=== PATIENT | female | born 2005 | race Caucasian/White ===

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

== ENCOUNTER 2024-10-29 11:28 | Inpatient (IN) | payer MEDICAID, SELFPAY ==
[2024-10-29 11:29] VITALS: BP 143/98; PULSE 97; RESP 18; TEMP 36.7; O2SAT 97; BMI 41.3
--- NOTE | 2024-10-29 11:42 | ED.C_ITS ---
HPI - Psych 2 General: Chief Complaint: Psychiatric Symptoms Stated Complaint: SI Time Seen by Provider: 10/29/24 11:29 Source: patient and EMS Mode of arrival: EMS Limitations: no limitations History of Present Illness: 19-year-old female who states that she h as been having suicidal ideations. She states that she is just been very depressed and has been having a plan of hanging herself. She had previous admissions in the past she has never been admitted here she denies any worse improving factors. Associated symptoms: Reports depression and suicidal ideation Related Data Home Medications Medication Instructions Recorded Confirmed polyethylene glycol 3350 17 17 g PO DAILY PRN constipation 12/09/21 10/29/24 gram/dose oral powder (Miralax) benztropine 1 mg tablet 1 mg PO BID 10/29/24 10/29/24 fluticasone propionate 50 1 spray intranasal DAILY 10/29/24 10/29/24 mcg/actuation nasal spray,suspension gemfibrozil 600 mg tablet 600 mg PO BID 10/29/24 10/29/24 guanfacine 4 mg tablet,extended 4 mg PO DAILY 10/29/24 10/29/24 release 24 hr haloperidol 5 mg tablet 5 mg PO BEDTIME 10/29/24 10/29/24 hydroxyzine HCl 50 mg tablet 50 mg PO TID PRN Itching 10/29/24 10/29/24 lithium carbonate 300 mg capsule 300 mg PO BEDTIME 10/29/24 10/29/24 loratadine 10 mg tablet 10 mg PO DAILY PRN ALLERGIES 10/29/24 10/29/24 metformin 500 mg tablet 500 mg PO BID 10/29/24 10/29/24 norethindrone 1 mg-ethinyl 1 tab PO DAILY 10/29/24 10/29/24 estradiol 20 mcg (21)-iron 75 mg (7) tablet omeprazole 20 mg capsule,delayed 20 mg PO DAILY 10/29/24 10/29/24 release oxcarbazepine 600 mg tablet 600 mg PO BID 10/29/24 10/29/24 sertraline 100 mg tablet 100 mg PO DAILY 10/29/24 10/29/24 Allergies Allergy/AdvReac Type Severity Reaction Status Date / Time divalproex sodium Allergy makes me Verified 01/29/21 07:50 [facility] stay awake for days at a time, no appetite ondansetron [From Zofran] Allergy hard time Verified 01/29/21 07:50 breathing Review of Systems 2 Const: Denies: fever(s), chills, body aches or change in appetite ENMT: Denies: throat pain or dental pain Card: Denies: chest pain Resp: Denies: dyspnea GI: Denies: abdominal pain, nausea, vomiting or diarrhea : Denies: dysuria Musc: Denies: neck pain or back pain Skin/Breast: Denies: rash Neuro: Denies: headache(s) Psych: Reports: depression and suicidal ideation All/Imm: Denies: urticaria PFSH ED 2 PFSH: Medical History (Updated 10/29/24 @ 13:16 by Caro Green MD) Psychiatric care Physical Exam 2 Const: COMMON NORMALS: no acute distress, patient oriented x3 and healthy appearing HENMT: COMMON NORMALS: normocephalic and atraumatic HEAD & SCALP: n ormocephalic and atraumatic Eye: COMMON NORMALS: Equal, round and reactive pupils present and EOMs intact bilaterally PUPIL: Yes Equal, round and reactive pupils present Neck/C-Spine: COMMON NORMALS: full ROM and supple Chest: COMMONS NORMALS: normal inspection of the chest Resp: COMMON NORMALS: normal respiratory effort, No retractions, No use of accessory muscles and clear to auscultation bilaterally AUSCULTATION: clear to auscultation bilaterally Cardio: COMMON NORMALS: regular rate, regular rhythm and No murmurs present (Cardio) RATE: regular rate RHYTHM: regular rhythm Extremity: COMMON NORMALS: normal to inspection and full ROM Neuro: COMMON NORMALS: patient oriented x3, moves all extremities and no focal motor deficits Psych: COMMON NORMALS: mental status grossly normal, Normal thought process present and cooperative THOUGHT PROCESS: Normal thought process present T HOUGHT CONTENT: Yes Suicidality present Skin: COMMON NORMALS: no rashes or lesions noted and no wounds GENERAL SKIN EXAM: no rashes or lesions noted Course 2 Vital Signs: Vital signs: Vital Signs Temperature 98.1 F 10/29/24 11:29 Pulse Rate 97 10/29/24 11:29 Respiratory Rate 18 10/29/24 11:29 Blood Pressure 143/98 10/29/24 11:29 Pulse Oximetry 97 10/29/24 11:29 Oxygen Delivery Me thod Room Air 10/29/24 11:29 MDM - Psych Medical Decision Making Patient presents here with suicidal ideations patient is medically cleared placed on a 96-hour hold and will admit at this time. Medical Records I reviewed the patient's medical records. Lab Data I reviewed the patient's lab results. 10/29/24 12:40 10/29/24 12:40 Laboratory Results WBC 9.95 10^3/uL (4.5-13.0) 10/29/24 12:40 RBC 4.81 10^6/uL (3.85-5.65) 10/29/24 12:40 Hgb 13.60 g/dL (12.4-14.8) 10/29/24 12:40 Hct 42.8 % (36-47) 10/29/24 12:40 MCV 89.0 fl (85-98) 10/29/24 12:40 MCH 28.3 pg (27-33) 10/29/24 12:40 MCHC 31.8 g/dL (30-55) 10/29/24 12:40 RDW 13.2 % (12.1-15.1) 10/29/24 12:40 Plt Count 344 10^3/cmm (157-399) 10/29/24 12:40 MPV 10.2 fL (7.4-10.4) 10/29/24 12:40 Neut % (Auto) 68.4 % 10/29/24 12:40 Lymph % (Auto) 23.4 % 10/29/24 12:40 [place] % (Auto) 6.9 % 10/29/24 12:40 Eos % (Auto) 0.2 % 10/29/24 12:40 Baso % (Auto) 0.5 % 10/29/24 12:40 Neut # (Auto) 6.80 10^3/uL (1.8-8.0) 10/29/24 12:40 Lymph # (Auto) 2.3 10^3/uL (1.5-6.5) 10/29/24 12:40 Carson # (Auto) 0.7 10^3/uL (0.2-0.9) 10/29/24 12:40 Eos # (Auto) 0.0 10^3/uL (0.0-0.8) 10/29/24 12:40 Baso # (Auto) 0.1 10^3/uL (0.0-0.1) 10/29/24 12:40 Nucleated RBC % (auto) 0 % 10/29/24 12:40 Nucleated RBCs # 0.0 /100WBC 10/29/24 12:40 Sodium 142 mmol/L (136-145) 10/29/24 12:40 Potassium 4.1 mmol/L (3.5-5.1) 10/29/24 12:40 Chloride 105 mmol/L (98-107) 10/29/24 12:40 Carbon Dioxide 22 mmol/L (22-29) 10/29/24 12:40 Anion Gap 19.1 (5-19) H 10/29/24 12:40 BUN 19 mg/dL (6-20) 10/29/24 12:40 Creatinine 0.5 mg/dL (0.5-0.9) 10/29/24 12:40 GFR Calculation 157.3 mL/min (90-130) H 10/29/24 12:40 Glucose 108 mg/dL (65-115) 10/29/24 12:40 Calculated Osmolality 297 mOsm/kg (285-295) H 10/29/24 12:40 Calcium 10.0 mg/dL (8.5-10.5) 10/29/24 12:40 Total Bilirubin 0.2 mg/dL (0.15-1.2) 10/29/24 12:40 AST 14 U/L (0-32) 10/29/24 12:40 ALT 10 U/L (0-33) 10/29/24 12:40 Alkaline Phosphatase 142 U/L (35-105) H 10/29/24 12:40 Total Protein 7.6 g/dL (6.6-8.7) 10/29/24 12:40 Albumin 4.6 g/dL (3.5-5.2) 10/29/24 12:40 Globulin 3.0 g/dL (1.3-4.6) 10/29/24 12:40 Salicylates < 0.3 mg/dL (3-10) L 10/29/24 12:40 Acetaminophen < 5.0 ug/mL (10-30) L 10/29/24 12:40 Ethyl Alcohol < 10 mg/dL (0-10) 10/29/24 12:40 All radiology interpretation(s) finalized by discharge Discharge Plan Discharge Patient Disposition: Admitted As Inpatient Admit Provider: Andrade Madrid Clinical Impression: Suicidal ideation Condition: Stable Coding Level of Care Code ED Classifier Operator for [place]
--- NOTE | 2024-10-29 11:50 | PC.NURSE ---
96 hr rights reviewed with patient @1150 with assistance of [facility] svp chief marketing officer Gatito Loredo All education reviewed with patient at this time. No verbalized questions or concerns for HS at time of rights being served. Pt was provided a copy of 96 hr rights. Pt also provided a sandwich. No other needs verbalized to HS.
[2024-10-29 12:48] LABS: Basophils # 0.1 10^3/uL (0.0-0.1); Basophils % 0.5 %; Eosinophils % 0.2 %; Hematocrit 42.8 % (36-47); Lymphocytes # 2.3 10^3/uL (1.5-6.5); Lymphocytes % 23.4 %; Mean Corpuscular HGB Conc 31.8 g/dL (30-55); Mean Corpuscular Hemoglobin 28.3 pg (27-33); Mean Platelet Volume 10.2 fL (7.4-10.4); Monocytes # 0.7 10^3/uL (0.2-0.9); Monocytes % 6.9 %; Neutrophils % 68.4 %; Nucleated Red Blood Cells % 0 %; Platelet Count 344 10^3/cmm (157-399); Red Blood Count 4.81 10^6/uL (3.85-5.65); Red Cell Distribution Width 13.2 % (12.1-15.1); White Blood Count 9.95 10^3/uL (4.5-13.0)
[2024-10-29 13:06] LABS: Alanine Aminotransferase 10 U/L (0-33); Albumin Level 4.6 g/dL (3.5-5.2); Alkaline Phosphatase 142 U/L (35-105); Anion Gap 19.1 (5-19); Aspartate Amino Transferase 14 U/L (0-32); Blood Urea Nitrogen 19 mg/dL (6-20); Carbon Dioxide 22 mmol/L (22-29); Chloride 105 mmol/L (98-107); Creatinine Clr Calc Pharmacy 263.4603; Glomerular Filtration Rate 157.3 mL/min (90-130); Glucose 108 mg/dL (65-115); Osmolality Calculated 297 mOsm/kg (285-295); Potassium 4.1 mmol/L (3.5-5.1); Sodium 142 mmol/L (136-145); Total Bilirubin 0.2 mg/dL (0.15-1.2); Total Protein 7.6 g/dL (6.6-8.7)
[2024-10-29 13:12] LABS: Acetaminophen < 5.0 ug/mL (10-30); Alcohol Level < 10 mg/dL (0-10); Salicylate < 0.3 mg/dL (3-10)
[2024-10-29 13:20] VITALS: BP 112/74; PULSE 110; RESP 16; TEMP 36.8; O2SAT 96
[2024-10-29 13:58] VITALS: BP 112/74; PULSE 110; RESP 16; TEMP 36.8; O2SAT 96
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
[2024-10-29 16:00] LABS: HCG Qualitative Urine. Negative (Negative)
[2024-10-29 16:39] LABS: Amphetamines Screen Urine Negative (Negative); Barbiturates Screen Urine Negative (Negative); Benzodiazepines Screen Urine Negative (Negative); Cocaine Screen Urine Negative (Negative); Opiate Screen Urine Negative (Negative); PCP Screen Urine Negative (Negative); THC Screen Urine Negative (Negative)
[2024-10-29 19:18] VITALS: BP 133/83; PULSE 99; RESP 18; TEMP 36.8; O2SAT 96
[2024-10-29] MEDS: lithium carbonate 300 mg Capsule PO (20:01)
[2024-10-29] MEDS: haloperidol 5 mg Tablet PO (20:02)
[2024-10-30 06:00] VITALS: BP 133/87; PULSE 99; RESP 18; TEMP 36.6; O2SAT 96
--- NOTE | 2024-10-30 08:32 | PC.NURSE ---
Resting in bed this morning and did not want to eat breakfast this morning. She states she did not sleep well at all and that this is not normal for her. She says it is most likely because she is in a new place. When asked if she had any visual or auditory hallucinations today she stated, I've had them before, but not now. Denies si/hi.
[2024-10-30] MEDS: benztropine 1 mg Tablet PO ×2 (08:50→17:28)
[2024-10-30] MEDS: sertraline 100 mg Tablet PO (08:50)
[2024-10-30] MEDS: pantoprazole DR 40 mg Tablet PO (08:50)
[2024-10-30] MEDS: OXcarbazepine 300 mg Tablet 600 MG PO ×2 (08:50→17:28)
[2024-10-30] MEDS: metformin 500 mg Tablet PO ×2 (08:50→17:28)
[2024-10-30] MEDS: GUANFACINE 4 MG 4 EACH PO (08:51)
[2024-10-30] MEDS: gemfibrozil 600 mg Tablet PO ×2 (08:51→19:51)
--- NOTE | 2024-10-30 08:56 | PC.NURSE ---
Patient stated she did not want to use her flonase spray this morning.
[2024-10-30] MEDS: NORETHINDRONE E ESTRADIOL IRON PO (11:34)
[2024-10-30] MEDS: [UNRECOGNIZED DRUG - OTHER] PO (11:34)
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
[2024-10-30 14:00] VITALS: BP 128/81; PULSE 94; RESP 16; TEMP 37.2; O2SAT 97
--- NOTE | 2024-10-30 17:39 | PC.NURSE ---
Verified with [facility] in [place], [place] that patient has a current additional prescription of guanfacine er 2 mg to be taken at 1500 daily. Patient also verbally verified she takes this in addition to the guanfacine er 4mg.
[2024-10-30] MEDS: haloperidol 5 mg Tablet PO (19:51)
[2024-10-30] MEDS: lithium carbonate 300 mg Capsule PO (19:51)
[2024-10-30 19:53] VITALS: BP 134/73; PULSE 90; RESP 18; TEMP 37.1; O2SAT 97
[2024-10-30 21:40] LABS: Lithium 0.1 mmol/L (0.6-1.2)
[2024-10-31 06:30] VITALS: BP 127/77; PULSE 87; RESP 16; O2SAT 96
[2024-10-31] MEDS: gemfibrozil 600 mg Tablet PO ×2 (08:26→17:27)
[2024-10-31] MEDS: metformin 500 mg Tablet PO ×2 (08:26→17:28)
[2024-10-31] MEDS: sertraline 100 mg Tablet PO (08:26)
[2024-10-31] MEDS: pantoprazole DR 40 mg Tablet PO (08:26)
[2024-10-31] MEDS: OXcarbazepine 300 mg Tablet 600 MG PO ×2 (08:26→17:27)
[2024-10-31] MEDS: [UNRECOGNIZED DRUG - OTHER] PO (08:27)
[2024-10-31] MEDS: NORETHINDRONE E ESTRADIOL IRON PO (08:27)
[2024-10-31] MEDS: benztropine 1 mg Tablet PO ×2 (08:27→17:28)
[2024-10-31] MEDS: GUANFACINE 4 MG 4 EACH PO (08:28)
[2024-10-31] MEDS: OLANZapine 5 mg ODT PO ×2 (10:35→17:28)
[2024-10-31] MEDS: ibuprofen 600 mg Tablet PO (11:20)
[2024-10-31 14:00] VITALS: BP 108/77; PULSE 106; RESP 17; TEMP 37.1; O2SAT 97
[2024-10-31 20:28] VITALS: BP 108/76; PULSE 100; RESP 16; TEMP 37; O2SAT 96
[2024-10-31] MEDS: haloperidol 5 mg Tablet PO (20:53)
[2024-10-31] MEDS: lithium carbonate 300 mg Capsule PO (20:54)
[2024-10-31] MEDS: trazodone 50 mg Tablet PO (20:54)
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
[2024-11-01 06:15] VITALS: BP 129/73; PULSE 87; RESP 16; O2SAT 96
[2024-11-01] MEDS: acetaminophen 325 mg Tablet 650 MG PO ×2 (09:12→13:37)
[2024-11-01] MEDS: metformin 500 mg Tablet PO ×2 (09:13→18:23)
[2024-11-01] MEDS: OXcarbazepine 300 mg Tablet 600 MG PO ×2 (09:13→18:22)
[2024-11-01] MEDS: gemfibrozil 600 mg Tablet PO ×2 (09:13→18:22)
[2024-11-01] MEDS: pantoprazole DR 40 mg Tablet PO (09:13)
[2024-11-01] MEDS: sertraline 100 mg Tablet PO (09:13)
[2024-11-01] MEDS: benztropine 1 mg Tablet PO ×2 (09:14→18:23)
[2024-11-01] MEDS: GUANFACINE 4 MG 4 EACH PO (09:14)
[2024-11-01] MEDS: NORETHINDRONE E ESTRADIOL IRON PO (09:17)
[2024-11-01] MEDS: [UNRECOGNIZED DRUG - OTHER] PO (09:17)
[2024-11-01 14:00] VITALS: BP 100/65; PULSE 98; RESP 16; TEMP 36.8; O2SAT 95
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
[2024-11-01] MEDS: haloperidol 5 mg Tablet PO (20:09)
[2024-11-01] MEDS: hyDROXYzine 25 mg Capsule 50 MG PO (20:09)
[2024-11-01] MEDS: lithium carbonate 300 mg Capsule PO (20:09)
[2024-11-01 20:35] VITALS: BP 142/84; PULSE 84; RESP 16; TEMP 36.4; O2SAT 96
[2024-11-02 06:00] VITALS: BP 114/74; PULSE 85; RESP 16; TEMP 36.7; O2SAT 95
[2024-11-02] MEDS: pantoprazole DR 40 mg Tablet PO (08:38)
[2024-11-02] MEDS: sertraline 100 mg Tablet 150 MG PO (08:38)
[2024-11-02] MEDS: benztropine 1 mg Tablet PO (08:39)
[2024-11-02] MEDS: metformin 500 mg Tablet PO (08:39)
[2024-11-02] MEDS: gemfibrozil 600 mg Tablet PO (08:39)
[2024-11-02] MEDS: fluticasone nasal spray 16gm Btl 1 SPRAY INTRANASAL (08:39)
[2024-11-02] MEDS: OXcarbazepine 300 mg Tablet 600 MG PO (08:39)
[2024-11-02] MEDS: GUANFACINE 4 MG 4 EACH PO (08:40)
[2024-11-02] MEDS: [UNRECOGNIZED DRUG - OTHER] PO (08:40)
[2024-11-02] MEDS: NORETHINDRONE E ESTRADIOL IRON PO (08:40)
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
[2024-11-02 11:34] VITALS: BP 114/74; PULSE 85; RESP 16; TEMP 36.7; O2SAT 95
== END 2024-11-02 12:12 | disposition home or self-care (01) | DRG 885 ==
LOC: ER 12:44 → NP 12:58
PROVIDERS: Admitting Provider Psychiatry & Neurology Psychiatry; Emergency Provider Emergency Medicine; PCP Family Medicine; Visit Provider Psychiatry & Neurology Psychiatry
DX: F33.3 Major depressive disorder, recurrent, severe with psychotic symptoms (principal); Z68.41 Body mass index [BMI] 40.0-44.9, adult; R45.851 Suicidal ideations; E66.01 Morbid (severe) obesity due to excess calories; F43.10 Post-traumatic stress disorder, unspecified; F41.1 Generalized anxiety disorder; F60.3 Borderline personality disorder
CPT/HCPCS: 36415; 80053; 80178; 80306; 80307; 81025; 85025; 97150; 97165; 99285

== ENCOUNTER 2025-02-25 17:07 | Inpatient (IN) | payer MEDICAID, SELFPAY ==
[2025-02-25 17:08] VITALS: BP 126/89; PULSE 94; RESP 18; TEMP 36.7; O2SAT 98; BMI 42.6
--- NOTE | 2025-02-25 17:13 | W.ED.PSYCHS ---
HPI - Psych General: Chief Complaint: Psychiatric Symptoms Stated Complaint: SI/ MULTIPLE LACS TO FOREARMS AND THIGHS Time Seen by Provider: 02/25/25 17:07 Source: patient and EMS Mode of arrival: EMS Limitations: no limitations History of Present Illness: 19-year-old female who is here with EMS for suicidal ideations she states she has been extremely depressed and wants to kill herself she has been cutting herself has superficial laxed her arms and legs. She has been admitted previously earlier this year. Denies any worse improved factors Associated symptoms: Reports depression and suicidal ideation Related Data Home Medications ?Medication ?Instructions ?Recorded ?Confirmed polyethylene glycol 3350 17 17 g PO DAILY PRN constipation 12/09/21 02/07/25 gram/dose oral powder (Miralax) fluticasone propionate 50 1 spray intranasal DAILY 10/29/24 02/07/25 mcg/actuation nasal spray,suspension gemfibrozil 600 mg tablet 600 mg PO BID 10/29/24 02/07/25 haloperidol 5 mg tablet 5 mg PO BEDTIME 10/29/24 02/07/25 loratadine 10 mg tablet 10 mg PO DAILY PRN ALLERGIES 10/29/24 02/07/25 metformin 500 mg tablet 500 mg PO BID 10/29/24 02/07/25 norethindrone 1 mg-ethinyl 1 tab PO DAILY 10/29/24 02/07/25 estradiol 20 mcg (21)-iron 75 mg (7) tablet omeprazole 20 mg capsule,delayed 20 mg PO DAILY 10/29/24 02/07/25 release norethindrone 1 mg-ethinyl 1 - 20 tab PO DAILY 10/30/24 02/07/25 estradiol 20 mcg (21)-iron 75 mg (7) tablet Previous Rx's ?Medication ?Instructions ?Recorded benztropine 1 mg tablet 1 mg PO BID #60 tabs 12/14/24 guanfacine 4 mg tablet,extended 4 mg PO DAILY #30 tabs 12/14/24 release 24 hr haloperidol decanoate 50 mg/mL 50 mg IM .q 30 days 30 days #1 mL 12/14/24 intramuscular solution (Haldol Decanoate) hydroxyzine pamoate 100 mg capsule 100 mg PO TID PRN sleep or anxiety 12/14/24 #90 caps oxcarbazepine 600 mg tablet 600 mg PO BID #60 tabs 12/14/24 sertraline 100 mg tablet 150 mg (1.5 x 100 mg) PO DAILY 30 12/14/24 days #45 tabs buspirone 5 mg tablet 5 mg PO TID PRN anxiety #90 tabs 02/07/25 trazodone 50 mg tablet 50 mg PO DAILY PRN sleep #30 tabs 02/07/25 Allergies Allergy/AdvReac Type Severity Reaction Status Date / Time divalproex sodium (From Allergy makes me Verified 01/29/21 07:50 Depakote) stay awake for days at a time, no appetite ondansetron (From Zofran) Allergy hard time Verified 01/29/21 07:50 breathing Review of Systems Const: Denies: fever(s), chills, body aches or change in appetite ENMT: Denies: throat pain or dental pain Card: Denies: chest pain Resp: Denies: dyspnea GI: Denies: abdominal pain, nausea, vomiting or diarrhea Musc: Denies: neck pain or back pain Skin/Breast: Denies: rash Neuro: Denies: headache(s) Psych: Reports: depression and suicidal ideation [facility] PFSH: Medical History Psychiatric care Physical Exam Const: COMMON NORMALS: no acute distress, patient oriented x3 and healthy appearing HENMT: COMMON NORMALS: normocephalic and atraumatic HEAD & SCALP: normocephalic and atraumatic Eye: COMMON NORMALS: conjunctivae normal CONJUNCTIVA: Yes conjunctivae normal Neck/C-Spine: COMMON NORMALS: full ROM and supple Chest: COMMONS NORMALS: normal inspection of the chest Resp: COMMON NORMALS: normal respiratory effort, No retractions, No use of accessory muscles and clear to auscultation bilaterally AUSCULTATION: clear to auscultation bilaterally Cardio: COMMON NORMALS: regular rate, regular rhythm and No murmurs present (Cardio) RATE: regular rate RHYTHM: regular rhythm GI: COMMON NORMALS: Normal to inspection, nondistended, normoactive bowel sounds present, Soft to palpation, non-tender and no masses PALPATION: Yes Soft to palpation Extremity: COMMON NORMALS: full ROM Neuro: COMMON NORMALS: patient oriented x3, moves all extremities and no focal motor deficits Psych: COMMON NORMALS: mental status grossly normal, Normal thought process present and cooperative MOOD & AFFECT: Yes depressed mood THOUGHT PROCESS: Normal thought process present THOUGHT CONTENT: Yes Suicidality present Skin: COMMON NORMALS: no rashes or lesions noted GENERAL SKIN EXAM: no rashes or lesions noted Course Vital Signs: Vital signs: Vital Signs Temperature 98.1 F 02/25/25 17:08 Pulse Rate 94 02/25/25 17:08 Respiratory Rate 18 02/25/25 17:08 Blood Pressure 126/89 02/25/25 17:08 Pulse Oximetry 98 02/25/25 17:08 Oxygen Delivery Me thod Room Air 02/25/25 17:08 MDM - Psych Medical Decision Making Patient presents here with suicidal ideations she is medically cleared I talked to psychiatrist will admit on 96-hour hold Medical Records I reviewed the patient's medical records. Lab Data I reviewed the patient's lab results. 02/25/25 17:35 02/25/25 17:35 Laboratory Results WBC 7.50 10^3/uL (4.5-13.0) 02/25/25 17:35 RBC 4.66 10^6/uL (3.85-5.65) 02/25/25 17:35 Hgb 12.90 g/dL (12.4-14.8) 02/25/25 17:35 Hct 39.5 % (36-47) 02/25/25 17:35 MCV 84.8 fl (85-98) L 02/25/25 17:35 MCH 27.7 pg (27-33) 02/25/25 17:35 MCHC 32.7 g/dL (30-55) 02/25/25 17:35 RDW 11.9 % (12.1-15.1) L 02/25/25 17:35 Plt Count 334 10^3/cmm (157-399) 02/25/25 17:35 MPV 9.7 fL (7.4-10.4) 02/25/25 17:35 Neut % (Auto) 66.5 % 02/25/25 17:35 Lymph % (Auto) 24.1 % 02/25/25 17:35 [place] % (Auto) 5.9 % 02/25/25 17:35 Eos % (Auto) 1.1 % 02/25/25 17:35 Baso % (Auto) 0.8 % 02/25/25 17:35 Neut # (Auto) 4.99 10^3/uL (1.8-8.0) 02/25/25 17:35 Lymph # (Auto) 1.8 10^3/uL (1.5-6.5) 02/25/25 17:35 [place] # (Auto) 0.4 10^3/uL (0.2-0.9) 02/25/25 17:35 Eos # (Auto) 0.1 10^3/uL (0.0-0.8) 02/25/25 17:35 Baso # (Auto) 0.1 10^3/uL (0.0-0.1) 02/25/25 17:35 Nucleated RBC % (auto) 0 % 02/25/25 17:35 Nucleated RBCs # 0.0 /100WBC 02/25/25 17:35 Sodium 140 mmol/L (136-145) 02/25/25 17:35 Potassium 4.1 mmol/L (3.5-5.1) 02/25/25 17:35 Chloride 104 mmol/L (98-107) 02/25/25 17:35 Carbon Dioxide 22 mmol/L (22-29) 02/25/25 17:35 Anion Gap 18.1 (5-19) 02/25/25 17:35 BUN 11 mg/dL (6-20) 02/25/25 17:35 Creatinine 0.5 mg/dL (0.5-0.9) 02/25/25 17:35 Glucose 92 mg/dL (65-115) 02/25/25 17:35 Calculated Osmolality 289 mOsm/kg (285-295) 02/25/25 17:35 Calcium 9.7 mg/dL (8.5-10.5) 02/25/25 17:35 Total Bilirubin 0.2 mg/dL (0.15-1.2) 02/25/25 17:35 AST 22 U/L (0-32) 02/25/25 17:35 ALT 24 U/L (0-33) 02/25/25 17:35 Total Protein 7.4 g/dL (6.6-8.7) 02/25/25 17:35 Albumin 4.3 g/dL (3.5-5.2) 02/25/25 17:35 Globulin 3.1 g/dL (1.3-4.6) 02/25/25 17:35 No radiology studies performed this visit Discharge Plan Discharge Patient Disposition: Admitted As Inpatient Admit Provider: Andrade Madrid Clinical Impression: Suicidal ideation Condition: Stable Coding Level of Care Code ED Metal Slitter for Pelon [place]os[place]
[2025-02-25 17:39] LABS: Basophils # 0.1 10^3/uL (0.0-0.1); Basophils % 0.8 %; Eosinophils # 0.1 10^3/uL (0.0-0.8); Eosinophils % 1.1 %; Hematocrit 39.5 % (36-47); Lymphocytes # 1.8 10^3/uL (1.5-6.5); Lymphocytes % 24.1 %; Mean Corpuscular HGB Conc 32.7 g/dL (30-55); Mean Corpuscular Hemoglobin 27.7 pg (27-33); Mean Corpuscular Volume 84.8 fl (85-98); Mean Platelet Volume 9.7 fL (7.4-10.4); Monocytes # 0.4 10^3/uL (0.2-0.9); Monocytes % 5.9 %; Neutrophils # 4.99 10^3/uL (1.8-8.0); Neutrophils % 66.5 %; Nucleated Red Blood Cells % 0 %; Platelet Count 334 10^3/cmm (157-399); Red Blood Count 4.66 10^6/uL (3.85-5.65); Red Cell Distribution Width 11.9 % (12.1-15.1)
[2025-02-25 17:56] LABS: Alanine Aminotransferase 24 U/L (0-33); Albumin Level 4.3 g/dL (3.5-5.2); Alkaline Phosphatase 129 U/L (35-105); Anion Gap 18.1 (5-19); Aspartate Amino Transferase 22 U/L (0-32); Blood Urea Nitrogen 11 mg/dL (6-20); Calcium 9.7 mg/dL (8.5-10.5); Carbon Dioxide 22 mmol/L (22-29); Chloride 104 mmol/L (98-107); Creatinine Clr Calc Pharmacy 271.1727; Globulin 3.1 g/dL (1.3-4.6); Glomerular Filtration Rate 157.3 mL/min (90-130); Glucose 92 mg/dL (65-115); Osmolality Calculated 289 mOsm/kg (285-295); Potassium 4.1 mmol/L (3.5-5.1); Sodium 140 mmol/L (136-145); Total Bilirubin 0.2 mg/dL (0.15-1.2); Total Protein 7.4 g/dL (6.6-8.7)
[2025-02-25 17:58] LABS: Acetaminophen < 5.0 ug/mL (10-30); Alcohol Level < 10 mg/dL (0-10); Salicylate < 0.3 mg/dL (3-10)
--- NOTE | 2025-02-25 18:03 | PC.NURSE ---
96 hr rights reviewed with pt @[id number] with assistance of [facility] sewage reticulation drafting officer G[place]. All education reviewed at this time. No verbalized questions or concerns for HS. Pt copy was left @bedside with the patient. Pt declined a snack or drink when asked. No further needs
[2025-02-25 18:15] LABS: HCG Qualitative Urine. Negative (Negative)
[2025-02-25] MEDS: LORazepam 2 mg Tablet PO (18:35)
[2025-02-25 18:37] LABS: Amphetamines Screen Urine Negative (Negative); Barbiturates Screen Urine Negative (Negative); Benzodiazepines Screen Urine Negative (Negative); Cocaine Screen Urine Negative (Negative); Opiate Screen Urine Negative (Negative); PCP Screen Urine Negative (Negative); THC Screen Urine Negative (Negative)
--- NOTE | 2025-02-25 19:39 | PC.NURSE ---
pt attempted to choke her self with pillow case. bed and linen removed from room at this time and sleep mat on floor placed for comfort will continue to monitor.
--- NOTE | 2025-02-25 19:58 | PC.NURSE ---
MD made aware of pt attemp to choke herself with pillow case.
[2025-02-25 20:30] VITALS: BP 128/81; PULSE 123; RESP 20; TEMP 37.1; O2SAT 96
[2025-02-25 20:36] VITALS: BP 118/70; PULSE 92; RESP 16; O2SAT 93
--- NOTE | 2025-02-25 21:00 | PC.NURSE ---
BEHAVIORAL During report it was stated by the ER nurse that 10 minutes prior pt had attempted to strangle herself with a pillow case. was notified at this time about pts behaviors in ER and he stated that if the pt could contract for safety that we will let her have the bed sheets and blanket, but if she could not that we needed to remove the linens from her room. This nurse asked pt if she could contract for safety and pt stated no, if you give me a blanket i will strangle myself with it. At this time this nurse informed CNAs to strip pts bed and that she should only have a mattress and a pillow. was then contacted at 2049 to inform him that pt could not contract for safety and he okayed. Syeda Nurse quality compliance manager was notified at this time as well
[2025-02-25 22:00] VITALS: BP 128/81; PULSE 123; RESP 20; TEMP 37.1; O2SAT 96
--- NOTE | 2025-02-25 22:00 | PC.NURSE ---
Pt was admitted to [facility] at 2030 on a 96 hour hold. After Anel RANDHAWA had pt sign admission paperwork this nurse went out into the hallway to talk to pt and orientate her to the unit. While talking to the pt she handed this nurse a blue protective collar that goes on a specimen container. Pt states that she took it while she was in ER. While this nurse and Anel OUTREACH PROFESSIONAL are doing the pts skin assessment it was noted that she had several superficial lacerations on her forearms, thighs and left hand. Pt stated that the lacerations on her forearms and thighs are from earlier today and yesterday while she was at home. When staff asked what happened to her hand she stated that she had made the lacerations on her hand while she was in ER and she had used the blue protective collar that she had just handed this nurse moments prior. It was noted that pts hand is irritated and that there are several small scratches on pts left hand but the skin is not broken. Supervisor Braiding was notified at 2102, Syeda Nurse Stucco Worker was notified at [address] Sylvester was notified at 2108.
--- NOTE | 2025-02-25 22:00 | PC.NURSE ---
Pt was admitted to [facility]PU at 2030 on a 96 hour hold. After Anel RANDHAWA had pt sign admission paperwork this nurse went out into the hallway to talk to pt and orientate her to the unit. While talking to the pt she handed this nurse a blue protective collar that goes on a specimen container. Pt states that she took it while she was in ER. While this nurse and Anel CREATIVE CONSULTANT are doing the pts skin assessment it was noted that she had several superficial lacerations on her forearms, thighs and left hand. Pt stated that the lacerations on her forearms and thighs are from earlier today and yesterday while she was at home. When staff asked what happened to her hand she stated that she had made the lacerations on her hand while she was in ER and she had used the blue protective collar that she had just handed this nurse moments prior. It was noted that pts hand is irritated and that there are several small scratches on pts left hand but the skin is not broken. Operations Research Engineer was notified at 2102, Syeda Nurse Telegraph And Teletype Operator was notified at [address] Sylvester was notified at 2108.
[2025-02-25 23:17] VITALS: BP 124/70; PULSE 122; RESP 20; TEMP 37.4; O2SAT 94
[2025-02-25] MEDS: LORazepam 2 mg/mL INJ 1 mL IM (23:18)
[2025-02-25] MEDS: diphenhydrAMINE 50 mg/mL SDV 1mL IM (23:19)
[2025-02-25] MEDS: haloperidol inj 5 mg/mL INJ 1 mL IM (23:19)
[2025-02-26] MEDS: BuSPIRONE 10 mg Tablet 5 MG PO ×2 (01:09→21:43)
[2025-02-26] MEDS: trazodone 50 mg Tablet PO (01:09)
--- NOTE | 2025-02-26 05:05 | PC.NURSE ---
CODE 10/RESTRAINT At 225 this nurse was called into the dayroom by the one to one sitter. When staff arrived into the dayroom sitter stated that pt is starting to pick and scratch at her skin. This nurse sat next to the pt and attempted to verbally deescalate her. Pt refused to talk to this nurse or answer questions. Rut the sitter stated that the pt passed her a note and then started scratching herself. After several minutes of attempting to verbally deescalate the pt this nurse told staff to call Security and Treatment Plant Mechanic. Moments later, the pt stopped scratching herself and started choking herself with her bra straps. This nurse attempted to loosen the bra straps around the pts neck and immediately yelled for help. At this time Saroj RANDHAWA arrived to the dayroom and attempted to loosen the straps as well and attempted to place the pt into a manual hold until help arrived. Gerard EasyRun arrived and assisted staff with the hold. A Code 10 was called at 2304 and Jory CHIRINOS went and brought the restraint bed to the pt. Pt was put into restraints at 2306 and was rolled back into the restraint room. Jory CHIRINOS went and pulled IM medications at this time. At 2310, this nurse administered IM Ativan 2mg and Haldol 5mg into pts left deltoid and Jory CHIRINOS administered Benadryl 50mg IM into pts right deltoid. Syeda Nurse marketing assistant manager was notified at [address] Madrid was notified 2311. VS were taken at 2317 Temp 99.4, HR- 122, RR- 20, BP- 124/70 and O2 94%. Once pt calmed down this nurse released pts left leg at 2324, right arm at 2329, right leg at 2334 and pt was fully released from restraints at 2339. After leaving the restraint room pt went into her room, laid in bed and asked this nurse for a snack. Sitter at bedside.
[2025-02-26] MEDS: haloperidol 5 mg Tablet PO (05:16)
[2025-02-26] MEDS: acetaminophen 325 mg Tablet 650 MG PO (05:24)
[2025-02-26 06:00] VITALS: RESP 18
--- NOTE | 2025-02-26 06:01 | PC.NURSE ---
Patient refused charge nurse notified.
[2025-02-26] MEDS: benztropine 1 mg Tablet PO ×2 (09:10→17:18)
[2025-02-26] MEDS: metformin 500 mg Tablet PO ×2 (09:10→17:18)
[2025-02-26] MEDS: sertraline 50 mg Tablet 150 MG PO (09:11)
[2025-02-26] MEDS: pantoprazole DR 40 mg Tablet PO (09:11)
[2025-02-26] MEDS: OXcarbazepine 300 mg Tablet 600 MG PO ×2 (09:11→17:20)
--- NOTE | 2025-02-26 11:42 | PC.OT ---
OT eval attempted x2; patient in bed sound asleep
--- NOTE | 2025-02-26 13:42 | PC.NURSE ---
pt mother update pt mother called at this time to speak to pt. pt asleep again and this time.
[2025-02-26 14:00] VITALS: BP 129/86; PULSE 96; RESP 18; TEMP 36.6; O2SAT 95
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
[2025-02-26] MEDS: OLANZapine 5 mg ODT PO ×2 (17:25→21:44)
--- NOTE | 2025-02-26 17:32 | PC.NURSE ---
Patient approached the nurses station, requesting to speak to the nurse in private. The nurse spoke with the patient in her room, The patient reported hearing voices commanding her to self harm. The nurse discussed coping skills with the client, the client reported that at home when she feels overwhelmed she likes to draw and listen to music. The nurse provided the client with crayons and paper and the sitter played music for the patient to listen to on sitters phone. The patient contracted for safety with the nurse and agreed to take PRN medication. 5 mg Zydis ODT administered. Sitter at the bedside.
[2025-02-26] MEDS: hyDROXYzine 25 mg Capsule 100 MG PO (21:45)
[2025-02-26 22:00] VITALS: RESP 16
[2025-02-27 06:00] VITALS: BP 118/71; PULSE 78; RESP 17; TEMP 36.7; O2SAT 97
[2025-02-27] MEDS: OXcarbazepine 300 mg Tablet 600 MG PO ×2 (08:55→17:33)
[2025-02-27] MEDS: sertraline 50 mg Tablet 150 MG PO (08:55)
[2025-02-27] MEDS: pantoprazole DR 40 mg Tablet PO (08:56)
[2025-02-27] MEDS: benztropine 1 mg Tablet PO ×2 (08:56→17:34)
[2025-02-27] MEDS: metformin 500 mg Tablet PO ×2 (08:56→17:34)
[2025-02-27] MEDS: OLANZapine 5 mg ODT PO ×2 (11:54→18:15)
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
[2025-02-27 12:09] LABS: Glucose Point of Care 101 mg/dL (70-110)
[2025-02-27 14:00] VITALS: BP 112/76; PULSE 75; RESP 16; TEMP 36.8; O2SAT 99
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
[2025-02-27 20:44] VITALS: BP 117/68; PULSE 112; RESP 18; TEMP 36.7; O2SAT 94
[2025-02-27] MEDS: cetylpyridinium Lozenge 1 EACH MUCOUS MEM (21:05)
[2025-02-27] MEDS: trazodone 50 mg Tablet PO (21:05)
[2025-02-27] MEDS: hyDROXYzine 25 mg Capsule 100 MG PO (21:05)
[2025-02-27] MEDS: BuSPIRONE 10 mg Tablet 5 MG PO (21:05)
[2025-02-27] MEDS: haloperidol 5 mg Tablet PO (22:05)
[2025-02-27] MEDS: LORazepam 2 mg Tablet PO (22:05)
[2025-02-27] MEDS: diphenhydrAMINE 50 mg Capsule PO (22:05)
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
[2025-02-28 06:00] VITALS: BP 124/73; PULSE 85; RESP 17; TEMP 37.1; O2SAT 95
[2025-02-28] MEDS: BuSPIRONE 10 mg Tablet PO ×3 (08:27→21:42)
[2025-02-28] MEDS: metformin 500 mg Tablet PO ×2 (08:27→17:10)
[2025-02-28] MEDS: benztropine 1 mg Tablet PO ×2 (08:27→17:10)
[2025-02-28] MEDS: pantoprazole DR 40 mg Tablet PO (08:27)
[2025-02-28] MEDS: sertraline 100 mg Tablet 200 MG PO (08:28)
[2025-02-28] MEDS: OXcarbazepine 300 mg Tablet 600 MG PO ×2 (08:28→17:10)
[2025-02-28 14:00] VITALS: BP 105/62; PULSE 133; RESP 18; TEMP 36.9; O2SAT 96
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
[2025-02-28] MEDS: OLANZapine 5 mg ODT PO ×2 (17:10→21:43)
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
[2025-02-28 20:06] VITALS: BP 117/75; PULSE 120; RESP 20; TEMP 36.6; O2SAT 94
[2025-02-28] MEDS: trazodone 50 mg Tablet PO (21:42)
[2025-02-28] MEDS: hyDROXYzine 25 mg Capsule 100 MG PO (21:42)
[2025-03-01 06:00] VITALS: PULSE 65; RESP 16
[2025-03-01] MEDS: pantoprazole DR 40 mg Tablet PO (07:58)
[2025-03-01] MEDS: metformin 500 mg Tablet PO ×2 (07:58→17:10)
[2025-03-01] MEDS: sertraline 100 mg Tablet 200 MG PO (07:59)
[2025-03-01] MEDS: benztropine 1 mg Tablet PO ×2 (07:59→17:10)
[2025-03-01] MEDS: OXcarbazepine 300 mg Tablet 600 MG PO ×2 (07:59→17:10)
[2025-03-01] MEDS: BuSPIRONE 10 mg Tablet PO ×3 (07:59→19:59)
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
[2025-03-01] MEDS: haloperidol 5 mg Tablet PO ×2 (13:29→19:59)
[2025-03-01 14:00] VITALS: BP 145/77; PULSE 117; RESP 18; TEMP 36.8; O2SAT 92
--- NOTE | 2025-03-01 14:09 | PC.NURSE ---
Pt disclosed to this nurse that she is having auditory hallucinations that are telling her to hurt herself when she is alone. Pt also mentioned that she would like to discuss her d/c plan for tomorrow with the Dr. Madrid, due to believing she might not be ready to go home just yet. Pt agreed to come to staff if she felt like she was planning on hurting herself. Pts door to her room is also all the way open to ensure eyes are kept on the pt at all times. Charge nurse notified.
--- NOTE | 2025-03-01 14:28 | PC.NURSE ---
Patient seen sitting on room in floor. She was attempting to strangle herself with a sock. Physician and household manager notified for sitter. Bedding removed from room. Nurse at bedside.
[2025-03-01] MEDS: OLANZapine 5 mg ODT PO (17:14)
--- NOTE | 2025-03-01 17:31 | PC.NURSE ---
Patient mother Genoveva notified of patient strangulation attempt and sitter order. Mother verbalized understanding and voiced that she does not want any calls tonight from the patient that she will call her when ready.
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
[2025-03-01 19:59] VITALS: BP 138/91; PULSE 114; RESP 20; TEMP 36.4; O2SAT 95
[2025-03-01] MEDS: trazodone 50 mg Tablet PO (20:01)
[2025-03-01] MEDS: hyDROXYzine 25 mg Capsule 100 MG PO (20:23)
[2025-03-02 06:00] VITALS: RESP 16
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
[2025-03-02] MEDS: metformin 500 mg Tablet PO ×2 (08:54→17:30)
[2025-03-02] MEDS: OXcarbazepine 300 mg Tablet 600 MG PO ×2 (08:54→17:30)
[2025-03-02] MEDS: sertraline 100 mg Tablet 200 MG PO (08:54)
[2025-03-02] MEDS: benztropine 1 mg Tablet PO ×2 (08:54→17:30)
[2025-03-02] MEDS: pantoprazole DR 40 mg Tablet PO (08:54)
[2025-03-02] MEDS: BuSPIRONE 10 mg Tablet PO ×3 (08:54→20:16)
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
[2025-03-02 14:00] VITALS: BP 138/87; PULSE 80; RESP 17; O2SAT 97
[2025-03-02 19:52] VITALS: BP 109/76; PULSE 80; RESP 16; TEMP 36.3; O2SAT 96
[2025-03-02] MEDS: haloperidol 5 mg Tablet PO (20:16)
[2025-03-02] MEDS: trazodone 50 mg Tablet PO ×2 (20:16→21:07)
[2025-03-02] MEDS: hyDROXYzine 25 mg Capsule 100 MG PO (21:07)
[2025-03-02] MEDS: OLANZapine 5 mg ODT PO (21:07)
--- NOTE | 2025-03-02 21:52 | PC.NURSE ---
Behavior summary: Yari cycles between cheerful, cooperating et engaging mood et sullen, attention seeking behaviors such as stating she feels like self harming if nursing cannot leave another patient's side fast enough to come and visit with her this NOC. She is re-directable for the most part thus far, however with heavy staff assist et suggestions to begin a new task. Was able to verbally discuss cause et effect, whereby she took a shower with appropriate safety rules in place without incident, et asked for hot chocolate afterword et was pleased with result. Sitter is @ her side for safety, however this does not assist with distraction et Yari appears unconcerned that nursing cannot be by her side at all times, et must also tend to other patients. She is often unreasonable to disruptive if she does not gain nsg attention et pronounces behaviours to achieve such. PRN assists given @ HS were trazodone & haldol et @ 2129 with exceleration of behaviors, trazodone, with zyprexa et vistaril per charge nurse advise as well @ 2129. Nsg counseled et helped her plan goals for the NOC et for the daytime, including follow up. She is currently lying in bed, awake but quiet. Nursing continues to monitor for needs et changes.
[2025-03-03 06:00] VITALS: RESP 16
[2025-03-03] MEDS: pantoprazole DR 40 mg Tablet PO (07:59)
[2025-03-03] MEDS: metformin 500 mg Tablet PO ×2 (07:59→17:49)
[2025-03-03] MEDS: benztropine 1 mg Tablet PO (08:00)
[2025-03-03] MEDS: OXcarbazepine 300 mg Tablet 600 MG PO ×2 (08:00→17:49)
[2025-03-03] MEDS: BuSPIRONE 10 mg Tablet PO ×3 (08:00→20:08)
[2025-03-03] MEDS: sertraline 100 mg Tablet 200 MG PO (08:00)
[2025-03-03] MEDS: haloperidol 5 mg Tablet PO ×2 (09:43→20:08)
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
[2025-03-03 14:00] VITALS: BP 114/67; PULSE 88; RESP 17; TEMP 36.6; O2SAT 97
--- NOTE | 2025-03-03 17:09 | W.PM.BREST ---
Face to Face: Restrn/Seclusion Events leading up to initiation: Verbalizing threat to self or others and Demonstrating self-destructive behavior (cutting, hitting rodriguez etc.) Evaluation of patient's immediate situation: Alert and oriented and No signs of physical distress Patient reaction since intervention applied: Behaviors/threats have lessened, but still present Review of medications: Yes Patient's current medical/behavioral condition: No new concerns since last ROS Need for restraint or seclusion is: No longer present Attending notified: Attending completed assessment
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
--- NOTE | 2025-03-03 19:02 | PC.NURSE ---
1721 pt out of restraints, vital signs taken bp 117/77 pulse 83 resp 16 temp 97.3 o2 sat97% room air. pt alert and oreintated x4, denies ideation for self harm at this time.
[2025-03-03] MEDS: OLANZapine 5 mg ODT PO (20:08)
[2025-03-03] MEDS: trazodone 50 mg Tablet PO (20:08)
[2025-03-03 20:47] VITALS: BP 86/60; PULSE 109; RESP 18; TEMP 37; O2SAT 97
[2025-03-04 06:00] VITALS: RESP 16
[2025-03-04] MEDS: sertraline 100 mg Tablet 200 MG PO (09:39)
[2025-03-04] MEDS: OXcarbazepine 300 mg Tablet 600 MG PO ×2 (09:40→17:28)
[2025-03-04] MEDS: BuSPIRONE 10 mg Tablet PO ×2 (09:40→15:47)
[2025-03-04] MEDS: metformin 500 mg Tablet PO ×2 (09:40→17:29)
[2025-03-04] MEDS: pantoprazole DR 40 mg Tablet PO (09:40)
[2025-03-04] MEDS: OLANZapine 5 mg ODT PO (10:57)
[2025-03-04 14:00] VITALS: BP 108/78; PULSE 94; RESP 16; TEMP 36.4; O2SAT 96
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
[2025-03-04] MEDS: hyDROXYzine 25 mg Capsule 100 MG PO (15:47)
[2025-03-04] MEDS: lithium carbonate 300 mg Capsule PO (19:13)
[2025-03-04 19:20] VITALS: BP 112/79; PULSE 100; RESP 18; TEMP 36.6; O2SAT 99
[2025-03-04] MEDS: haloperidol 5 mg Tablet PO (20:15)
[2025-03-05 06:00] VITALS: BP 110/71; PULSE 70; RESP 18; TEMP 36.6; O2SAT 96
[2025-03-05] MEDS: OXcarbazepine 300 mg Tablet 600 MG PO ×2 (08:43→17:42)
[2025-03-05] MEDS: sertraline 100 mg Tablet 200 MG PO (08:44)
[2025-03-05] MEDS: haloperidol 5 mg Tablet PO ×2 (08:44→11:46)
[2025-03-05] MEDS: pantoprazole DR 40 mg Tablet PO (08:44)
[2025-03-05] MEDS: metformin 500 mg Tablet PO ×2 (08:44→17:42)
--- NOTE | 2025-03-05 11:02 | PC.NURSE ---
Self harm occurred while in the dayroom, pt had her hands under the table and was scratching her left forearm with her right hand, causing a red spot. nurse will monitor for any assistance needed. Pt was redirected by this nurse and stopped the self harm.
--- NOTE | 2025-03-05 11:06 | PC.NURSE ---
Pt has been self reporting her hallucinations and asking for help with coping skills and worksheets. This nurse and pt also walked the halls for three big laps and pt then stated that she was feeling better and would like to return to group. 1:1 sitter is present at the pt's side.
[2025-03-05] MEDS: hyDROXYzine 25 mg Capsule 100 MG PO (11:46)
--- NOTE | 2025-03-05 11:48 | PC.NURSE ---
Administered PRN medications for hallucinations and pt self harming, pt has 1:1 sitter present.
--- NOTE | 2025-03-05 11:53 | PC.NURSE ---
Pt was sitting on bed with her shirt waded up in her fists trying to restrict her airway. This nurse was able to remove the pt's shirt and we discussed her future options of seclusion room or restraint bed if this self harm behaviors continues. 1:1 sitter is present.
[2025-03-05 14:00] VITALS: BP 113/77; PULSE 112; RESP 18; TEMP 36.4; O2SAT 99
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
[2025-03-05 19:29] VITALS: BP 71/55; PULSE 88; RESP 16; TEMP 37; O2SAT 96
[2025-03-05] MEDS: lithium carbonate 300 mg Capsule PO (20:18)
[2025-03-05] MEDS: prazosin 1 mg Capsule PO (20:18)
[2025-03-06 05:59] VITALS: BP 177/77; PULSE 77; RESP 16; TEMP 36.6; O2SAT 97
[2025-03-06] MEDS: lithium carbonate 150 mg Capsule PO (08:55)
[2025-03-06] MEDS: OXcarbazepine 300 mg Tablet 600 MG PO ×2 (08:56→17:12)
[2025-03-06] MEDS: pantoprazole DR 40 mg Tablet PO (08:56)
[2025-03-06] MEDS: metformin 500 mg Tablet PO ×2 (08:56→17:12)
[2025-03-06] MEDS: sertraline 100 mg Tablet 200 MG PO (08:56)
[2025-03-06] MEDS: haloperidol 5 mg Tablet PO ×2 (09:31→14:46)
[2025-03-06] MEDS: hyDROXYzine 25 mg Capsule 100 MG PO ×2 (09:32→15:55)
[2025-03-06 14:00] VITALS: BP 104/76; PULSE 96; RESP 17; TEMP 36.7; O2SAT 97
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
[2025-03-06 20:00] VITALS: BP 113/77; PULSE 94; RESP 16; TEMP 36.6; O2SAT 95
[2025-03-06] MEDS: lithium carbonate 300 mg Capsule PO (20:09)
[2025-03-06] MEDS: trazodone 50 mg Tablet PO (20:09)
[2025-03-06] MEDS: prazosin 1 mg Capsule PO (20:09)
[2025-03-06] MEDS: neomycin-poly-bacitracin oint 28 gm 1 APPLIC TOPICAL (21:50)
[2025-03-07 06:00] VITALS: BP 105/63; PULSE 63; RESP 16; TEMP 36.4; O2SAT 95
[2025-03-07] MEDS: lithium carbonate 150 mg Capsule 300 MG PO (08:22)
[2025-03-07] MEDS: metformin 500 mg Tablet PO ×2 (08:22→17:37)
[2025-03-07] MEDS: OXcarbazepine 300 mg Tablet 600 MG PO ×2 (08:22→20:15)
[2025-03-07] MEDS: sertraline 100 mg Tablet 200 MG PO (08:22)
[2025-03-07] MEDS: pantoprazole DR 40 mg Tablet PO (08:22)
[2025-03-07] MEDS: neomycin-poly-bacitracin oint 28 gm 1 APPLIC TOPICAL ×2 (08:26→19:28)
[2025-03-07] MEDS: cetylpyridinium Lozenge 1 EACH MUCOUS MEM (08:53)
[2025-03-07 09:04] LABS: Lithium 0.4 mmol/L (0.6-1.2)
[2025-03-07] MEDS: hyDROXYzine 25 mg Capsule 100 MG PO (09:21)
[2025-03-07] MEDS: haloperidol 5 mg Tablet PO (09:21)
--- NOTE | 2025-03-07 10:54 | PC.NURSE ---
Removed pt's bedding and blankets from room, Pt had wrapped the sheet tightly around her neck. This nurse was able to quickly remove the sheet and all the bedding, no harm was caused to the pt. Self harm behaviors have occurred this morning on and off. Pt has been scratching and picking at scabs and making new superficial wounds on bilateral arms and wrists and also bilateral interior ankles, small scratches. Pt has 1:1 sitter present.
[2025-03-07] MEDS: OLANZapine 5 mg ODT PO ×2 (13:58→17:38)
[2025-03-07 14:00] VITALS: BP 119/71; PULSE 94; RESP 16; TEMP 36.6; O2SAT 93
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
[2025-03-07] MEDS: hyDROXYzine 25 mg Capsule 50 MG PO (17:38)
[2025-03-07] MEDS: lithium carbonate 300 mg Capsule PO (19:28)
[2025-03-07 19:40] VITALS: BP 115/78; PULSE 103; RESP 18; TEMP 36.8; O2SAT 96
[2025-03-07] MEDS: prazosin 1 mg Capsule PO (20:15)
[2025-03-08 06:24] VITALS: BP 124/91; PULSE 57; RESP 18; TEMP 36.6; O2SAT 98
[2025-03-08] MEDS: sertraline 100 mg Tablet 200 MG PO (09:17)
[2025-03-08] MEDS: neomycin-poly-bacitracin oint 28 gm 1 APPLIC TOPICAL ×2 (09:17→17:23)
[2025-03-08] MEDS: haloperidol 5 mg Tablet PO (09:17)
[2025-03-08] MEDS: OXcarbazepine 300 mg Tablet PO (09:17)
[2025-03-08] MEDS: metformin 500 mg Tablet PO ×2 (09:17→17:22)
[2025-03-08] MEDS: pantoprazole DR 40 mg Tablet PO (09:17)
[2025-03-08] MEDS: lithium carbonate 150 mg Capsule 300 MG PO (09:17)
--- NOTE | 2025-03-08 12:15 | PC.NURSE ---
spoke with pt on ablility when anxiety seems overwhelming to come up with plans to do instead of hurting herself. pt states playing cards, talking to other people, walking, and watching tv helps alot
[2025-03-08 14:00] VITALS: BP 130/87; PULSE 98; RESP 16; TEMP 36.4; O2SAT 97
[2025-03-08] MEDS: hyDROXYzine 25 mg Capsule 50 MG PO (14:48)
[2025-03-08] MEDS: OLANZapine 5 mg ODT PO (14:48)
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
[2025-03-08] MEDS: prazosin 1 mg Capsule PO (20:10)
[2025-03-08] MEDS: OXcarbazepine 300 mg Tablet 600 MG PO (20:10)
[2025-03-08] MEDS: lithium carbonate 300 mg Capsule PO (20:10)
[2025-03-08 20:39] VITALS: BP 115/77; PULSE 93; RESP 18; TEMP 36.6; O2SAT 95
[2025-03-09 06:00] VITALS: BP 121/74; PULSE 78; RESP 17; TEMP 36.6; O2SAT 97
[2025-03-09] MEDS: OXcarbazepine 300 mg Tablet PO (09:30)
[2025-03-09] MEDS: lithium carbonate 150 mg Capsule 300 MG PO (09:30)
[2025-03-09] MEDS: sertraline 100 mg Tablet 200 MG PO (09:30)
[2025-03-09] MEDS: metformin 500 mg Tablet PO ×2 (09:31→17:27)
[2025-03-09] MEDS: pantoprazole DR 40 mg Tablet PO (09:31)
[2025-03-09] MEDS: neomycin-poly-bacitracin oint 28 gm 1 APPLIC TOPICAL ×2 (09:31→17:28)
--- NOTE | 2025-03-09 09:51 | PC.NURSE ---
was reported to this nurse pt slept well during the night, pt assisted with another pt on calming her down. pt is now taking a shower, states she is feeling really good today. denies si/hi at this time.
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
[2025-03-09 14:00] VITALS: BP 130/88; PULSE 100; RESP 16; TEMP 36.9; O2SAT 97
[2025-03-09] MEDS: OLANZapine 5 mg ODT PO (14:39)
[2025-03-09] MEDS: acetaminophen 325 mg Tablet 650 MG PO (16:36)
[2025-03-09] MEDS: haloperidol 5 mg Tablet PO (18:06)
--- NOTE | 2025-03-09 18:07 | PC.NURSE ---
pt states hearing voices, states she does not want to self harm but requesting haldol po medication for the voices.
[2025-03-09 19:57] VITALS: BP 131/88; PULSE 98; RESP 18; TEMP 36.8; O2SAT 94; BMI 42.4
[2025-03-09] MEDS: lithium carbonate 300 mg Capsule PO (20:17)
[2025-03-09] MEDS: OXcarbazepine 300 mg Tablet 600 MG PO (20:17)
[2025-03-09] MEDS: prazosin 1 mg Capsule PO (20:17)
[2025-03-09] MEDS: trazodone 50 mg Tablet PO (20:39)
[2025-03-10 06:00] VITALS: BP 123/80; PULSE 100; RESP 17; TEMP 36.4; O2SAT 94
[2025-03-10] MEDS: sertraline 100 mg Tablet 200 MG PO (09:09)
[2025-03-10] MEDS: lithium carbonate 150 mg Capsule 300 MG PO (09:09)
[2025-03-10] MEDS: OXcarbazepine 300 mg Tablet PO (09:09)
[2025-03-10] MEDS: pantoprazole DR 40 mg Tablet PO (09:10)
[2025-03-10] MEDS: metformin 500 mg Tablet PO ×2 (09:10→17:23)
[2025-03-10] MEDS: neomycin-poly-bacitracin oint 28 gm 1 APPLIC TOPICAL ×2 (09:12→17:24)
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
[2025-03-10] MEDS: OLANZapine 5 mg ODT PO ×2 (11:04→18:29)
[2025-03-10] MEDS: hyDROXYzine 25 mg Capsule 50 MG PO ×2 (11:04→18:28)
[2025-03-10] MEDS: haloperidol 5 mg Tablet PO ×2 (11:41→19:07)
[2025-03-10] MEDS: haloperidol inj 5 mg/mL INJ 1 mL IM (12:30)
[2025-03-10] MEDS: LORazepam 2 mg/mL INJ 1 mL IM (12:30)
[2025-03-10] MEDS: diphenhydrAMINE 50 mg/mL SDV 1mL IM (12:30)
--- NOTE | 2025-03-10 13:20 | W.PM.BREST ---
Face to Face: Restrn/Seclusion Events leading up to initiation: Demonstrating self-destructive behavior (cutting, hitting rodriguez etc.) Evaluation of patient's immediate situation: Alert and oriented and Signs of psychological distress Patient reaction since intervention applied: De-escalation/no displays of violent/destructive behavior Recent labs reviewed: No Review of medications: Yes Patient's current medical/behavioral condition: No new concerns since last ROS Need for restraint or seclusion is: No longer present Attending notified: Attending completed assessment
--- NOTE | 2025-03-10 13:27 | PC.NURSE ---
left leg restraint removed at 1320
--- NOTE | 2025-03-10 13:43 | PC.NURSE ---
@1130 this nurse was called to pt room by white lead grinder upon arriving pt had back to room with arms folded to what appeared to self harm. at that time this underwriter solicitation director instructed pt to turn around inorder to see pt arms pt refused. asked pt again to see her arms or we would have to turn pt around to ensure her safety, pt refused, upon placing hand on pt wrist to pull one hand off of the other pt began to struggle, throwing her arms up, at that time white lead grinder and this underwriter solicitation director to ensured pt safety and staff safety by restraining pt from self harm with holding her arms and wrist down pt began to throw her body around, threw herself backward. attempted to verbal deescalate pt, when patient appeared to be calm asked pt to confirm to safety pt verbally agreed pt wrist freed at that time. Again pt attempted to harm herself by scratching, throwing herself around the bed at that time white lead grinder and this underwriter solicitation director again grabbed pt by wrists, security was walking in hallway staff requested his assistance. pt held for her safety until she could until pt again calmed down, speaking with pt on what caused pt to want to harm herself pt stated that when speaking to her mother she stated she was going to give her phone to her father to use and that pt will not have a phone when she gets home. verbal education given to patient on different option to deal with being upset instead of self harming. pt at time agreed to unit safety. This underwriter solicitation director at that time administered prn oral medication for anxiety and hearing voices.
--- NOTE | 2025-03-10 13:47 | PC.NURSE ---
1215 after Assistant Professor Of Marine Biology spoke with pt about thoughts of self harming this wildlife ecologist spoke held conversation about being upset and wanting to self harm. pt continues to state she is upset with her mom about taking away her phone. pt then grabbed her arm and started scratching herself at that retail tire sales manager and this junior copywriter restrained pt arms so she could not further hurt herself. nurse tech enter room switched places with this junior copywriter, went to inform ornamental ironworking supervisor of pt self harming, @ 1230 administered haldol 5 mg, lorazepam 2mg in left deltoid, benadryl 50mg im right deltoid. pt walk up to nurses station and filling station attendant front of it to continue to talk about ways distract on self harming. while this junior copywriter was charting on pt condition I noticed pt started to dig thumbnail into her index finger of right hand when pt instructed to stop pt continued to do so Assistant Professor Of Marine Biology and myself went out to nurse station attempted to stop pt from scratching herself pt pulled from hands turned walking down hallway stating she was going toher room and laydown. pt then slammed door to room when staff arrived pt in corner sitting scratching herself. attempted to restrain pt, after staff unable to keep pt from self harming a code 10 was called. charge attendant, warehouse shipping associate, security, nurse tech, 3 retail tire sales manager and Doctor in room with patient. pt escorted by staff and security to restraint room. restraint started at 1255.
[2025-03-10 14:00] VITALS: BP 120/84; PULSE 94; RESP 18; TEMP 37.1; O2SAT 96
--- NOTE | 2025-03-10 14:50 | PC.NURSE ---
1215 after Prosthodontist spoke with pt about thoughts of self harming this crop or grain farmer spoke held conversation about being upset and wanting to self harm. pt continues to state she is upset with her mom about taking away her phone. pt then grabbed her arm and started scratching herself at that adjudication specialist and this data analyst report writer restrained pt arms so she could not further hurt herself. nurse tech enter room switched places with this data analyst report writer, went to inform charge master coordinator of pt self harming, @ 1230 administered Haldol 5 mg, lorazepam 2mg in left deltoid, Benadryl 50mg im right deltoid. pt walk up to nurses station and information analyst front of it to continue to talk about ways distract on self harming. while this data analyst report writer was charting on pt condition I noticed pt started to dig thumbnail into her index finger of right hand when pt instructed to stop pt continued to do so Prosthodontist and myself went out to nurse station attempted to stop pt from scratching herself pt pulled from hands turned walking down hallway stating she was going toher room and laydown. pt then slammed door to room when staff arrived pt in corner sitting scratching herself. attempted to restrain pt, after staff unable to keep pt from self harming a code 10 was called. charge master coordinator, greenhouse florist, security, nurse tech, 3 adjudication specialist and Doctor in room with patient. pt escorted by staff and security to restraint room. restraint started at 1255. vital signs taken bp 127/83, temp 98.8, resp 18, pulse 99, o2 97%. nurse tech with in 1 foot of pt at all times to ensure pt safety. @ 1310 vital signs taken bp 124/75 , temp 98.5, pulse 95, o2 97%, resp 18. @1325 vital signs taken bp 130/87 o2 97% pulse 98, resp 18. All extremities assess for circulation. left leg removed from restraint. @ 1327 right leg removed from restraint. pt continued to verbally contract for safety. @ 1328 left arm released. @ 1330 right arm released vital signs taken bp 120/84, pulse 94, o2 96% temp 98.8 resp 18 pt continued to contract for safety sat up escorted by staff to room pt laved down in bed.
--- NOTE | 2025-03-10 16:34 | PC.NURSE ---
spoke with Genoveva (pt mother and guardian) she agreed that for right now she will limit contact with pt. she will call nursing station to receive updates on pt. Genoveva stated she would love to have her daughter home before she goes to the next facility.
[2025-03-10] MEDS: diphenhydrAMINE 50 mg Capsule PO (19:07)
[2025-03-10] MEDS: LORazepam 2 mg Tablet PO (19:07)
[2025-03-10 20:08] VITALS: BP 122/81; PULSE 93; RESP 18; TEMP 36.6; O2SAT 96
[2025-03-10] MEDS: OXcarbazepine 300 mg Tablet 600 MG PO (20:19)
[2025-03-10] MEDS: prazosin 1 mg Capsule 2 MG PO (20:19)
[2025-03-10] MEDS: lithium carbonate 300 mg Capsule PO (20:20)
[2025-03-11 06:00] VITALS: BP 134/90; PULSE 101; RESP 16; TEMP 36.3; O2SAT 96
[2025-03-11] MEDS: lithium carbonate 150 mg Capsule 300 MG PO (08:42)
[2025-03-11] MEDS: pantoprazole DR 40 mg Tablet PO (08:42)
[2025-03-11] MEDS: metformin 500 mg Tablet PO ×2 (08:42→17:31)
[2025-03-11] MEDS: sertraline 100 mg Tablet 200 MG PO (08:42)
[2025-03-11] MEDS: OXcarbazepine 300 mg Tablet PO ×2 (08:42→20:06)
[2025-03-11] MEDS: OLANZapine 5 mg ODT PO (08:44)
[2025-03-11] MEDS: LORazepam 2 mg Tablet PO (11:06)
[2025-03-11] MEDS: haloperidol 5 mg Tablet PO (11:06)
--- NOTE | 2025-03-11 11:06 | PC.NURSE ---
PRN ATIVAN/HALDOL ATIVAN 2 MG GIVEN PO WITH HALDOL 5 MG PO PER PT C/O INCREASED ANXIETY/THOUGHTS OF SELF HARM/ACTS OF SELF HARM PATIENT WAS IN ROOM SITTING ON FLOOR, TOOK HER SCRUB TOP AND WAS ATTEMPTING TO CHOKE HERSELF WITH IT. SEVERAL STAFF IN ROOM TO RESPOND. PATIENT AGREEABLE TO TAKING MEDICINE. NURSE SPOKE WITH PHYSICIAN & ORDER OBTAINED FOR 1:1 AT THIS TIME TO ENSURE PATIENT SAFETY
[2025-03-11] MEDS: neomycin-poly-bacitracin oint 28 gm 1 APPLIC TOPICAL ×2 (11:27→17:31)
[2025-03-11] MEDS: hyDROXYzine 25 mg Capsule 100 MG PO (12:00)
--- NOTE | 2025-03-11 12:00 | PC.NURSE ---
prn Vistaril 100 mg given po per pt c/o further anxiety
[2025-03-11 14:00] VITALS: BP 119/79; PULSE 99; RESP 17; TEMP 36.6; O2SAT 96
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
[2025-03-11 19:15] VITALS: BP 125/89; PULSE 92; RESP 18; TEMP 36.7; O2SAT 96
[2025-03-11] MEDS: prazosin 1 mg Capsule 2 MG PO (20:05)
[2025-03-11] MEDS: lithium carbonate 300 mg Capsule PO (20:05)
[2025-03-12 06:00] VITALS: BP 127/77; PULSE 96; RESP 18; TEMP 36.6; O2SAT 97
[2025-03-12] MEDS: OLANZapine 5 mg ODT PO ×2 (06:31→17:00)
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
[2025-03-12] MEDS: OXcarbazepine 300 mg Tablet PO ×2 (07:49→19:16)
[2025-03-12] MEDS: sertraline 100 mg Tablet 200 MG PO (07:50)
[2025-03-12] MEDS: lithium carbonate 150 mg Capsule 300 MG PO (07:50)
[2025-03-12] MEDS: metformin 500 mg Tablet PO ×2 (07:50→17:01)
[2025-03-12] MEDS: pantoprazole DR 40 mg Tablet PO (07:51)
[2025-03-12] MEDS: neomycin-poly-bacitracin oint 28 gm 1 APPLIC TOPICAL (07:51)
[2025-03-12] MEDS: acetaminophen 325 mg Tablet 650 MG PO ×2 (09:33→14:51)
[2025-03-12] MEDS: hyDROXYzine 25 mg Capsule 100 MG PO (10:41)
[2025-03-12] MEDS: LORazepam 2 mg Tablet PO (12:11)
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
--- NOTE | 2025-03-12 13:07 | CT_ITS ---
WS: [id number] CT HEAD NONCONTRAST HISTORY: pt fell hitting right side of head. TECHNIQUE: Contiguous axial imaging performed through the brain. Bone and soft tissue windows. Sagittal and coronal reformats reviewed. All CT scans at [facility] use at least one of these dose optimization techniques: automated exposure control; mA and/or kV adjustment per patient size (includes targeted exams where dose is matched to clinical indication); or iterative reconstruction. DLP: 1064.18 mGy.cm COMPARISON: None available. No acute intracranial hemorrhage, midline shift or mass effect. No atrophy or prior infarcts or herniation. Ventricles: Normal size with no hydrocephalus. Paranasal sinuses: As visualized are clear. Mastoid air cells: Well pneumatized. Calvarium and scalp: Skull is intact with no soft tissue edema or swelling. CT/CT head wo con* [id number] IMPRESSION: Negative head CT.
[2025-03-12 13:08] VITALS: BP 137/91; PULSE 112; RESP 16; TEMP 37; O2SAT 95
--- NOTE | 2025-03-12 13:56 | XRR_ITS ---
PROCEDURE INFORMATION: Exam: XR Right Ankle Exam date and time: 03/12/2025 2:07 PM Age: 19 years old Clinical indication: Pain; Ankle; Right; Additional info: PT rolled off bed TECHNIQUE: Imaging protocol: Radiologic exam of the right ankle. Views: 3 or more views. COMPARISON: CR (LOW EXM, ) 03/12/2025 2:07 PM FINDINGS: Bones/joints: No fracture or acute osseous abnormality seen about the right ankle. Ankle joint appears maintained/intact. No abnormal soft tissue calcification is seen. Soft tissues: No significant focal soft tissue abnormality. XR/XR ankle RT min 3V* [id number] IMPRESSION: No fracture or dislocation.
--- NOTE | 2025-03-12 13:56 | XRR_ITS ---
PROCEDURE INFORMATION: Exam: XR Right Foot Exam date and time: 03/12/2025 2:07 PM Age: 19 years old Clinical indication: Pain; Foot; Right; Additional info: PT rolled off bed TECHNIQUE: Imaging protocol: Radiologic exam of the right foot. Views: 3 or more views. COMPARISON: CR XR ankle RT min 3V* [id number] 03/12/2025 2:07 PM FINDINGS: Bones/joints: No fracture or dislocation is seen about the right foot. No acute osseous abnormality. No abnormal soft tissue calcification is seen. Soft tissues: No significant focal soft tissue abnormality. Mild soft tissue swelling. XR/XR foot RT min 3V* [id number] IMPRESSION: No fracture or dislocation.
--- NOTE | 2025-03-12 14:21 | PC.NURSE ---
attempted to notify pt guardian of pt fall left voice message for her to call [phone] direct line to neuro psych unit ask for johnathon.
--- NOTE | 2025-03-12 14:52 | PC.NURSE ---
pt up walking in hallway, assisted by wall. requesting tylenol for pain.
--- NOTE | 2025-03-12 15:55 | PC.NURSE ---
@1550 pt sitting down in dayroom pt was seen going down to floor, when staff arrived pt laying in floor with head resting on arms. pt did not respond to verbal stimuli, this financial underwriter had psa go notify rn discharge and to have Grappler bring vital signs machine. pt while not responding assisted staff in rolling herself over. after pt was rolled onto her back staff notified pt that a sternum rub may be preformed if she is unable to respond. pt continued to lay on back, sternum rub preformed pt automatically responded verbally and physically sitting up. pt then got up in chair vital signs taken bp 137/94 resp 18. pt denies injuries at this time. pt escorted back to room for her saftey. pt continues to come up to nurses station and back to room.
[2025-03-12] MEDS: prazosin 1 mg Capsule 2 MG PO (19:16)
[2025-03-12] MEDS: lithium carbonate 300 mg Capsule PO (19:16)
[2025-03-12 19:41] VITALS: BP 129/82; PULSE 109; RESP 19; TEMP 36.8; O2SAT 95
[2025-03-12] MEDS: haloperidol 5 mg Tablet PO (20:46)
--- NOTE | 2025-03-13 06:31 | PC.NURSE ---
vs not collected per charge resp 16
[2025-03-13] MEDS: sertraline 100 mg Tablet 200 MG PO (08:52)
[2025-03-13] MEDS: lithium carbonate 150 mg Capsule 300 MG PO (08:52)
[2025-03-13] MEDS: pantoprazole DR 40 mg Tablet PO (08:52)
[2025-03-13] MEDS: OXcarbazepine 300 mg Tablet PO ×2 (08:53→20:19)
[2025-03-13] MEDS: metformin 500 mg Tablet PO ×2 (08:53→17:11)
[2025-03-13] MEDS: loperamide 2 mg Capsule PO (09:46)
[2025-03-13] MEDS: acetaminophen 325 mg Tablet 650 MG PO ×2 (13:28→18:15)
[2025-03-13 14:00] VITALS: BP 124/77; PULSE 80; RESP 18; TEMP 36.4; O2SAT 96
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
[2025-03-13 19:55] VITALS: BP 123/77; PULSE 90; RESP 18; TEMP 37.3; O2SAT 96
[2025-03-13] MEDS: haloperidol 5 mg Tablet PO (20:19)
[2025-03-13] MEDS: lithium carbonate 300 mg Capsule PO (20:19)
[2025-03-13] MEDS: prazosin 1 mg Capsule 2 MG PO (20:19)
[2025-03-14 06:00] VITALS: BP 128/88; PULSE 90; RESP 18; TEMP 36.3; O2SAT 98
[2025-03-14] MEDS: pantoprazole DR 40 mg Tablet PO (07:42)
[2025-03-14] MEDS: lithium carbonate 150 mg Capsule 300 MG PO (07:42)
[2025-03-14] MEDS: metformin 500 mg Tablet PO ×2 (07:42→17:45)
[2025-03-14] MEDS: haloperidol 5 mg Tablet PO ×2 (07:42→16:56)
[2025-03-14] MEDS: OXcarbazepine 300 mg Tablet PO ×2 (07:42→20:01)
[2025-03-14] MEDS: sertraline 100 mg Tablet 200 MG PO (07:42)
[2025-03-14] MEDS: neomycin-poly-bacitracin oint 28 gm 1 APPLIC TOPICAL (07:58)
[2025-03-14 08:07] LABS: Lithium 0.4 mmol/L (0.6-1.2)
[2025-03-14 08:10] LABS: Basophils # 0.1 10^3/uL (0.0-0.1); Basophils % 0.9 %; Eosinophils # 0.1 10^3/uL (0.0-0.8); Hematocrit 42.5 % (36-47); Lymphocytes # 2.4 10^3/uL (1.5-6.5); Lymphocytes % 34.1 %; Mean Corpuscular HGB Conc 31.3 g/dL (30-55); Mean Corpuscular Hemoglobin 28.3 pg (27-33); Mean Corpuscular Volume 90.4 fl (85-98); Mean Platelet Volume 10.3 fL (7.4-10.4); Monocytes # 0.6 10^3/uL (0.2-0.9); Neutrophils # 3.77 10^3/uL (1.8-8.0); Neutrophils % 53.6 %; Nucleated Red Blood Cells % 0 %; Platelet Count 263 10^3/cmm (157-399); Red Cell Distribution Width 13.2 % (12.1-15.1); White Blood Count 7.03 10^3/uL (4.5-13.0)
[2025-03-14 08:17] LABS: Alanine Aminotransferase 50 U/L (0-33); Albumin Level 4.4 g/dL (3.5-5.2); Alkaline Phosphatase 122 U/L (35-105); Anion Gap 19.2 (5-19); Aspartate Amino Transferase 28 U/L (0-32); Blood Urea Nitrogen 11 mg/dL (6-20); Calcium 9.7 mg/dL (8.5-10.5); Carbon Dioxide 24 mmol/L (22-29); Chloride 104 mmol/L (98-107); Globulin 2.6 g/dL (1.3-4.6); Glomerular Filtration Rate 106.7 mL/min (90-130); Glucose 110 mg/dL (65-115); Osmolality Calculated 296 mOsm/kg (285-295); Potassium 4.2 mmol/L (3.5-5.1); Sodium 143 mmol/L (136-145); Thyroid Stimulating Hormone 1.24 uIU/mL (0.27-4.20); Total Bilirubin 0.2 mg/dL (0.15-1.2)
[2025-03-14] MEDS: acetaminophen 325 mg Tablet 650 MG PO ×3 (08:55→19:58)
[2025-03-14] MEDS: hyDROXYzine 25 mg Capsule 100 MG PO ×2 (10:07→20:00)
[2025-03-14] MEDS: benzocaine 20% 7 gm 1 APPLIC MUCOUS MEM (10:56)
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
[2025-03-14 14:00] VITALS: BP 104/73; PULSE 75; RESP 20; TEMP 36.6; O2SAT 97
[2025-03-14] MEDS: OLANZapine 5 mg ODT PO (14:33)
--- NOTE | 2025-03-14 18:01 | PC.NURSE ---
Pt. had asked if she could talk to signee. Signee was doing an admission and informed pt. she would have to wait a few min. Pt. then decided to take a shower. While in the shower she told her sitter she fell. No injuries noted.
[2025-03-14 18:08] VITALS: BP 139/85; PULSE 76; RESP 14; TEMP 37.2; O2SAT 97
[2025-03-14] MEDS: prazosin 1 mg Capsule 2 MG PO (20:00)
[2025-03-14] MEDS: lithium carbonate 150 mg Capsule 450 MG PO (20:02)
[2025-03-14 21:10] VITALS: BP 122/83; PULSE 80; RESP 18; TEMP 37.1; O2SAT 96
--- NOTE | 2025-03-14 22:40 | PC.NURSE ---
Addendum entered by Ema Poole RN 03/14/25 22:42: Ammended note from 1999 Original Note: PSA reported to this RN that patient had intentionally rolled off bed. She stated she did not see if she hit her head. Vital signs obtained. Neuro checks WNL. Patinent is oriented times 4. Speech is clear and appropriate. Patient NICHOLAS without difficulty. Patient reports mild headache. Given Tylenol for this. Patient with recent intentional fall just prior to change of shift. Had reviewed fall precautions with patient at 1900. Reinforced fall precaution with patient and to ask for stand by assist with ambulation to bathroom. Sitter remains at bedside. Physician notified.
[2025-03-15 06:00] VITALS: BP 109/73; PULSE 86; RESP 16; TEMP 36.5; O2SAT 98
[2025-03-15] MEDS: lithium carbonate 150 mg Capsule 300 MG PO (07:41)
[2025-03-15] MEDS: sertraline 100 mg Tablet 200 MG PO (07:42)
[2025-03-15] MEDS: pantoprazole DR 40 mg Tablet PO (07:42)
[2025-03-15] MEDS: metformin 500 mg Tablet PO ×2 (07:42→17:08)
[2025-03-15] MEDS: OXcarbazepine 300 mg Tablet PO ×2 (07:43→19:37)
[2025-03-15] MEDS: neomycin-poly-bacitracin oint 28 gm 1 APPLIC TOPICAL ×2 (08:39→17:08)
[2025-03-15] MEDS: acetaminophen 325 mg Tablet 650 MG PO ×2 (09:16→19:35)
[2025-03-15] MEDS: loperamide 2 mg Capsule PO (09:16)
[2025-03-15 09:35] LABS: Bilirubin Urine Negative (Negative); Blood Urine Negative (Negative); Glucose Urine UA Negative (Normal); Ketones Urine Negative (Negative); Leukocyte Esterase Urine Trace (Negative); Nitrate Urine Negative (Negative); Protein Urine Negative (Negative); Specific Gravity, Urine 1.009 (1.005-1.030); Urine Appearance Clear (CLEAR); Urine Color Yellow (Yellow); Urobilinogen Urine 0.2 mg/dL (Negative); pH Urine 6.5 (5-7)
[2025-03-15 09:37] LABS: Add Urine Microscopic? YES; Bacteria Urine None Seen /hpf; Hyaline Casts Urine 0-4 /lpf; RBC Urine 0-2 /hpf (0-2); Squamous Epithelial Cell Urine 0-5 /hpf (0-5)
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
[2025-03-15] MEDS: OXcarbazepine 300 mg Tablet 150 MG PO (10:32)
[2025-03-15 14:00] VITALS: BP 118/78; PULSE 85; RESP 18; TEMP 36.7; O2SAT 97
[2025-03-15] MEDS: diphenhydrAMINE 50 mg/mL SDV 1mL IM (17:47)
[2025-03-15] MEDS: LORazepam 2 mg Tablet PO (17:48)
[2025-03-15] MEDS: LORazepam 2 mg/mL INJ 1 mL IM (17:48)
[2025-03-15 17:58] VITALS: BP 117/80; PULSE 98; RESP 20; TEMP 37.1; O2SAT 96
--- NOTE | 2025-03-15 18:00 | PC.ADMIT ---
[email or web address] [facility] Admission Note: The patient,Yari Pollock,19 y/o, was given written information regarding hospital policies, unit procedures and contact persons. Patient's smoking status: . Vital Signs - 8 hr 03/15/25 14:00 03/15/25 17:58 Temperature 98.1 F 98.7 F Pulse Rate 85 98 Respiratory Rate 18 20 H Blood Pressure 118/78 117/80 Pulse Oximetry 97 96 Pt.'s mom called and reported that pt. was not doing well. Rodneyee looked at pt.'s room and and pt. had her door almost all the way closed. Signee sent JANITORIAL ACCOUNT MANAGER to pt. room while still on the phone with the mother and pt. was trying to strangler herself with her shirt when it was removed she then started scratching her skin and staff had to stop her from doing this. Staff talked to pt. for while and then went for a walk with her. Then shortly there after pt. started to self harm and again. B-52 inj was given. House sup present on the unit as well as logging crew supervisor. Dr. Madrid informed. JANITORIAL ACCOUNT MANAGER is currently with pt. Pt. is still upset, but not self harming at this time.
[2025-03-15 18:42] VITALS: BP 112/72; PULSE 90; RESP 18; TEMP 36.9; O2SAT 95
--- NOTE | 2025-03-15 18:49 | PC.NURSE ---
Behavior Pt walking in hallway w/ two CNAs in dayroom when pt started to kick the door. The staff walked the pt up the perez. This RN relieved one of the WORKSHOP MANAGER staff. While this RN and the WORKSHOP MANAGER were holding the pts hands to prevent self harm, the pt stated I am about to flip the heck out, I want to do something bad . The pt then started to pull away from us. Staff in the nurses station called a code ten and the decision was made to take the pt to seclusion. On the way to walk the pt to seclusion, the pt attempted to drop to the floor, the staff catch the pt and carried her mcc up the perez while some more staff pulled the restraint bed to the hallway. The pt was transferred to the restraint bed w/ minimal issue. The restraint bed w/ the pt in it were rolled into the seclusion room. A one to one sitter was initiated and vital signs were performed. Appropriate parties were notified. The pt is laying in the restrain bed, calm w/ the sitter present. RR even and unlabored.
[2025-03-15] MEDS: prazosin 1 mg Capsule 2 MG PO (19:34)
[2025-03-15] MEDS: hyDROXYzine 25 mg Capsule 100 MG PO (19:36)
[2025-03-15] MEDS: lithium carbonate 150 mg Capsule 450 MG PO (19:37)
[2025-03-15 20:35] VITALS: BP 104/67; PULSE 101; RESP 21; TEMP 36.8; O2SAT 93
[2025-03-16 06:00] VITALS: BP 112/67; PULSE 99; RESP 19; TEMP 36.4; O2SAT 95
--- NOTE | 2025-03-16 08:28 | P.NPUDS_ITS ---
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 appeared intact and memory was somewhat reliable but no more formally tested. She is alert and oriented to person and place. Insight and judgment are limited versus impaired and impulse control is impaired. Intelligence appeared commensurate with mild cognitive impairment. Discharge Data Studies Completed and Pending: Completed Studies During Hospitalization Category Date Time Status CT head wo con* [id number] Stat Cat Scan 03/12/25 13:07 Completed XR ankle RT min 3 V* [id number] Routine Exams 03/12/25 13:56 Completed XR foot RT min 3V * [id number] Routine Exams 03/12/25 13:56 Completed Radiology Impressions Head CT 03/12/25 13:07 IMPRESSION: Negative head CT. Ankle X-Ray 03/12/25 13:56 IMPRESSION: No fracture or dislocation. Foot X-Ray 03/12/25 13:56 IMPRESSION: No fracture or dislocation. Laboratory Results WBC 7.03 10^3/uL (4.5 -13.0) 03/14/25 07:38 RBC 4.70 10^6/uL (3.8 5-5.65) 03/14/25 07:38 Hgb 13.30 g/dL (12.4- 14.8) 03/14/25 07:38 Hct 42.5 % (36-47) 03/14/25 07:38 MCV 90.4 fl (85-98) 03/14/25 07:38 MCH 28.3 pg (27-33) 03/14/25 07:38 MCHC 31.3 g/dL (30-55) 03/14/25 07:38 RDW 13.2 % (12.1-15.1 ) 03/14/25 07:38 Plt Count 263 10^3/cmm (157 -399) 03/14/25 07:38 MPV 10.3 fL (7.4-10.4 ) 03/14/25 07:38 Neut % (Auto) 53.6 % 03/14/25 07:38 Lymph % (Auto) 34.1 % 03/14/25 07:38 [place] % (Auto) 9.0 % 03/14/25 07:38 Eos % (Auto) 2.0 % 03/14/25 07:38 Baso % (Auto) 0.9 % 03/14/25 07:38 Neut # (Auto) 3.77 10^3/uL (1.8 -8.0) 03/14/25 07:38 Lymph # (Auto) 2.4 10^3/uL (1.5- 6.5) 03/14/25 07:38 [place] # (Auto) 0.6 10^3/uL (0.2- 0.9) 03/14/25 07:38 Eos # (Auto) 0.1 10^3/uL (0.0- 0.8) 03/14/25 07:38 Baso # (Auto) 0.1 10^3/uL (0.0- 0.1) 03/14/25 07:38 Nucleated RBC % (a uto) 0 % 03/14/25 07:38 Nucleated RBCs # 0.0 /100WBC 03/14/25 07:38 Sodium 143 mmol/L (136-1 45) 03/14/25 07:38 Potassium 4.2 mmol/L (3.5-5 .1) 03/14/25 07:38 Chloride 104 mmol/L (98-10 7) 03/14/25 07:38 Carbon Dioxide 24 mmol/L (22-29) 03/14/25 07:38 Anion Gap 19.2 (5-19) H 03/14/25 07:38 BUN 11 mg/dL (6-20) 03/14/25 07:38 Creatinine 0.7 mg/dL (0.5-0. 9) 03/14/25 07:38 GFR Calculation 106.7 mL/min (90- 130) 03/14/25 07:38 Glucose 110 mg/dL (65-115 ) 03/14/25 07:38 POC Glucose 101 mg/dL (70-110 ) 02/27/25 12:05 Calculated Osmolal ity 296 mOsm/kg (285- 295) H 03/14/25 07:38 Calcium 9.7 mg/dL (8.5-10 .5) 03/14/25 07:38 Total Bilirubin 0.2 mg/dL (0.15-1 .2) 03/14/25 07:38 AST 28 U/L (0-32) 03/14/25 07:38 ALT 50 U/L (0-33) H 03/14/25 07:38 Alkaline Phosphata se 122 U/L (35-105) H 03/14/25 07:38 Total Protein 7.0 g/dL (6.6-8.7 ) 03/14/25 07:38 Albumin 4.4 g/dL (3.5-5.2 ) 03/14/25 07:38 Globulin 2.6 g/dL (1.3-4.6 ) 03/14/25 07:38 TSH 1.24 uIU/mL (0.27 -4.20) 03/14/25 07:38 HCG, Qual Negative (Negati ve) 02/25/25 18:06 Urine Color Yellow (Yellow) 03/15/25 09:20 Urine Appearance Clear (CLEAR) 03/15/25 09:20 Urine pH 6.5 (5-7) 03/15/25 09:20 Ur Specific Gravit y 1.009 (1.005-1.0 30) 03/15/25 09:20 Urine Protein Negative (Negati ve) 03/15/25 09:20 Urine Glucose (UA) Negative (Normal ) 03/15/25 09:20 Urine Ketones Negative (Negati ve) 03/15/25 09:20 Urine Blood Negative (Negati ve) 03/15/25 09:20 Urine Nitrate Negative (Negati ve) 03/15/25 09:20 Urine Bilirubin Negative (Negati ve) 03/15/25 09:20 Urine Urobilinogen 0.2 mg/dL (Negati ve) 03/15/25 09:20 Ur Leukocyte Sushila ase Trace (Negative) A 03/15/25 09:20 Urine RBC 0-2 /hpf (0-2) 03/15/25 09:20 Urine WBC 6-10 /hpf (0-5) 03/15/25 09:20 Ur Squamous Epith Cells 0-5 /hpf (0-5) 03/15/25 09:20 Amorphous Sediment Not Reportable 03/15/25 09:20 Urine Bacteria None seen /hpf (N ONE) 03/15/25 09:20 Hyaline Casts 0-4 /lpf H 03/15/25 09:20 Salicylates < 0.3 mg/dL (3-10 ) L 02/25/25 17:35 Urine Opiates Scre en Negative ng/mL (N egative) 02/25/25 18:06 Acetaminophen < 5.0 ug/mL (10-3 0) L 02/25/25 17:35 Ur Barbiturates Sc reen Negative ng/mL (N egative) 02/25/25 18:06 Ur Phencyclidine S crn Negative ng/mL (N egative) 02/25/25 18:06 Ur Amphetamines Sc reen Negative ng/mL (N egative) 02/25/25 18:06 U Benzodiazepines Scrn Negative ng/mL (N egative) 02/25/25 18:06 [place] 0.4 mmol/L (0.6-1 .2) L 03/14/25 07:38 Urine Cocaine Scre en Negative ng/mL (N egative) 02/25/25 18:06 U Marijuana (THC) Screen Negative ng/mL (N egative) 02/25/25 18:06 Ethyl Alcohol < 10 mg/dL (0-10) 02/25/25 17:35 Vitals: Last Vital Signs Temp 97.6 F 03/16/25 06:00 Pulse 99 03/16/25 06:00 Resp 19 H 03/16/25 06:00 BP 112/67 03/16/25 06:00 Pulse Ox 95 03/16/25 06:00 O2 Del Method Room Air 03/16/25 06:00 Discharge Plan Discharge Patient Disposition: Home Condition: Stable Prescriptions: New lithium carbonate 300 mg capsule 300 mg PO BID 30 Days Qty: 60 0RF sertraline 100 mg Tablet 200 mg PO DAILY 30 Days Qty: 60 0RF prazosin 1 mg Capsule 1 mg PO BEDTIME 30 Days Qty: 30 0RF oxcarbazepine 300 mg Tablet 300 mg PO 0900 30 Days Qty: 30 0RF oxcarbazepine 300 mg Tablet 600 mg PO 2100 30 Days Qty: 60 0RF Continued haloperidol decanoate [Haldol Decanoate] 50 mg/mL solution 50 mg IM .q 30 days 30 Days Qty: 1 3RF benztropine 1 mg tablet 1 mg PO BID Qty: 60 5RF guanfacine 4 mg tablet extended release 24 hr 4 mg PO DAILY Qty: 30 5RF hydroxyzine pamoate 100 mg capsule 100 mg PO TID PRN (Reason: sleep or anxiety) Qty: 90 5RF buspirone 5 mg tablet 5 mg PO TID PRN (Reason: anxiety) Qty: 90 3RF omeprazole 20 mg capsule,delayed release(DR/EC) 20 mg PO DAILY fluticasone propionate 50 mcg/actuation spray,suspension 1 spray INTRANASAL DAILY metformin 500 mg tablet 500 mg PO BID 30 Days Qty: 60 0RF Rx Instructions: WITH MEALS trazodone 50 mg tablet 50 mg PO DAILY PRN (Reason: sleep) 30 Days Qty: 30 0RF Discontinued oxcarbazepine 600 mg tablet 600 mg PO BID Qty: 60 5RF sertraline 100 mg tablet 150 mg PO DAILY 30 Days Qty: 45 5RF Discharge Orders: Discharge Order (Routine); Ordered 03/16/25 Ordered By: Andrade Madrid Referrals: [facility] [Other] Referral Note: Walk in [facility] from 8:00 am-4:30 pm Tuesday through Tuesday. Jacey Alicea PMHNP [Staff Physician, Psychiatry] - 03/22/25 1:45 pm Antonieta Bradley MD [Primary Care Provider, Family Practice] Discharge Diet: Usual diet Discharge Activity: Resume usual activity Patient Instructions: Depression, Stress (ED), Mood Disorders (DC), Opioid Safety Discharge Attestations NPU Time Spent in Discharge Care*: greater than 30 min Specific Discharge Activities: Specific discharge activities: educating patient, educating and/or supporting family/caregiver, discussing with pillowcase sewer/social workers/dc planners, documenting/other paperwork and evaluating patient/reviewing data Coding Level of Care Code Acute Code for g Fwd Diagnoses Major depressive disorder, recurrent, severe with psychotic symptoms F33.3 Borderline personality disorder in adolescent F60.3 Post-traumatic stress disorder, unspecified F43.10 Generalized anxiety disorder F41.1 Suicidal ideation R45.851
[2025-03-16] MEDS: metformin 500 mg Tablet PO (08:52)
[2025-03-16] MEDS: pantoprazole DR 40 mg Tablet PO (08:52)
[2025-03-16] MEDS: haloperidol 5 mg Tablet PO (08:52)
[2025-03-16] MEDS: sertraline 100 mg Tablet 200 MG PO (08:54)
[2025-03-16] MEDS: lithium carbonate 150 mg Capsule 300 MG PO (08:54)
[2025-03-16] MEDS: OXcarbazepine 300 mg Tablet 150 MG PO (08:54)
[2025-03-16] MEDS: neomycin-poly-bacitracin oint 28 gm 1 APPLIC TOPICAL (08:54)
[2025-03-16] MEDS: acetaminophen 325 mg Tablet 650 MG PO (09:52)
[2025-03-16 09:59] VITALS: BP 112/67; PULSE 99; RESP 19; TEMP 36.4; O2SAT 95
== END 2025-03-16 11:28 | disposition home or self-care (01) | DRG 885 ==
LOC: ER 17:16 → NP 17:56
PROVIDERS: Admitting Provider Psychiatry & Neurology Psychiatry; Emergency Provider Emergency Medicine; PCP Family Medicine; Visit Provider Psychiatry & Neurology Psychiatry
DX: F33.3 Major depressive disorder, recurrent, severe with psychotic symptoms (principal); R45.851 Suicidal ideations; Z68.41 Body mass index [BMI] 40.0-44.9, adult; F41.1 Generalized anxiety disorder; S51.812A Laceration without foreign body of left forearm, initial encounter; S51.811A Laceration without foreign body of right forearm, initial encounter; S71.112A Laceration without foreign body, left thigh, initial encounter; S71.111A Laceration without foreign body, right thigh, initial encounter; X78.9XXA Intentional self-harm by unspecified sharp object, initial encounter; Z81.8 Family history of other mental and behavioral disorders; Z91.51 Personal history of suicidal behavior; E66.01 Morbid (severe) obesity due to excess calories; Z62.810 Personal history of physical and sexual abuse in childhood; F43.10 Post-traumatic stress disorder, unspecified; F60.3 Borderline personality disorder; R41.83 Borderline intellectual functioning
CPT/HCPCS: 36415; 36416; 70450; 73610; 73630; 80053; 80178; 80306; 80307; 81001; 81025; 82962; 84443; 85025; 96372; 97150; 97165; 99285; J1200; J1630; J2060; J9999; Q0163

== ENCOUNTER 2025-03-16 21:59 | Inpatient (IN) | payer MEDICAID, SELFPAY ==
[2025-03-16 21:59] VITALS: BP 199/134; PULSE 97; RESP 16; TEMP 37.1; O2SAT 93
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
[2025-03-16] MEDS: OLANZapine 5 mg ODT PO (22:35)
--- NOTE | 2025-03-16 22:35 | ECG_ITS ---
[facility] 2025-[facility]16 Pat Name: Yari Pollock Department: Room: Gender: Female [employer] Database Administrator: : 2005 Requested By: Jason Dubois Order Number: [id number] Lata MD: Margaret Lynn M.D. Measurements Intervals [place] Rate: 96 P: 55 MA: 132 QRS: 56 QRSD: 87 T: 43 QT: 344 QTc: 437 Interpretive Statements SINUS RHYTHM Compared to ECG 01/23/2021 21:25:53 No significant changes Electronically Signed On 03-17-2025 21:36:14 CDT by Margaret Lynn M.D. [email or web address]
[2025-03-16 22:41] LABS: Basophils # 0.1 10^3/uL (0.0-0.1); Basophils % 0.6 %; Eosinophils # 0.1 10^3/uL (0.0-0.8); Eosinophils % 1.1 %; Lymphocytes # 2.9 10^3/uL (1.5-6.5); Lymphocytes % 32.7 %; Mean Corpuscular HGB Conc 32.4 g/dL (30-55); Mean Corpuscular Hemoglobin 27.7 pg (27-33); Mean Corpuscular Volume 85.6 fl (85-98); Mean Platelet Volume 9.9 fL (7.4-10.4); Monocytes # 0.8 10^3/uL (0.2-0.9); Monocytes % 9.4 %; Neutrophils # 4.91 10^3/uL (1.8-8.0); Neutrophils % 55.9 %; Nucleated Red Blood Cells % 0 %; Platelet Count 269 10^3/cmm (157-399); Red Blood Count 4.44 10^6/uL (3.85-5.65); Red Cell Distribution Width 13.4 % (12.1-15.1); White Blood Count 8.79 10^3/uL (4.5-13.0)
[2025-03-16] MEDS: ketamine 100 mg/mL Inj 5 mL IM (22:52)
[2025-03-16 23:02] LABS: Bilirubin Urine Negative (Negative); Blood Urine Negative (Negative); Glucose Urine UA Negative (Normal); Ketones Urine Trace (Negative); Leukocyte Esterase Urine 1+ (Negative); Nitrate Urine Negative (Negative); Protein Urine Negative (Negative); Specific Gravity, Urine 1.025 (1.005-1.030); Urine Appearance Clear (CLEAR); Urine Color Yellow (Yellow)
[2025-03-16 23:03] LABS: Acetaminophen < 5.0 ug/mL (10-30); Alanine Aminotransferase 70 U/L (0-33); Albumin Level 4.5 g/dL (3.5-5.2); Alkaline Phosphatase 162 U/L (35-105); Anion Gap 17.1 (5-19); Aspartate Amino Transferase 53 U/L (0-32); Blood Urea Nitrogen 10 mg/dL (6-20); Carbon Dioxide 23 mmol/L (22-29); Chloride 105 mmol/L (98-107); Globulin 2.6 g/dL (1.3-4.6); Glomerular Filtration Rate 127.5 mL/min (90-130); Glucose 102 mg/dL (65-115); Osmolality Calculated 291 mOsm/kg (285-295); Potassium 4.1 mmol/L (3.5-5.1); Salicylate < 0.3 mg/dL (3-10); Sodium 141 mmol/L (136-145); Total Bilirubin 0.2 mg/dL (0.15-1.2); Total Protein 7.1 g/dL (6.6-8.7)
[2025-03-16 23:07] VITALS: BP 127/68; PULSE 99; RESP 16; O2SAT 97
[2025-03-16 23:07] LABS: Add Urine Microscopic? YES; Bacteria Urine 3+ /hpf; Hyaline Casts Urine 0-4 /lpf; WBC Urine 21-50 /hpf (0-5)
[2025-03-16 23:10] LABS: Add Urine Culture? Yes; Amphetamines Screen Urine Negative (Negative); Barbiturates Screen Urine Negative (Negative); Benzodiazepines Screen Urine Positive (Negative); Cocaine Screen Urine Negative (Negative); Opiate Screen Urine Negative (Negative); PCP Screen Urine Negative (Negative); THC Screen Urine Negative (Negative)
[2025-03-17] MEDS: metoclopramide 10 mg Tablet 5 MG PO ×2 (00:22→20:28)
[2025-03-17 00:37] VITALS: BP 140/75; PULSE 100; RESP 18; TEMP 37.1; O2SAT 97
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
[2025-03-17 06:00] VITALS: BP 138/92; PULSE 99; RESP 16; O2SAT 97; BMI 42.8
[2025-03-17] MEDS: haloperidol 5 mg Tablet PO (07:05)
[2025-03-17] MEDS: hyDROXYzine 25 mg Capsule 50 MG PO (07:05)
--- NOTE | 2025-03-17 08:51 | W.PM.NPUH&PS ---
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 individual with a very similar pattern which seem to escalate both of them. We discussed given the time that she has been hospitalized, discharging her to home to see if there is any way she can be managed there as this seems to be no benefit to her being in the hospital which is consistent with borderline personality disorder having rare instances of a psychiatric admission being the best plan and less were talking about safety concerns. Mother was in agreement so she was discharged. During that admission she had modest improvement. She was able to contract for safety outside of the hospital prior to discharge. But we discussed with mother the likelihood of continued self-injurious behavior which she expected. She worked with the social work team on outpatient resources and follow-ups' During hospitalization she had routine laboratory studies which were within normal limits except for a few outliers. Additionally had a general medical evaluation which is also within normal limits and revealed no new acute processes. Discharge summary: At the time of discharge, she was absent lethality and psychosis. Mood and anxiety were well managed. Patient endorsed a plan to avoid all drugs of abuse and follow-up with the aftercare recommendations of the treatment team. Patient was evaluated and deemed to be absent credible lethality, and had achieved the maximum benefit from an inpatient hospitalization, so was discharged. Meds NPU Home Medications ?Medication ?Instructions ?Recorded ?Confirmed ?Last Taken ?Type fluticasone propionate 50 1 spray intranasal DAILY 10/29/24 03/17/25 Unknown History mcg/actuation nasal spray,suspension omeprazole 20 mg capsule,delayed 20 mg PO DAILY 10/29/24 03/17/25 1 Day Ago History release ~02/24/25 benztropine 1 mg tablet 1 mg PO BID #60 tabs 12/14/24 03/17/25 1 Day Ago Rx ~02/24/25 guanfacine 4 mg tablet,extended 4 mg PO DAILY #30 tabs 12/14/24 03/17/25 1 Day Ago Rx release 24 hr ~02/24/25 haloperidol decanoate 50 mg/mL 50 mg IM .q 30 days 30 days #1 mL 12/14/24 03/17/25 Unknown Rx intramuscular solution (Haldol Decanoate) hydroxyzine pamoate 100 mg capsule 100 mg PO TID PRN sleep or anxiety 12/14/24 03/17/25 1 Day Ago Rx #90 caps ~02/24/25 buspirone 5 mg tablet 5 mg PO TID PRN anxiety #90 tabs 02/07/25 03/17/25 1 Day Ago Rx ~02/24/25 lithium carbonate 300 mg capsule 300 mg PO BID 30 days #60 caps 03/08/25 03/17/25 Unknown Rx metformin 500 mg tablet 500 mg PO BID 30 days #60 tabs 03/08/25 03/17/25 Unknown Rx oxcarbazepine 300 mg tablet 300 mg PO 0900 30 days #30 tabs 03/08/25 03/17/25 Unknown Rx oxcarbazepine 300 mg tablet 600 mg (2 x 300 mg) PO 2100 30 03/08/25 03/17/25 Unknown Rx days #60 tabs prazosin 1 mg capsule 1 mg PO BEDTIME 30 days #30 caps 03/08/25 03/17/25 Unknown Rx sertraline 100 mg tablet 200 mg (2 x 100 mg) PO DAILY 30 03/08/25 03/17/25 Unknown Rx days #60 tabs trazodone 50 mg tablet 50 mg PO DAILY PRN sleep 30 days 03/08/25 03/17/25 03/16/25 Rx #30 tabs Allergies Allergy/AdvReac Type Severity Reaction Status Date / Time divalproex sodium (From Allergy makes me Verified 01/29/21 07:50 Depakote) stay awake for days at a time, no appetite ondansetron (From Zofran) Allergy hard time Verified 01/29/21 07:50 breathing PFSH NPU PFSH: Medical History Psychiatric care Mental Status Exam MSE Comments: This is an obese versus obese white female in hospital scrubs with limited grooming and eye contact. No abnormal movements except for mild psychomotor retardation. There were no new scratch griffin appreciated in left wrist. Mood was described as okay. Her affect was restricted in range. Thought process was linear, but superficial. Thought content: Patient endorsed having suicidal ideation, and denied homicidal ideation, there were no delusions reported or noted, she denied any auditory or visual hallucinations. Attention and concentration appeared intact and memory was somewhat reliable but no more formally tested. She is alert and oriented to person and place. Insight and judgment are limited versus impaired and impulse control is impaired. Intelligence appeared commensurate with mild cognitive impairment. Vitals/I&O/Wt Last Vital Signs Temp 98.7 F 03/17/25 00:37 Pulse 99 03/17/25 06:00 Resp 16 03/17/25 06:00 BP 138/92 03/17/25 06:00 Pulse Ox 97 03/17/25 06:00 O2 Del Method Room Air 03/17/25 00:41 03/16/25 03/17/25 03/17/25 22:59 06:59 14:59 Intake Total 0 / 0 Balance 0 / 0 Weight last 48 hrs Weight 96.252 kg Data NPU 03/16/25 22:23 03/16/25 22:23 A&P Assessment and plan (1) Major depressive disorder, recurrent, severe with psychotic symptoms: (2) Borderline personality disorder in adolescent: (3) Post-traumatic stress disorder, unspecified: (4) Generalized anxiety disorder: (5) Suicidal ideation: Plan This is a 19-year-old white female with a long history of mental health challenges with dozens of inpatient hospitalizations and past outpatient services who was last hospitalized in October of this year prior to the hospitalization at the end of January that ended yesterday 03/16/2025. Who presented again with reports of suicidal thinking and thoughts to self-harm. She was reporting inability to manage her situation at home and seemed unchanged from previous interactions. We will need to either discharge her in the next couple of days or look towards getting her into an ISL. She has a guardian which is her mother and she endorsed symptoms consistent with borderline personality disorder 1. Continue current medication from discharge yesterday. 2. Encourage individual, group and milieu therapy. Patient would benefit from outpatient DBT. 3. Continue every 15 minute checks for safety. 4. Will look at possible referrals to ISL but will hopefully make this a quick therapeutic admission with discharge as soon as possible. Likelihood is that no one can take her immediately and this truly seems like baseline behavior. PDMP PDMP Reviewed: Not Reviewed Involuntary Hold Information Hold Status: Legal Status: Active Guardianship 96 Hour Hold: 96 Hour Involuntary Admission: Yes Other Hold: Hold End Date: 11/02/24 Attestations NPU Medical Necessity Statement*: Inpatient hospitalization is medically necessary and the clinically appropriate intervention at this time. We will monitor medications and make changes as indicated. She will be in the hospital for over 2 midnights. Likely length of stay 4 to 6 days. Coding Level of Care Code Acute Code for Chg Fwd Diagnoses Major depressive disorder, recurrent, severe with psychotic symptoms F33.3 Borderline personality disorder in adolescent F60.3 Post-traumatic stress disorder, unspecified F43.10 Generalized anxiety disorder F41.1 Suicidal ideation R45.851
[2025-03-17] MEDS: sertraline 100 mg Tablet 200 MG PO (09:52)
[2025-03-17] MEDS: pantoprazole DR 40 mg Tablet PO (09:53)
[2025-03-17] MEDS: lithium carbonate 300 mg Capsule PO ×2 (11:01→16:57)
[2025-03-17] MEDS: ziprasidone 20 mg/mL SDV IM (11:02)
[2025-03-17] MEDS: diphenhydrAMINE 50 mg/mL SDV 1mL IM ×2 (11:02→19:50)
[2025-03-17] MEDS: LORazepam 1 MG/0.5 ML injection 2 MG IM ×2 (11:03→20:31)
[2025-03-17] MEDS: naltrexone hcl 50 mg Tablet PO (12:39)
--- NOTE | 2025-03-17 13:00 | PC.NURSE ---
Pt.'s mother/guardian called today after pt. called her starting an augment and upsetting the mother. Mother stated she did not want pt. to have phone privileges for at least the rest of the day.
[2025-03-17 14:00] VITALS: BP 121/80; PULSE 69; RESP 17; TEMP 36.7; O2SAT 98
[2025-03-17] MEDS: benztropine 1 mg Tablet PO (16:57)
[2025-03-17] MEDS: metformin 500 mg Tablet PO (16:57)
[2025-03-17] MEDS: BuSPIRONE 10 mg Tablet 5 MG PO (16:57)
[2025-03-17] MEDS: blistex lip oint 7 gm Tube 1 APPLIC TOPICAL (17:23)
[2025-03-17] MEDS: haloperidol inj 5 mg/mL INJ 1 mL IM (19:50)
[2025-03-17] MEDS: OXcarbazepine 300 mg Tablet 600 MG PO (19:53)
[2025-03-17] MEDS: prazosin 1 mg Capsule PO (20:46)
[2025-03-17 20:54] VITALS: BP 124/85; PULSE 90; RESP 18; TEMP 36.7; O2SAT 97
--- NOTE | 2025-03-17 23:08 | PC.NURSE ---
03/17/[id number] Kiera notified this nurse that Yari was attempting self harm by picking at the wounds from prior self harm scrapes. She was not able to be redirected by staff, nor nsg initially. Nsg advised her that per doctor's orders, we move to medication assist. She voices that she's unhappy about it, but stands et walks with this nurse to nursing station. She sits somewhat calmly nearby while staff engages her et medications are drawn up. Security arrives for standby. She walks to her room for administration without issue. She allows injections via CLIENT EXPERIENCE SPECIALIST et RN, et requests CLIENT EXPERIENCE SPECIALIST to come back et talk with her. This nurse advises that will be just fine et will return to her side shortly. She sits on her bed for a moment, but chooses to walk through halls with her sitter et talk. Yari advises this nurse upon rechecks thereafter, that she is feeling better. Nursing continues to monitor for needs et changes.
[2025-03-18 06:00] VITALS: RESP 16
[2025-03-18] MEDS: lithium carbonate 300 mg Capsule PO ×2 (08:08→18:55)
[2025-03-18] MEDS: sertraline 100 mg Tablet 200 MG PO (08:08)
[2025-03-18] MEDS: metformin 500 mg Tablet PO ×2 (08:08→18:55)
[2025-03-18] MEDS: pantoprazole DR 40 mg Tablet PO (08:08)
[2025-03-18] MEDS: benztropine 1 mg Tablet PO ×2 (08:08→18:55)
[2025-03-18] MEDS: naltrexone hcl 50 mg Tablet PO (08:08)
[2025-03-18] MEDS: OXcarbazepine 300 mg Tablet PO (08:08)
[2025-03-18 08:50] VITALS: BP 131/86; PULSE 117; RESP 16; TEMP 36.8; O2SAT 96
[2025-03-18] MEDS: GUANFACINE 4 MG 4 EACH PO (09:42)
[2025-03-18] MEDS: metoclopramide 10 mg Tablet 5 MG PO (10:04)
[2025-03-18] MEDS: hyDROXYzine 25 mg Capsule 100 MG PO ×2 (11:29→20:17)
[2025-03-18] MEDS: acetaminophen 325 mg Tablet 650 MG PO (13:50)
[2025-03-18 14:00] VITALS: BP 129/99; PULSE 99; RESP 16; TEMP 36.9; O2SAT 97
--- NOTE | 2025-03-18 14:35 | P.NPUPN_ITS ---
Subjective NPU 2 Subjective: Patient presented today reporting that she was having some suicidal thoughts. I was asking to have her shirt back because she was cold and wanted to have her blankets. She was initially on one-to-one and we discussed the importance of her being able to function off of one-to-one if she wanted those kind of privileges which involves some level of trust. She agreed to a trial off of one-to-one and we discussed the risks, benefits and alternatives of a trial of Klonopin and she understood and agreed to proceed as is documented in this note. Mental Status Exam 2 MSE Comments: This is an obese versus obese white female in hospital scrubs with limited grooming and eye contact. No abnormal movements except for mild psychomotor retardation. There were no new scratch griffin appreciated in left wrist. Mood was described as okay. Her affect was restricted in range. Thought process was linear, but superficial. Thought content: Patient endorsed having suicidal ideation, and denied homicidal ideation, there were no delusions reported or noted, she denied any auditory or visual hallucinations. Attention and concentration appeared intact and memory was somewhat reliable but no more formally tested. She is alert and oriented to person and place. Insight and judgment are limited versus impaired and impulse control is impaired. Intelligence appeared commensurate with mild cognitive impairment. Vitals/I&O/Wt Last Vital Signs Temp 98.4 F 03/18/25 14:00 Pulse 99 03/18/25 14:00 Resp 16 03/18/25 14:00 BP 129/99 03/18/25 14:00 Pulse Ox 97 03/18/25 14:00 O2 Del Method Room Air 03/18/25 14:00 Weight last 48 hrs Weight 96.252 kg Data NPU 03/16/25 22:23 03/16/25 22:23 Micro: Microbiology 03/16/25 22:05 Urine Culture - Final Urine,Clean Catch Microbiology 03/16/25 22:05 Urine,Clean Catch Urine Culture - Final A&P Assessment and plan (1) Major depressive disorder, recurrent, severe with psychotic symptoms: (2) Borderline personality disorder in adolescent: (3) Post-traumatic stress disorder, unspecified: (4) Generalized anxiety disorder: (5) Suicidal ideation: Plan This is a 19-year-old white female with a long history of mental health challenges with dozens of inpatient hospitalizations and past outpatient services who was last hospitalized in October of this year prior to the hospitalization at the end of January that ended yesterday 03/16/2025. Who presented again with reports of suicidal thinking and thoughts to self-harm. She was reporting inability to manage her situation at home and seemed unchanged from previous interactions. We will need to either discharge her in the next couple of days or look towards getting her into an ISL. She has a guardian which is her mother and she endorsed symptoms consistent with borderline personality disorder 1. Continue current medication from discharge 03/16/2025. Start Klonopin 0.5 mg p.o. twice daily for anxiety. 2. Encourage individual, group and milieu therapy. Patient would benefit from outpatient DBT. 3. Return to every 15 minute checks for safety as she had been placed on one-to-one overnight. 4. Will look at possible referrals to ISL but will hopefully make this a quick therapeutic admission with discharge as soon as possible. Likelihood is that no one can take her immediately and this truly seems like baseline behavior. PDMP PDMP Reviewed: Not Reviewed Involuntary Hold Information 2 Hold Status: Legal Status: Active Guardianship 96 Hour Hold: 96 Hour Involuntary Admission: Yes Other Hold: Hold End Date: 11/02/24 Attestations NPU 2 Medical Necessity Statement*: Inpatient hospitalization is medically necessary and the clinically appropriate intervention at this time. We will monitor medications and make changes as indicated. Likely length of stay 4 to 6 days. Coding Level of Care Code Acute Code for Chg Fwd Diagnoses Major depressive disorder, recurrent, severe with psychotic symptoms F33.3 Borderline personality disorder in adolescent F60.3 Post-traumatic stress disorder, unspecified F43.10 Generalized anxiety disorder F41.1 Suicidal ideation R45.851
[2025-03-18] MEDS: haloperidol 5 mg Tablet PO ×2 (16:39→21:07)
[2025-03-18] MEDS: CLONazepam 0.5 mg Tablet PO (18:55)
[2025-03-18 20:12] VITALS: BP 130/94; PULSE 82; RESP 18; TEMP 36.9; O2SAT 96
[2025-03-18] MEDS: OXcarbazepine 300 mg Tablet 600 MG PO (20:17)
--- NOTE | 2025-03-18 20:17 | PC.NURSE ---
PATIENT NOTED WITH INCREASED ANXIETY, VISTARIL 100MG AND TRAZODONE 50MG GIVEN WITH BEDTIME MEDS.
[2025-03-18] MEDS: prazosin 1 mg Capsule PO (20:18)
[2025-03-18] MEDS: trazodone 50 mg Tablet PO ×2 (20:19→21:07)
--- NOTE | 2025-03-18 21:07 | PC.NURSE ---
PATIENT CAME OUT OF SHOWER, HIDING A SHAMPOO BOTTLE LID IN HER HAND. EDIS CALABRESE CAUGHT PATIENT TRYING TO USE IT TO CUT SELF AND TOOK IT AWAY FROM PATIENT. PATIENT ALSO HAD THE REST OF THE LID IN HER POCKET AND TOLD THIS NURSE ABOUT IT THE SURRENDERED THE ITEM TO THIS NURSE WILLINGLY. PATIENT WAS THEN GIVEN AN ADDITIONAL TRAZODONE 50MG WELL A HALDOL 5MG FOR SLEEP AND VOICES . DR HDZ NOTIFIED.
[2025-03-19 06:00] VITALS: RESP 16
--- NOTE | 2025-03-19 06:27 | P.NPUPN_ITS ---
Subjective NPU 2 Subjective: Patient presented today reporting that she is doing poorly and needs to be back on one-to-one. She continues to have behaviors that she reports are an indication of her suicidal ideation but represent nothing suicidal. She has had no behaviors that constitute a serious risk to her health. At times the suppose it self-injurious behavior is and even visible on her skin. We continue to discussed with her the fact that it appears her reporting suicidal ideation as a way for her to report that she feels really really bad because there are no indications of suicidal intent however she continues to come and significant attention from staff and we discussed trying to maintain her without a one-to-one. She denied any side effects to the medication and we continue to increase doses in hopes of getting some effect. She is now on Klonopin 0.5 mg p.o. 3 times daily as needed and attempt to address the anxiety that she points to is the reason why she has these moments. Mental Status Exam 2 MSE Comments: This is an obese versus obese white female in hospital scrubs with limited grooming and eye contact. No abnormal movements except for mild psychomotor retardation. There were no new scratch griffin appreciated in left wrist. Mood was described as okay. Her affect was restricted in range. Thought process was linear, but superficial. Thought content: Patient endorsed having suicidal ideation, and denied homicidal ideation, there were no delusions reported or noted, she denied any auditory or visual hallucinations. Attention and concentration appeared intact and memory was somewhat reliable but no more formally tested. She is alert and oriented to person and place. Insight and judgment are limited versus impaired and impulse control is impaired. Intelligence appeared commensurate with mild cognitive impairment. Vitals/I&O/Wt Last Vital Signs Temp 98.5 F 03/18/25 20:12 Pulse 82 03/18/25 20:12 Resp 16 03/19/25 06:00 BP 130/94 03/18/25 20:12 Pulse Ox 96 03/18/25 20:12 O2 Del Method Room Air 03/18/25 14:00 Data NPU 03/16/25 22:23 03/16/25 22:23 Micro: Microbiology 03/16/25 22:05 Urine Culture - Final Urine,Clean Catch Microbiology 03/16/25 22:05 Urine,Clean Catch Urine Culture - Final A&P Assessment and plan (1) Major depressive disorder, recurrent, severe with psychotic symptoms: (2) Borderline personality disorder in adolescent: (3) Post-traumatic stress disorder, unspecified: (4) Generalized anxiety disorder: (5) Suicidal ideation: Plan This is a 19-year-old white female with a long history of mental health challenges with dozens of inpatient hospitalizations and past outpatient services who was last hospitalized in October of this year prior to the hospitalization at the end of January that ended yesterday 03/16/2025. Who presented again with reports of suicidal thinking and thoughts to self-harm. She was reporting inability to manage her situation at home and seemed unchanged from previous interactions. We will need to either discharge her in the next couple of days or look towards getting her into an IS[facility]. She has a guardian which is her mother and she endorsed symptoms consistent with borderline personality disorder 1. Continue current medication from discharge 03/16/2025. Start Klonopin 0.5 mg p.o. twice daily for anxiety. 2. Encourage individual, group and milieu therapy. Patient would benefit from outpatient DBT. 3. Return to every 15 minute checks for safety as she had been placed on one-to-one overnight. We will continue to fight to keep her off of one-to-one as she continues to do very minuscule self-harm behaviors in an attempt to get one-to-one back. We will have a conversation with mother tomorrow about how to approach this moving forward. 4. Will look at possible referrals to [facility]L but will hopefully make this a quick therapeutic admission with discharge as soon as possible. Likelihood is that no one can take her immediately and this truly seems like baseline behavior. PDMP PDMP Reviewed: Not Reviewed Involuntary Hold Information 2 Hold Status: Legal Status: Active Guardianship 96 Hour Hold: 96 Hour Involuntary Admission: Yes Other Hold: Hold End Date: 11/02/24 Attestations NPU 2 Medical Necessity Statement*: Inpatient hospitalization is medically necessary and the clinically appropriate intervention at this time. We will monitor medications and make changes as indicated. Likely length of stay 4 to 6 days. Coding Level of Care Code Acute Code for Chg Fwd Diagnoses Major depressive disorder, recurrent, severe with psychotic symptoms F33.3 Borderline personality disorder in adolescent F60.3 Post-traumatic stress disorder, unspecified F43.10 Generalized anxiety disorder F41.1 Suicidal ideation R45.859
[2025-03-19] MEDS: sertraline 100 mg Tablet 200 MG PO (07:36)
[2025-03-19] MEDS: lithium carbonate 300 mg Capsule PO ×2 (07:37→17:17)
[2025-03-19] MEDS: OXcarbazepine 300 mg Tablet PO (07:37)
[2025-03-19] MEDS: pantoprazole DR 40 mg Tablet PO (07:37)
[2025-03-19] MEDS: GUANFACINE 4 MG 4 EACH PO (07:37)
[2025-03-19] MEDS: benztropine 1 mg Tablet PO ×2 (07:37→17:17)
[2025-03-19] MEDS: naltrexone hcl 50 mg Tablet PO (07:37)
[2025-03-19] MEDS: metformin 500 mg Tablet PO ×2 (07:37→17:17)
[2025-03-19] MEDS: CLONazepam 0.5 mg Tablet PO ×2 (07:39→15:06)
[2025-03-19 08:07] VITALS: BP 128/96; PULSE 121; RESP 18; TEMP 36.7; O2SAT 97
[2025-03-19] MEDS: hyDROXYzine 25 mg Capsule 100 MG PO ×2 (09:30→19:52)
--- NOTE | 2025-03-19 09:42 | PC.NURSE ---
Pt informed ENAMEL BUFFER that she went into the bathroom and made herself throw up. A little bit later the pt came up and informed this RN that she made herself sick by purging . Charge nurse notified.
--- NOTE | 2025-03-19 09:45 | PC.NURSE ---
Pt. is going to the bathroom and sticking her finger down her throat and has vomited once by doing this. Pt. is currently sitting on the bench close to the nurses station.
--- NOTE | 2025-03-19 09:54 | PC.NURSE ---
Pt moved from the nurses station and went into the bathroom inside of her room and tried to stick her finger down her throat in attempt to throw up. This nurse quickly intervened and walked the pt back up to the bench near the nurses station to make sure she was in eye sight from the nurses station. This nurse came back into the nurses station for a brief second when this nurse noticed that the pt was trying to scratch / pick at her old scabs on her forearm. This nurse once again intervened, had the DOCUMENTATION MANAGER get the charge nurse. The pts arm was bleeding slightly from where the pt had picked at the scab, the pts arm was cleaned and the charge nurse applied a band-aid. The pt was educated on why she was not allowed to self harm and on coping skills to perform instead. The pt agreed to stop and then got up to attend group.
[2025-03-19] MEDS: LORazepam 1 MG/0.5 ML injection 2 MG IM (13:02)
[2025-03-19] MEDS: haloperidol inj 5 mg/mL INJ 1 mL IM (13:02)
[2025-03-19] MEDS: diphenhydrAMINE 50 mg/mL SDV 1mL IM (13:03)
--- NOTE | 2025-03-19 13:03 | PC.NURSE ---
Behavior: Pt upset after a phone call. Pt sat in the dayroom corner and started to pick at her hands/arm. This RN went down to talk w/ the pt about behaviors and that Dr. Madrid had given staff orders for injections this time. Pt refused the shots initially. cinder crew worker, NPU school manager, and CNAs x2 were present with pt while pt eventually agreed to have the injections given. The 2 CNAs held the pts hands while the NPU school manager gave Benadryl 50mg in the left deltoid and this RN gave Ativan 2mg IM and Haldol 5mg IM in the right deltoid. The pt received the injections w/ no issues. The pt was walked to the nurses station and given instruction to remain within eyesight. The pt is now standing near the nurses station window. RR even and unlabored.
--- NOTE | 2025-03-19 13:36 | PC.NURSE ---
Pt.'s mother called and stated pt. has called her 17 times thus far today and would like her phone privileges to be revoked for the rest of the day.
[2025-03-19 13:43] VITALS: BP 121/82; PULSE 111; RESP 18; TEMP 36.8
--- NOTE | 2025-03-19 13:58 | PC.NURSE ---
Pt. stated she found a pen cap and swallowed the cap from it. When asked why pt. stated for self harm. pt. is currently sitting on the bench by the nurses station being watched by PSA
--- NOTE | 2025-03-19 14:48 | PC.NURSE ---
Dr. lynn informed that pt. stated she swallowed a pen cap off the floor. No new orders given.
[2025-03-19] MEDS: haloperidol 5 mg Tablet PO (16:21)
[2025-03-19] MEDS: OLANZapine 5 mg ODT PO (17:17)
--- NOTE | 2025-03-19 17:27 | PC.NURSE ---
Pt. was in the dayroom and had on a sportsbra and tried choking herself with the bra. Pt. has red griffin around her neck and is currently sitting on the bench by the nurses station. Signee informed RIGGING SLINGER's and nurses to not allow her to have her bra or underwear for the duration of her stay.
--- NOTE | 2025-03-19 17:28 | PC.NURSE ---
Another pt came up to the nurses station to inform this RN that the pt was sitting crouched in the corner of the dayroom. This RN and a DROP FORGER HELPER went to the dayroom and found the pt crouching in the corner attempting to choke herself with her bra straps. This RN and DROP FORGER HELPER quickly intervened. There were red griffin on the pts throat. This RN started to walk pt back to pt room to remove her bra and underwear while the DROP FORGER HELPER notified the charge nurse. After removal of bra/underwear the pt was sat on the bench near the nurses station.
--- NOTE | 2025-03-19 18:15 | PC.NURSE ---
Pt pulled this RN aside to her room to inform me that she has been using a straw to gag herself / make herself throw up. The pt also pulled out a broken plastic spoon and said she stole it from another pts dinner tray and swallowed a bit of it. The pt is very tearful/flat affect. The pt was brought up to the nurses station to be watched while this RN and a GEOSCIENCE SPECIALIST went and thoroughly searched the pts room for anything harmful or anything that could potentially be swallowed. This RN and GEOSCIENCE SPECIALIST found a small plastic lid under the pts mattress. The environmental health manager/charge nurse/Doctor made aware of all events. Per Dr. Madrid, pt needed to be watched very closely.
[2025-03-19 19:18] VITALS: BP 124/76; PULSE 91; RESP 18; TEMP 36.4; O2SAT 96
[2025-03-19] MEDS: trazodone 50 mg Tablet PO (19:51)
[2025-03-19] MEDS: acetaminophen 325 mg Tablet 650 MG PO (19:52)
[2025-03-19] MEDS: OXcarbazepine 300 mg Tablet 600 MG PO (19:52)
[2025-03-19] MEDS: prazosin 1 mg Capsule PO (19:53)
[2025-03-20 06:00] VITALS: RESP 16
--- NOTE | 2025-03-20 08:13 | P.NPUPN_ITS ---
Subjective NPU 2 Subjective: Patient presented today reporting that she is struggling. She has been making this similar comment per staff reports and direct observation. Each day she Libys for why she should have a one-to-one from saying she will only needed for a day or so to saying she needs someone to talk to saying she does not feel safe and things of that nature. We continue to encourage her to speak to other people on the unit, to stay out of her room, to watch TV or do some activity whether it is crossword puzzle or play cards or something other than sitting around and thinking about how she would like to have a sitter and how she is having thoughts for self-harm. Her self-harm continues to be minuscule and sometimes on unappreciable. She says she does not want to add any medications and we discussed the fact that her not wanting to add medications she would mean that she is prepared to avoid the pattern that has is here in the hospital now. We discussed the risk benefits and alternatives of increasing her BuSpar for anxiety and she understood and agreed to proceed as is documented in this note. We discussed continuing the use of as needed medication when she gets overstimulated or agitated but trying to continue off of one-to-one. Mental Status Exam 2 MSE Comments: This is an obese versus obese white female in hospital scrubs with limited grooming and eye contact. No abnormal movements except for mild psychomotor retardation. There were no new scratch griffin appreciated in left wrist. Mood was described as okay. Her affect was restricted in range. Thought process was linear, but superficial. Thought content: Patient endorsed having suicidal ideation, and denied homicidal ideation, there were no delusions reported or noted, she denied any auditory or visual hallucinations. Attention and concentration appeared intact and memory was somewhat reliable but no more formally tested. She is alert and oriented to person and place. Insight and judgment are limited versus impaired and impulse control is impaired. Intelligence appeared commensurate with mild cognitive impairment. Vitals/I&O/Wt Last Vital Signs Temp 97.6 F 03/19/25 19:18 Pulse 91 03/19/25 19:18 Resp 16 03/20/25 06:00 BP 124/76 03/19/25 19:18 Pulse Ox 96 03/19/25 19:18 O2 Del Method Room Air 03/19/25 13:43 Data NPU 03/16/25 22:23 03/16/25 22:23 A&P Assessment and plan (1) Major depressive disorder, recurrent, severe with psychotic symptoms: (2) Borderline personality disorder in adolescent: (3) Post-traumatic stress disorder, unspecified: (4) Generalized anxiety disorder: (5) Suicidal ideation: Plan This is a 19-year-old white female with a long history of mental health challenges with dozens of inpatient hospitalizations and past outpatient services who was last hospitalized in October of this year prior to the hospitalization at the end of January that ended yesterday 03/16/2025. Who presented again with reports of suicidal thinking and thoughts to self-harm. She was reporting inability to manage her situation at home and seemed unchanged from previous interactions. We will need to either discharge her in the next couple of days or look towards getting her into an ISL. She has a guardian which is her mother and she endorsed symptoms consistent with borderline personality disorder 1. Continue current medication from discharge 03/16/2025. Start Klonopin 0.5 mg p.o. twice daily for anxiety. 2. Encourage individual, group and milieu therapy. Patient would benefit from outpatient DBT. 3. Return to every 15 minute checks for safety as she had been placed on one-to-one overnight. We will continue to fight to keep her off of one-to-one as she continues to do very minuscule self-harm behaviors in an attempt to get one-to-one back. We will have a conversation with mother tomorrow about how to approach this moving forward. 4. Will look at possible referrals to ISL but will hopefully make this a quick therapeutic admission with discharge as soon as possible. Likelihood is that no one can take her immediately and this truly seems like baseline behavior. Will meet with mom to try to identify a strategy for discharge. PDMP PDMP Reviewed: Not Reviewed Involuntary Hold Information 2 Hold Status: Legal Status: Active Guardianship 96 Hour Hold: 96 Hour Involuntary Admission: Yes Other Hold: Hold End Date: 11/02/24 Attestations NPU 2 Medical Necessity Statement*: Inpatient hospitalization is medically necessary and the clinically appropriate intervention at this time. We will monitor medications and make changes as indicated. Likely length of stay days. Coding Level of Care Code Acute Code for [facility] Fwd Diagnoses Major depressive disorder, recurrent, severe with psychotic symptoms F33.3 Borderline personality disorder in adolescent F60.3 Post-traumatic stress disorder, unspecified F43.10 Generalized anxiety disorder F41.1 Suicidal ideation R45.851
[2025-03-20] MEDS: naltrexone hcl 50 mg Tablet PO (09:27)
[2025-03-20] MEDS: BuSPIRONE 10 mg Tablet 5 MG PO ×2 (09:27→20:35)
[2025-03-20] MEDS: lithium carbonate 300 mg Capsule PO ×2 (09:27→17:45)
[2025-03-20] MEDS: metformin 500 mg Tablet PO ×2 (09:27→17:45)
[2025-03-20] MEDS: pantoprazole DR 40 mg Tablet PO (09:27)
[2025-03-20] MEDS: benztropine 1 mg Tablet PO ×2 (09:27→17:45)
[2025-03-20] MEDS: sertraline 100 mg Tablet 200 MG PO (09:27)
[2025-03-20] MEDS: OXcarbazepine 300 mg Tablet PO (09:28)
[2025-03-20] MEDS: GUANFACINE 4 MG 4 EACH PO (09:29)
[2025-03-20] MEDS: CLONazepam 0.5 mg Tablet PO ×2 (09:57→20:35)
[2025-03-20] MEDS: hyDROXYzine 25 mg Capsule 50 MG PO (12:02)
[2025-03-20] MEDS: haloperidol 5 mg Tablet PO (12:05)
[2025-03-20] MEDS: ziprasidone 20 mg/mL SDV IM (12:58)
[2025-03-20] MEDS: LORazepam 1 MG/0.5 ML injection 2 MG IM (12:59)
[2025-03-20] MEDS: water for injection-sterile 10 ML (12:59)
[2025-03-20] MEDS: diphenhydrAMINE 50 mg/mL SDV 1mL IM (12:59)
[2025-03-20 14:00] VITALS: BP 99/68; PULSE 88; RESP 16; TEMP 36.4; O2SAT 97
--- NOTE | 2025-03-20 18:54 | PC.NURSE ---
@[id number] pt informed psa of self harming, psa informed nursing staff.upon nursing staff arriving to pt room pt had scratched herself on the arm that did not break the skin but continued to scratch herself. pt refused to stop at that time. nursing staff informed doctor lynn of incident and pt continuing to self harm. at that time verbal orders given to administer geodon 20mg im bid first dose now,benadryl 50mg im, ativan 2mg im now. administered medication per ordered. pt stating she will continue to self harm.
[2025-03-20 20:10] VITALS: BP 99/61; PULSE 79; RESP 16; TEMP 37.1; O2SAT 95
[2025-03-20] MEDS: acetaminophen 325 mg Tablet 650 MG PO (20:34)
[2025-03-20] MEDS: OXcarbazepine 300 mg Tablet 600 MG PO (20:35)
[2025-03-20] MEDS: prazosin 1 mg Capsule PO (20:35)
[2025-03-20] MEDS: trazodone 50 mg Tablet PO (20:35)
[2025-03-21 06:00] VITALS: BP 121/82; PULSE 79; RESP 16; O2SAT 95
[2025-03-21] MEDS: loperamide 2 mg Capsule PO (06:06)
[2025-03-21] MEDS: fluticasone nasal spray 16gm Btl 1 SPRAY INTRANASAL (07:55)
[2025-03-21] MEDS: sertraline 100 mg Tablet 200 MG PO (07:56)
[2025-03-21] MEDS: lithium carbonate 300 mg Capsule PO ×2 (07:56→17:16)
[2025-03-21] MEDS: metformin 500 mg Tablet PO ×2 (07:57→17:13)
[2025-03-21] MEDS: naltrexone hcl 50 mg Tablet PO (07:57)
[2025-03-21] MEDS: benztropine 1 mg Tablet PO ×2 (07:57→17:13)
[2025-03-21] MEDS: pantoprazole DR 40 mg Tablet PO (07:57)
[2025-03-21] MEDS: CLONazepam 0.5 mg Tablet PO ×2 (08:08→15:11)
[2025-03-21] MEDS: OXcarbazepine 300 mg Tablet PO (08:35)
[2025-03-21] MEDS: GUANFACINE 4 MG 4 EACH PO (08:35)
[2025-03-21] MEDS: haloperidol 5 mg Tablet PO (11:05)
[2025-03-21 14:00] VITALS: BP 98/72; PULSE 85; RESP 16; TEMP 36.4; O2SAT 97
[2025-03-21] MEDS: BuSPIRONE 10 mg Tablet PO (15:11)
[2025-03-21 15:37] LABS: Glucose Point of Care 127 mg/dL (70-110)
[2025-03-21] MEDS: LORazepam 1 MG/0.5 ML injection 2 MG IM (16:23)
[2025-03-21] MEDS: diphenhydrAMINE 50 mg/mL SDV 1mL IM (16:23)
[2025-03-21] MEDS: ziprasidone 20 mg/mL SDV IM (16:24)
[2025-03-21] MEDS: water for injection-sterile 10 ML (16:24)
--- NOTE | 2025-03-21 19:10 | PC.NURSE ---
1630 Pt self harming by scratching her arms and leaving red griffin and superficial wounds. Pt also picking at her scabs, no redirection working. All nurses suggestions were overlooked and pt stated No I'm not doing that ! Resulting in getting medications administered per Dr. Madrid orders.
--- NOTE | 2025-03-21 19:18 | PC.NURSE ---
1230 Pt started self harming behaviors, pt tried to choke herself with her own hands and arms. Staff increased their presence with the pt. Pt finally calmed down and watched some tv in the dayroom.
[2025-03-21 19:42] VITALS: BP 118/75; PULSE 88; RESP 16; O2SAT 96
[2025-03-21] MEDS: trazodone 50 mg Tablet PO (22:32)
[2025-03-21] MEDS: OXcarbazepine 300 mg Tablet 600 MG PO (22:32)
[2025-03-21] MEDS: hyDROXYzine 25 mg Capsule 50 MG PO (22:32)
[2025-03-21] MEDS: prazosin 1 mg Capsule PO (22:33)
--- NOTE | 2025-03-22 05:44 | P.NPUPN_ITS ---
Subjective NPU 2 Subjective: Patient presented today reporting that things are going poorly. We discussed that she has always stated that things are going poorly. She continues the lobby for a one-to-one and we continue to work to avoid this as a plan. She continued to endorse having sadness and wanting to and wanting to self-harm in all of her greatest hits. We discussed the importance of her choosing to not self-harm and excepting that she is a person in constant disarray and constant thoughts of suicidality and self-harm and she is going to have to manage that from a chronic perspective and not an acute perspective. We discussed the risks, benefits and alternatives of repeat drawing labs in the morning and getting a lithium level as well to make sure we understand where she is overall. She denied any side effects to the medications. Mental Status Exam 2 MSE Comments: This is an obese versus obese white female in hospital scrubs with limited grooming and eye contact. No abnormal movements except for mild psychomotor retardation. There were no new scratch griffin appreciated in left wrist. Mood was described as okay. Her affect was restricted in range. Thought process was linear, but superficial. Thought content: Patient endorsed having suicidal ideation, and denied homicidal ideation, there were no delusions reported or noted, she denied any auditory or visual hallucinations. Attention and concentration appeared intact and memory was somewhat reliable but no more formally tested. She is alert and oriented to person and place. Insight and judgment are limited versus impaired and impulse control is impaired. Intelligence appeared commensurate with mild cognitive impairment. Vitals/I&O/Wt Last Vital Signs Temp 97.6 F 03/21/25 14:00 Pulse 88 03/21/25 19:42 Resp 16 03/21/25 19:42 BP 118/75 03/21/25 19:42 Pulse Ox 96 03/21/25 19:42 O2 Del Method Room Air 03/21/25 14:00 03/21/25 03/21/25 03/22/25 14:59 22:59 06:59 Intake Total 480 / 480 240 / 720 Balance 480 / 480 240 / 720 Data NPU 03/16/25 22:23 03/16/25 22:23 A&P Assessment and plan (1) Major depressive disorder, recurrent, severe with psychotic symptoms: (2) Borderline personality disorder in adolescent: (3) Post-traumatic stress disorder, unspecified: (4) Generalized anxiety disorder: (5) Suicidal ideation: Plan This is a 19-year-old white female with a long history of mental health challenges with dozens of inpatient hospitalizations and past outpatient services who was last hospitalized in October of this year prior to the hospitalization at the end of January that ended yesterday 03/16/2025. Who presented again with reports of suicidal thinking and thoughts to self-harm. She was reporting inability to manage her situation at home and seemed unchanged from previous interactions. We will need to either discharge her in the next couple of days or look towards getting her into an ISL. She has a guardian which is her mother and she endorsed symptoms consistent with borderline personality disorder 1. Continue current medication from discharge 03/16/2025. Start Klonopin 0.5 mg p.o. twice daily for anxiety. 2. Encourage individual, group and milieu therapy. Patient would benefit from outpatient DBT. 3. Return to every 15 minute checks for safety as she had been placed on one-to-one overnight. We will continue to fight to keep her off of one-to-one as she continues to do very minuscule self-harm behaviors in an attempt to get one-to-one back. We will have a conversation with mother tomorrow about how to approach this moving forward. 4. Will look at possible referrals to ISL but will hopefully make this a quick therapeutic admission with discharge as soon as possible. Likelihood is that no one can take her immediately and this truly seems like baseline behavior. Will meet with mom to try to identify a strategy for discharge. PDMP PDMP Reviewed: Not Reviewed Involuntary Hold Information 2 Hold Status: Legal Status: Active Guardianship 96 Hour Hold: 96 Hour Involuntary Admission: Yes Other Hold: Hold End Date: 11/02/24 Attestations NPU 2 Medical Necessity Statement*: Inpatient hospitalization is medically necessary and the clinically appropriate intervention at this time. We will monitor medications and make changes as indicated. Likely length of stay days. Coding Level of Care Code Acute Code for [facility] Fwd Diagnoses Major depressive disorder, recurrent, severe with psychotic symptoms F33.3 Borderline personality disorder in adolescent F60.3 Post-traumatic stress disorder, unspecified F43.10 Generalized anxiety disorder F41.1 Suicidal ideation R45.853
[2025-03-22 06:00] VITALS: RESP 16
[2025-03-22] MEDS: sertraline 100 mg Tablet 200 MG PO (08:18)
[2025-03-22] MEDS: OXcarbazepine 300 mg Tablet PO (08:18)
[2025-03-22] MEDS: metformin 500 mg Tablet PO ×2 (08:18→17:21)
[2025-03-22] MEDS: benztropine 1 mg Tablet PO ×2 (08:18→17:21)
[2025-03-22] MEDS: naltrexone hcl 50 mg Tablet PO (08:18)
[2025-03-22] MEDS: lithium carbonate 300 mg Capsule PO ×2 (08:18→17:21)
[2025-03-22] MEDS: pantoprazole DR 40 mg Tablet PO (08:19)
[2025-03-22] MEDS: CLONazepam 0.5 mg Tablet PO ×2 (08:22→19:27)
[2025-03-22] MEDS: fluticasone nasal spray 16gm Btl 1 SPRAY INTRANASAL (08:30)
[2025-03-22] MEDS: GUANFACINE 4 MG 4 EACH PO (08:30)
[2025-03-22 09:16] LABS: Basophils # 0.1 10^3/uL (0.0-0.1); Basophils % 0.6 %; Eosinophils # 0.2 10^3/uL (0.0-0.8); Eosinophils % 2.3 %; Hematocrit 39.3 % (36-47); Lymphocytes # 2.1 10^3/uL (1.5-6.5); Lymphocytes % 24.1 %; Mean Corpuscular HGB Conc 32.3 g/dL (30-55); Mean Corpuscular Hemoglobin 27.9 pg (27-33); Mean Corpuscular Volume 86.2 fl (85-98); Mean Platelet Volume 11.7 fL (7.4-10.4); Monocytes # 0.5 10^3/uL (0.2-0.9); Monocytes % 5.9 %; Neutrophils # 5.87 10^3/uL (1.8-8.0); Neutrophils % 66.8 %; Nucleated Red Blood Cells % 0 %; Platelet Count 199 10^3/cmm (157-399); Red Blood Count 4.56 10^6/uL (3.85-5.65); Red Cell Distribution Width 13.8 % (12.1-15.1); White Blood Count 8.79 10^3/uL (4.5-13.0)
[2025-03-22 09:38] LABS: Alanine Aminotransferase 49 U/L (0-33); Albumin Level 4.3 g/dL (3.5-5.2); Alkaline Phosphatase 158 U/L (35-105); Anion Gap 15.9 (5-19); Aspartate Amino Transferase 31 U/L (0-32); Blood Urea Nitrogen 9 mg/dL (6-20); Calcium 9.6 mg/dL (8.5-10.5); Carbon Dioxide 24 mmol/L (22-29); Chloride 104 mmol/L (98-107); Creatinine Clr Calc Pharmacy 170.4463; Free T4 Free Thyroxine 0.83 ng/dL (0.82-1.77); Globulin 2.6 g/dL (1.3-4.6); Glomerular Filtration Rate 91.4 mL/min (90-130); Glucose 135 mg/dL (65-115); Lithium 0.7 mmol/L (0.6-1.2); Osmolality Calculated 291 mOsm/kg (285-295); Potassium 3.9 mmol/L (3.5-5.1); Sodium 140 mmol/L (136-145); Thyroid Stimulating Hormone 1.23 uIU/mL (0.27-4.20); Total Bilirubin 0.2 mg/dL (0.15-1.2); Total Protein 6.9 g/dL (6.6-8.7)
[2025-03-22 09:47] LABS: Slide Review Slide Review Perform
[2025-03-22] MEDS: acetaminophen 325 mg Tablet 650 MG PO (10:18)
[2025-03-22] MEDS: hyDROXYzine 25 mg Capsule 50 MG PO ×2 (10:19→20:32)
[2025-03-22] MEDS: diphenhydrAMINE 50 mg/mL SDV 1mL IM (11:18)
[2025-03-22] MEDS: LORazepam 1 MG/0.5 ML injection 2 MG IM (11:18)
[2025-03-22] MEDS: haloperidol inj 5 mg/mL INJ 1 mL IM (11:19)
[2025-03-22 14:00] VITALS: BP 136/89; PULSE 124; RESP 16; TEMP 36.9; O2SAT 97
[2025-03-22] MEDS: BuSPIRONE 10 mg Tablet PO (15:19)
--- NOTE | 2025-03-22 15:57 | P.NPUPN_ITS ---
Subjective NPU 2 Subjective: Patient presented today reporting that she is feeling suicidal. She continues her same behavior without change. She continues to be intrusive and speculative about her situation and wanting a sitter to assist her but continuing to have very idle threats describing that she does not want to go home that she wants to go to an ISL and that she will hang herself if she goes home. We discussed the fact that her self-injurious behavior is not suicidal behavior and that she continues to demonstrate no signs that she is actually trying to do herself great harm. She denies any side effects to her medication. We discussed that we would repeat her blood sugar in the morning as a fasting number to get a sense of where things are from a insulin resistance standpoint. Mental Status Exam 2 MSE Comments: This is an obese versus obese white female in hospital scrubs with limited grooming and eye contact. No abnormal movements except for mild psychomotor retardation. There were no new scratch griffin appreciated in left wrist. Mood was described as okay. Her affect was restricted in range. Thought process was linear, but superficial. Thought content: Patient endorsed having suicidal ideation, and denied homicidal ideation, there were no delusions reported or noted, she denied any auditory or visual hallucinations. Attention and concentration appeared intact and memory was somewhat reliable but no more formally tested. She is alert and oriented to person and place. Insight and judgment are limited versus impaired and impulse control is impaired. Intelligence appeared commensurate with mild cognitive impairment. Vitals/I&O/Wt Last Vital Signs Temp 98.5 F 03/22/25 14:00 Pulse 124 H 03/22/25 14:00 Resp 16 03/22/25 14:00 BP 136/89 03/22/25 14:00 Pulse Ox 97 03/22/25 14:00 O2 Del Method Room Air 03/22/25 14:00 Data NPU 03/22/25 08:52 03/22/25 08:52 A&P Assessment and plan (1) Major depressive disorder, recurrent, severe with psychotic symptoms: (2) Borderline personality disorder in adolescent: (3) Post-traumatic stress disorder, unspecified: (4) Generalized anxiety disorder: (5) Suicidal ideation: Plan This is a 19-year-old white female with a long history of mental health challenges with dozens of inpatient hospitalizations and past outpatient services who was last hospitalized in October of this year prior to the hospitalization at the end of January that ended yesterday 03/16/2025. Who presented again with reports of suicidal thinking and thoughts to self-harm. She was reporting inability to manage her situation at home and seemed unchanged from previous interactions. We will need to either discharge her in the next couple of days or look towards getting her into an ISL. She has a guardian which is her mother and she endorsed symptoms consistent with borderline personality disorder 1. Continue current medication from discharge 03/16/2025. Start Klonopin 0.5 mg p.o. twice daily for anxiety. Cliff 0.7 we will increase to 300 the morning and 600 in the evening. 2. Encourage individual, group and milieu therapy. Patient would benefit from outpatient DBT. 3. Return to every 15 minute checks for safety as she had been placed on one-to-one overnight. We will continue to fight to keep her off of one-to-one as she continues to do very minuscule self-harm behaviors in an attempt to get one-to-one back. We will have a conversation with mother tomorrow about how to approach this moving forward. 4. Will look at possible referrals to ISL but will hopefully make this a quick therapeutic admission with discharge as soon as possible. Likelihood is that no one can take her immediately and this truly seems like baseline behavior. Will meet with mom to try to identify a strategy for discharge. PDMP PDMP Reviewed: Not Reviewed Involuntary Hold Information 2 Hold Status: Legal Status: Active Guardianship 96 Hour Hold: 96 Hour Involuntary Admission: Yes Other Hold: Hold End Date: 11/02/24 Attestations NPU 2 Medical Necessity Statement*: Inpatient hospitalization is medically necessary and the clinically appropriate intervention at this time. We will monitor medications and make changes as indicated. Likely length of stay 4-6 days. Coding Level of Care Code Acute Code for [facility] Fwd Diagnoses Major depressive disorder, recurrent, severe with psychotic symptoms F33.3 Borderline personality disorder in adolescent F60.3 Post-traumatic stress disorder, unspecified F43.10 Generalized anxiety disorder F41.1 Suicidal ideation R45.859
--- NOTE | 2025-03-22 17:32 | PC.NURSE ---
@[id number] pt up at nurses station stating she wants to hurt herself. pt scratching herself informed pt to quit self harming pt did as requested.
--- NOTE | 2025-03-22 17:37 | PC.NURSE ---
@1105 pt walking down hallway went into her room scratching herself then when instructed to stop pt went into the dayroom and scratched her leg, pt then went into her room sat on her bed scratching her arm again instucted to stop pt fingers bloody from self harming, pt then started walking down hallway going to exit door pushing on it, pt instructed to quit pt refused, security spoke with pt who then produced a half of medication cup when asked where she got that pt stated up near nurses station it was left there by another patient. when asked where was the other half pt stated it was thrown away. later pt stated to executive director of nursing that she had swallowed the other half of cup. pt at that time continued to scratch herself informed doctor of pt statements and actions, IM medication administered left deltoid benadryl 50mg in the right deltoid haldol 5mg and lorazepam 2mg.
--- NOTE | 2025-03-22 19:12 | XRR_ITS ---
PROCEDURE INFORMATION: Exam: XR Abdomen Exam date and time: 03/22/2025 7:29 PM Age: 19 years old Clinical indication: Other: Patient reports swallowed foreign object; Additional info: Patient reports swallowed pen TECHNIQUE: Imaging protocol: Radiologic exam of the abdomen. Views: Frontal supine view of the abdomen. 1 View. COMPARISON: No relevant prior studies available. FINDINGS: Gastrointestinal tract: Nonspecific bowel-gas pattern without evidence of large or small bowel obstruction. Bones/joints: Unremarkable. Soft tissues: No definitive radiopaque foreign body identified. XR/XR abdomen 1V* [id number] IMPRESSION: 1. No plain film evidence of acute intra-abdominal or pelvic process. 2. No definitive radiopaque foreign body identified.
[2025-03-22] MEDS: haloperidol 5 mg Tablet PO (19:27)
[2025-03-22] MEDS: prazosin 1 mg Capsule PO (19:27)
[2025-03-22] MEDS: OXcarbazepine 300 mg Tablet 600 MG PO (19:28)
[2025-03-22] MEDS: trazodone 50 mg Tablet PO (20:32)
[2025-03-22] MEDS: ziprasidone 20 mg/mL SDV IM (20:42)
[2025-03-22 20:59] VITALS: BP 128/88; PULSE 108; RESP 19; TEMP 37.2; O2SAT 97
[2025-03-23 06:00] VITALS: BP 113/72; PULSE 92; RESP 18; TEMP 37.1; O2SAT 97
[2025-03-23 06:37] LABS: Glucose Fasting 86 mg/dL (74-109)
[2025-03-23] MEDS: OXcarbazepine 300 mg Tablet PO (08:07)
[2025-03-23] MEDS: fluticasone nasal spray 16gm Btl 1 SPRAY INTRANASAL (08:07)
[2025-03-23] MEDS: lithium carbonate 300 mg Capsule PO ×2 (08:07→17:06)
[2025-03-23] MEDS: naltrexone hcl 50 mg Tablet PO (08:07)
[2025-03-23] MEDS: metformin 500 mg Tablet PO ×2 (08:07→17:06)
[2025-03-23] MEDS: pantoprazole DR 40 mg Tablet PO (08:07)
[2025-03-23] MEDS: benztropine 1 mg Tablet PO ×2 (08:07→17:06)
[2025-03-23] MEDS: sertraline 100 mg Tablet 200 MG PO (08:07)
[2025-03-23] MEDS: GUANFACINE 4 MG 4 EACH PO (08:08)
[2025-03-23 14:00] VITALS: BP 105/71; PULSE 91; RESP 16; TEMP 36.4; O2SAT 98
--- NOTE | 2025-03-23 16:08 | P.NPUPN_ITS ---
Subjective NPU 2 Subjective: Patient presented today reporting that she has had a decent day and is reporting that this has been a good day overall. She was very intrusive as usual per staff reports and direct observation but was not expressing irritable or agitated thoughts in general. She was requesting some of her privileges back and we agreed to take things in a [id number] fashion starting with her getting socks back given them being less of a risk for being used in some self-injurious way. She has been requesting her shirt and we agreed that if she did well today we will consider that tomorrow. She appears optimistic about going to an ISL and is resistant to conversation about going home. We discussed going back home possibly being something that has to happen in some fashion. She denied any side effects to her medication. We discussed the likelihood for changes in the next day. Mental Status Exam 2 MSE Comments: This is an obese versus obese white female in hospital scrubs with limited grooming and eye contact. No abnormal movements except for mild psychomotor retardation. There were no new scratch griffin appreciated in left wrist. Mood was described as okay. Her affect was restricted in range. Thought process was linear, but superficial. Thought content: Patient endorsed having suicidal ideation, and denied homicidal ideation, there were no delusions reported or noted, she denied any auditory or visual hallucinations. Attention and concentration appeared intact and memory was somewhat reliable but no more formally tested. She is alert and oriented to person and place. Insight and judgment are limited versus impaired and impulse control is impaired. Intelligence appeared commensurate with mild cognitive impairment. Vitals/I&O/Wt Last Vital Signs Temp 97.5 F L 03/23/25 14:00 Pulse 91 03/23/25 14:00 Resp 16 03/23/25 14:00 BP 105/71 03/23/25 14:00 Pulse Ox 98 03/23/25 14:00 O2 Del Method Room Air 03/23/25 14:00 Weight last 48 hrs Weight 95.164 kg Data NPU 03/22/25 08:52 03/22/25 08:52 A&P Assessment and plan (1) Major depressive disorder, recurrent, severe with psychotic symptoms: (2) Borderline personality disorder in adolescent: (3) Post-traumatic stress disorder, unspecified: (4) Generalized anxiety disorder: (5) Suicidal ideation: Plan This is a 19-year-old white female with a long history of mental health challenges with dozens of inpatient hospitalizations and past outpatient services who was last hospitalized in October of this year prior to the hospitalization at the end of January that ended yesterday 03/16/2025. Who presented again with reports of suicidal thinking and thoughts to self-harm. She was reporting inability to manage her situation at home and seemed unchanged from previous interactions. We will need to either discharge her in the next couple of days or look towards getting her into an ISL. She has a guardian which is her mother and she endorsed symptoms consistent with borderline personality disorder 1. Continue current medication from discharge 03/16/2025. Start Klonopin 0.5 mg p.o. twice daily for anxiety. Roann 0.7 we will increase to 300 the morning and 600 in the evening. 2. Encourage individual, group and milieu therapy. Patient would benefit from outpatient DBT. 3. Return to every 15 minute checks for safety as she had been placed on one-to-one overnight. We will continue to fight to keep her off of one-to-one as she continues to do very minuscule self-harm behaviors in an attempt to get one-to-one back. We will have a conversation with mother tomorrow about how to approach this moving forward. 4. Will look at possible referrals to ISL but will hopefully make this a quick therapeutic admission with discharge as soon as possible. Likelihood is that no one can take her immediately and this truly seems like baseline behavior. Will meet with mom to try to identify a strategy for discharge. PDMP PDMP Reviewed: Not Reviewed Involuntary Hold Information 2 Hold Status: Legal Status: Active Guardianship 96 Hour Hold: 96 Hour Involuntary Admission: Yes Other Hold: Hold End Date: 11/02/24 Attestations NPU 2 Medical Necessity Statement*: Inpatient hospitalization is medically necessary and the clinically appropriate intervention at this time. We will monitor medications and make changes as indicated. Likely length of stay 4-6 days. Coding Level of Care Code Acute Code for [facility] Fwd Diagnoses Major depressive disorder, recurrent, severe with psychotic symptoms F33.3 Borderline personality disorder in adolescent F60.3 Post-traumatic stress disorder, unspecified F43.10 Generalized anxiety disorder F41.1 Suicidal ideation R45.851
[2025-03-23] MEDS: BuSPIRONE 10 mg Tablet PO ×2 (17:09→19:49)
[2025-03-23] MEDS: trazodone 50 mg Tablet PO (19:48)
[2025-03-23] MEDS: OLANZapine 5 mg ODT PO (19:48)
[2025-03-23] MEDS: OXcarbazepine 300 mg Tablet 600 MG PO (19:48)
[2025-03-23] MEDS: acetaminophen 325 mg Tablet 650 MG PO (19:49)
[2025-03-23] MEDS: prazosin 1 mg Capsule PO (19:49)
[2025-03-23 21:37] VITALS: BP 100/68; PULSE 85; RESP 18; TEMP 36.9; O2SAT 98
[2025-03-24 06:00] VITALS: BP 104/64; PULSE 83; RESP 16; O2SAT 97
[2025-03-24] MEDS: OXcarbazepine 300 mg Tablet PO (08:46)
[2025-03-24] MEDS: benztropine 1 mg Tablet PO ×2 (08:46→17:31)
[2025-03-24] MEDS: metformin 500 mg Tablet PO ×2 (08:46→17:31)
[2025-03-24] MEDS: lithium carbonate 300 mg Capsule PO ×2 (08:46→17:31)
[2025-03-24] MEDS: pantoprazole DR 40 mg Tablet PO (08:46)
[2025-03-24] MEDS: blistex lip oint 7 gm Tube 1 APPLIC TOPICAL (08:47)
[2025-03-24] MEDS: naltrexone hcl 50 mg Tablet PO (08:47)
[2025-03-24] MEDS: BuSPIRONE 10 mg Tablet PO ×3 (08:47→20:07)
[2025-03-24] MEDS: sertraline 100 mg Tablet 200 MG PO (08:47)
[2025-03-24] MEDS: fluticasone nasal spray 16gm Btl 1 SPRAY INTRANASAL (08:48)
[2025-03-24] MEDS: GUANFACINE 4 MG 4 EACH PO (08:48)
[2025-03-24] MEDS: OLANZapine 5 mg ODT PO (11:03)
[2025-03-24] MEDS: magnesium hydroxide 30 mL UDC PO (12:17)
[2025-03-24] MEDS: hyDROXYzine 25 mg Capsule 100 MG PO (13:11)
[2025-03-24] MEDS: haloperidol 5 mg Tablet PO (13:11)
[2025-03-24 14:00] VITALS: BP 106/71; PULSE 100; RESP 18; TEMP 36.9; O2SAT 98
[2025-03-24] MEDS: acetaminophen 325 mg Tablet 650 MG PO ×2 (15:17→20:07)
--- NOTE | 2025-03-24 15:52 | PC.NURSE ---
phone priv from Guardian This nurse spoke with Guardian about lifting the No phone calls rule. Guardian stated that pt could use the phone, but will make it active again if the pt abuses the phone privileges.
[2025-03-24] MEDS: ziprasidone hcl 40 mg Capsule PO (17:31)
--- NOTE | 2025-03-24 17:58 | P.NPUPN_ITS ---
Subjective NPU 2 Subjective: Patient presented today reporting that she had done well. Staff agree with her assessment and we discussed the risks benefits and alternatives of her getting her shirt back and possibly being able to wear it overnight tomorrow. She denied any specific issues and we discussed the risks, benefits and alternatives of initiating Geodon 40 mg p.o. twice daily and she understood and agreed to proceed as is documented in this note. We discussed the fact that she had felt much more calm when she has gotten Geodon injections after self-injurious acts and we discussed may be her getting it preemptively. She denied any side effects to her medications. Mental Status Exam 2 MSE Comments: This is an obese versus obese white female in hospital scrubs with limited grooming and eye contact. No abnormal movements except for mild psychomotor retardation. There were no new scratch griffin appreciated in left wrist. Mood was described as okay. Her affect was restricted in range. Thought process was linear, but superficial. Thought content: Patient endorsed having suicidal ideation, and denied homicidal ideation, there were no delusions reported or noted, she denied any auditory or visual hallucinations. Attention and concentration appeared intact and memory was somewhat reliable but no more formally tested. She is alert and oriented to person and place. Insight and judgment are limited versus impaired and impulse control is impaired. Intelligence appeared commensurate with mild cognitive impairment. Vitals/I&O/Wt Last Vital Signs Temp 97.4 F L 03/24/25 22:00 Pulse 74 03/24/25 22:00 Resp 18 03/24/25 22:00 BP 104/69 03/24/25 22:00 Pulse Ox 99 03/24/25 22:00 O2 Del Method Room Air 03/24/25 14:00 03/24/25 14:59 Intake Total 480 / 480 Balance 480 / 480 Weight last 48 hrs Weight 95.164 kg Data NPU 03/22/25 08:52 03/22/25 08:52 A&P Assessment and plan (1) Major depressive disorder, recurrent, severe with psychotic symptoms: (2) Borderline personality disorder in adolescent: (3) Post-traumatic stress disorder, unspecified: (4) Generalized anxiety disorder: (5) Suicidal ideation: Plan This is a 19-year-old white female with a long history of mental health challenges with dozens of inpatient hospitalizations and past outpatient services who was last hospitalized in October of this year prior to the hospitalization at the end of January that ended yesterday 03/16/2025. Who presented again with reports of suicidal thinking and thoughts to self-harm. She was reporting inability to manage her situation at home and seemed unchanged from previous interactions. We will need to either discharge her in the next couple of days or look towards getting her into an ISL. She has a guardian which is her mother and she endorsed symptoms consistent with borderline personality disorder 1. Continue current medication from discharge 03/16/2025. Start Klonopin 0.5 mg p.o. twice daily for anxiety. [place] 0.7 we will increase to 300 the morning and 600 in the evening. Initiate Geodon 40 mg p.o. twice daily. 2. Encourage individual, group and milieu therapy. Patient would benefit from outpatient DBT. 3. Return to every 15 minute checks for safety as she had been placed on one-to-one overnight. We will continue to fight to keep her off of one-to-one as she continues to do very minuscule self-harm behaviors in an attempt to get one-to-one back. We will have a conversation with mother tomorrow about how to approach this moving forward. 4. Will look at possible referrals to ISL but will hopefully make this a quick therapeutic admission with discharge as soon as possible. Likelihood is that no one can take her immediately and this truly seems like baseline behavior. Will meet with mom to try to identify a strategy for discharge. PDMP PDMP Reviewed: Not Reviewed Involuntary Hold Information 2 Hold Status: Legal Status: Active Guardianship 96 Hour Hold: 96 Hour Involuntary Admission: Yes Other Hold: Hold End Date: 11/02/24 Attestations NPU 2 Medical Necessity Statement*: Inpatient hospitalization is medically necessary and the clinically appropriate intervention at this time. We will monitor medications and make changes as indicated. Likely length of stay 2-5 days. Coding Level of Care Code Acute Code for Chg Fwd Diagnoses Major depressive disorder, recurrent, severe with psychotic symptoms F33.3 Borderline personality disorder in adolescent F60.3 Post-traumatic stress disorder, unspecified F43.10 Generalized anxiety disorder F41.1 Suicidal ideation R45.858
[2025-03-24] MEDS: CLONazepam 0.5 mg Tablet PO (18:46)
[2025-03-24] MEDS: prazosin 1 mg Capsule PO (20:07)
[2025-03-24] MEDS: trazodone 50 mg Tablet PO (20:07)
[2025-03-24] MEDS: OXcarbazepine 300 mg Tablet 600 MG PO (20:08)
[2025-03-24 22:00] VITALS: BP 104/69; PULSE 74; RESP 18; TEMP 36.3; O2SAT 99
[2025-03-25] MEDS: acetaminophen 325 mg Tablet 650 MG PO ×3 (02:34→16:50)
[2025-03-25 06:00] VITALS: BP 101/67; PULSE 82; RESP 16; TEMP 36.3; O2SAT 96
[2025-03-25] MEDS: ziprasidone hcl 40 mg Capsule PO ×2 (06:10→16:55)
[2025-03-25] MEDS: sertraline 100 mg Tablet 200 MG PO (08:03)
[2025-03-25] MEDS: magnesium hydroxide 30 mL UDC PO (08:03)
[2025-03-25] MEDS: GUANFACINE 4 MG 4 EACH PO (08:03)
[2025-03-25] MEDS: pantoprazole DR 40 mg Tablet PO (08:04)
[2025-03-25] MEDS: benztropine 1 mg Tablet PO ×2 (08:04→17:56)
[2025-03-25] MEDS: metformin 500 mg Tablet PO ×2 (08:04→17:56)
[2025-03-25] MEDS: OXcarbazepine 300 mg Tablet PO (08:04)
[2025-03-25] MEDS: naltrexone hcl 50 mg Tablet PO (08:04)
[2025-03-25] MEDS: lithium carbonate 300 mg Capsule PO ×2 (08:04→17:56)
[2025-03-25] MEDS: fluticasone nasal spray 16gm Btl 1 SPRAY INTRANASAL (08:04)
[2025-03-25] MEDS: BuSPIRONE 10 mg Tablet PO ×3 (08:04→19:38)
[2025-03-25] MEDS: CLONazepam 0.5 mg Tablet PO (09:57)
--- NOTE | 2025-03-25 11:32 | P.NPUPN_ITS ---
Subjective NPU 2 Subjective: Patient presented today reporting that things are going fine for her perspective. She reports that she feels better and began discussing the possibility of going home specifically stating that she wanted to go home. We had discussed previously the likelihood that there would have to be something in between the hospital and her getting into an ISL and that the process has been started and that the ball is rolling but there will not be a real indication for her being in the hospital the entire time. She was focused on getting her privileges back and not speaking about being suicidal or having thoughts to self-harm but also continued to have some somatic complaints. She denied any side effects to the medications. Mental Status Exam 2 MSE Comments: This is an obese versus obese white female in hospital scrubs with limited grooming and eye contact. No abnormal movements except for mild psychomotor retardation. There were no new scratch griffin appreciated in left wrist. Mood was described as okay. Her affect was restricted in range. Thought process was linear, but superficial. Thought content: Patient endorsed having suicidal ideation, and denied homicidal ideation, there were no delusions reported or noted, she denied any auditory or visual hallucinations. Attention and concentration appeared intact and memory was somewhat reliable but no more formally tested. She is alert and oriented to person and place. Insight and judgment are limited versus impaired and impulse control is impaired. Intelligence appeared commensurate with mild cognitive impairment. Vitals/I&O/Wt Last Vital Signs Temp 97.4 F L 03/25/25 06:00 Pulse 82 03/25/25 06:00 Resp 16 03/25/25 06:00 BP 101/67 03/25/25 06:00 Pulse Ox 96 03/25/25 06:00 O2 Del Method Room Air 03/24/25 14:00 03/24/25 03/25/25 03/25/25 22:59 06:59 14:59 Intake Total 240 / 720 Balance 240 / 720 Weight last 48 hrs Weight 95.164 kg Data NPU 03/22/25 08:52 03/22/25 08:52 A&P Assessment and plan (1) Major depressive disorder, recurrent, severe with psychotic symptoms: (2) Borderline personality disorder in adolescent: (3) Post-traumatic stress disorder, unspecified: (4) Generalized anxiety disorder: (5) Suicidal ideation: Plan This is a 19-year-old white female with a long history of mental health challenges with dozens of inpatient hospitalizations and past outpatient services who was last hospitalized in October of this year prior to the hospitalization at the end of January that ended yesterday 03/16/2025. Who presented again with reports of suicidal thinking and thoughts to self-harm. She was reporting inability to manage her situation at home and seemed unchanged from previous interactions. We will need to either discharge her in the next couple of days or look towards getting her into an ISL. She has a guardian which is her mother and she endorsed symptoms consistent with borderline personality disorder 1. Continue current medication from discharge 03/16/2025. Start Klonopin 0.5 mg p.o. twice daily for anxiety. [place] 0.7. Initiate Geodon 40 mg p.o. twice daily. 2. Encourage individual, group and milieu therapy. Patient would benefit from outpatient DBT. 3. Return to every 15 minute checks for safety as she had been placed on one-to-one overnight. We will continue to fight to keep her off of one-to-one as she continues to do very minuscule self-harm behaviors in an attempt to get one-to-one back. We will have a conversation with mother tomorrow about how to approach this moving forward. 4. Will look at possible referrals to ISL but will hopefully make this a quick therapeutic admission with discharge as soon as possible. Likelihood is that no one can take her immediately and this truly seems like baseline behavior. Will meet with mom to try to identify a strategy for discharge. She has been slowly receiving her privileges back having now received her socks, her longsleeve shirt, her underwear and now is requesting her glasses. And brought up the possibility of going home. PDMP PDMP Reviewed: Not Reviewed Involuntary Hold Information 2 Hold Status: Legal Status: Active Guardianship 96 Hour Hold: 96 Hour Involuntary Admission: Yes Other Hold: Hold End Date: 11/02/24 Attestations NPU 2 Medical Necessity Statement*: Inpatient hospitalization is medically necessary and the clinically appropriate intervention at this time. We will monitor medications and make changes as indicated. Likely length of stay 1-4 days. Coding Level of Care Code Acute Code for Chg Fwd Diagnoses Major depressive disorder, recurrent, severe with psychotic symptoms F33.3 Borderline personality disorder in adolescent F60.3 Post-traumatic stress disorder, unspecified F43.10 Generalized anxiety disorder F41.1 Suicidal ideation R45.851
[2025-03-25 14:00] VITALS: BP 104/73; PULSE 75; RESP 19; TEMP 36.5; O2SAT 98
[2025-03-25] MEDS: haloperidol 5 mg Tablet PO (14:23)
[2025-03-25 19:30] VITALS: BP 111/75; PULSE 80; RESP 18; TEMP 36.7; O2SAT 94
[2025-03-25] MEDS: OXcarbazepine 300 mg Tablet 600 MG PO (19:37)
[2025-03-25] MEDS: trazodone 50 mg Tablet PO (19:38)
[2025-03-25] MEDS: hyDROXYzine 25 mg Capsule 100 MG PO (19:38)
[2025-03-25] MEDS: prazosin 1 mg Capsule PO (20:04)
[2025-03-26] MEDS: acetaminophen 325 mg Tablet 650 MG PO ×3 (00:17→17:16)
[2025-03-26] MEDS: OLANZapine 5 mg ODT PO (00:50)
[2025-03-26 06:00] VITALS: BP 99/62; PULSE 61; RESP 16; O2SAT 97
[2025-03-26] MEDS: lithium carbonate 300 mg Capsule PO ×2 (08:07→17:16)
[2025-03-26] MEDS: pantoprazole DR 40 mg Tablet PO (08:07)
[2025-03-26] MEDS: naltrexone hcl 50 mg Tablet PO (08:08)
[2025-03-26] MEDS: BuSPIRONE 10 mg Tablet PO ×3 (08:08→19:19)
[2025-03-26] MEDS: ziprasidone hcl 40 mg Capsule PO ×2 (08:08→17:16)
[2025-03-26] MEDS: sertraline 100 mg Tablet 200 MG PO (08:08)
[2025-03-26] MEDS: OXcarbazepine 300 mg Tablet PO (08:08)
[2025-03-26] MEDS: benztropine 1 mg Tablet PO ×2 (08:08→17:16)
[2025-03-26] MEDS: metformin 500 mg Tablet PO ×2 (08:08→17:16)
[2025-03-26] MEDS: fluticasone nasal spray 16gm Btl 1 SPRAY INTRANASAL (08:08)
[2025-03-26] MEDS: GUANFACINE 4 MG 4 EACH PO (08:09)
[2025-03-26] MEDS: hyDROXYzine 25 mg Capsule 100 MG PO ×2 (11:50→19:18)
[2025-03-26 14:00] VITALS: BP 104/67; PULSE 85; RESP 18; TEMP 36.8; O2SAT 97
--- NOTE | 2025-03-26 15:14 | P.NPUPN_ITS ---
Subjective NPU 2 Subjective: Patient presented today reporting that she feels like she is ready to go home. We have continued to systematically give her Bactrim privileges with now her having her glasses back and her undergarments and all of her close. We discussed that we would reach out to her mother and talk about the possibility of discharge. I agreed to consider a plan for discharge in the morning if her mother was in agreement. Mental Status Exam 2 MSE Comments: This is an obese versus obese white female in hospital scrubs with limited grooming and eye contact. No abnormal movements except for mild psychomotor retardation. There were no new scratch griffin appreciated in left wrist. Mood was described as better, I want to go home. Her affect was restricted in range. Thought process was linear, but superficial. Thought content: Patient endorsed having suicidal ideation, and denied homicidal ideation, there were no delusions reported or noted, she denied any auditory or visual hallucinations. Attention and concentration appeared intact and memory was somewhat reliable but no more formally tested. She is alert and oriented to person and place. Insight and judgment are limited versus impaired and impulse control is impaired. Intelligence appeared commensurate with mild cognitive impairment. Vitals/I&O/Wt Last Vital Signs Temp 98.0 F 03/26/25 19:50 Pulse 76 03/26/25 19:50 Resp 18 03/26/25 19:50 BP 123/82 03/26/25 19:50 Pulse Ox 97 03/26/25 19:50 O2 Del Method Room Air 03/26/25 19:50 Data NPU 03/22/25 08:52 03/22/25 08:52 A&P Assessment and plan (1) Major depressive disorder, recurrent, severe with psychotic symptoms: (2) Borderline personality disorder in adolescent: (3) Post-traumatic stress disorder, unspecified: (4) Generalized anxiety disorder: (5) Suicidal ideation: Plan This is a 19-year-old white female with a long history of mental health challenges with dozens of inpatient hospitalizations and past outpatient services who was last hospitalized in October of this year prior to the hospitalization at the end of January that ended yesterday 03/16/2025. Who presented again with reports of suicidal thinking and thoughts to self-harm. She was reporting inability to manage her situation at home and seemed unchanged from previous interactions. We will need to either discharge her in the next couple of days or look towards getting her into an ISL. She has a guardian which is her mother and she endorsed symptoms consistent with borderline personality disorder 1. Continue current medication from discharge 03/16/2025. Started Klonopin 0.5 mg p.o. twice daily for anxiety. [place] 0.7. Initiate Geodon 40 mg p.o. twice daily. 2. Encourage individual, group and milieu therapy. Patient would benefit from outpatient DBT. 3. Return to every 15 minute checks for safety as she had been placed on one-to-one overnight. We will continue to fight to keep her off of one-to-one as she continues to do very minuscule self-harm behaviors in an attempt to get one-to-one back. We will have a conversation with mother tomorrow about how to approach this moving forward. 4. Will look at possible referrals to ISL but will hopefully make this a quick therapeutic admission with discharge as soon as possible. Likelihood is that no one can take her immediately and this truly seems like baseline behavior. Will meet with mom to try to identify a strategy for discharge. She has been slowly receiving her privileges back having now received her socks, her longsleeve shirt, her underwear and now is requesting her glasses. And brought up the possibility of going home. Plan for discharge tomorrow. PDMP PDMP Reviewed: Not Reviewed Involuntary Hold Information 2 Hold Status: Legal Status: Active Guardianship 96 Hour Hold: 96 Hour Involuntary Admission: Yes Other Hold: Hold End Date: 11/02/24 Attestations NPU 2 Medical Necessity Statement*: Inpatient hospitalization is medically necessary and the clinically appropriate intervention at this time. We will monitor medications and make changes as indicated. Likely length of stay 1-3 days. Coding Level of Care Code Acute Code for Chg Fwd Diagnoses Major depressive disorder, recurrent, severe with psychotic symptoms F33.3 Borderline personality disorder in adolescent F60.3 Post-traumatic stress disorder, unspecified F43.10 Generalized anxiety disorder F41.1 Suicidal ideation R45.857
[2025-03-26] MEDS: benzocaine 20% 7 gm 1 APPLIC MUCOUS MEM (17:18)
[2025-03-26] MEDS: OXcarbazepine 300 mg Tablet 600 MG PO (19:18)
[2025-03-26] MEDS: trazodone 50 mg Tablet PO (19:18)
[2025-03-26] MEDS: prazosin 1 mg Capsule PO (19:18)
[2025-03-26 19:50] VITALS: BP 123/82; PULSE 76; RESP 18; TEMP 36.7; O2SAT 97
[2025-03-27 06:00] VITALS: BP 110/74; PULSE 94; RESP 18; O2SAT 98
[2025-03-27] MEDS: ziprasidone hcl 40 mg Capsule PO (06:28)
[2025-03-27] MEDS: fluticasone nasal spray 16gm Btl 1 SPRAY INTRANASAL (08:04)
[2025-03-27] MEDS: GUANFACINE 4 MG 4 EACH PO (08:04)
[2025-03-27] MEDS: OXcarbazepine 300 mg Tablet PO (08:04)
[2025-03-27] MEDS: naltrexone hcl 50 mg Tablet PO (08:05)
[2025-03-27] MEDS: metformin 500 mg Tablet PO (08:05)
[2025-03-27] MEDS: sertraline 100 mg Tablet 200 MG PO (08:05)
[2025-03-27] MEDS: lithium carbonate 300 mg Capsule PO (08:05)
[2025-03-27] MEDS: pantoprazole DR 40 mg Tablet PO (08:05)
[2025-03-27] MEDS: benztropine 1 mg Tablet PO (08:05)
[2025-03-27] MEDS: BuSPIRONE 10 mg Tablet PO ×2 (08:05→14:40)
[2025-03-27] MEDS: CLONazepam 0.5 mg Tablet PO (08:51)
[2025-03-27] MEDS: metoclopramide 10 mg Tablet 5 MG PO (11:15)
[2025-03-27] MEDS: acetaminophen 325 mg Tablet 650 MG PO (11:15)
--- NOTE | 2025-03-27 11:31 | P.NPUDS_ITS ---
Diagnoses at Discharge Discharge Diagnosis (1) Major depressive disorder, recurrent, severe with psychotic symptoms: Status: Resolved (2) Borderline personality disorder in adolescent: Status: Acute (3) Post-traumatic stress disorder, unspecified: Status: Acute (4) Generalized anxiety disorder: Status: Acute (5) Suicidal ideation: Status: Resolved Reason for Visit Reason for Visit: SI Involuntary Hold Information Hold Status: Legal Status: Active Guardianship 96 Hour Hold: 96 Hour Involuntary Admission: Yes Other Hold: Hold End Date: 11/02/24 Mental Status Exam MSE Comments: This is an obese versus obese white female in hospital scrubs with limited grooming and eye contact. No abnormal movements except for mild psychomotor retardation. There were no new scratch griffin appreciated in left wrist. Mood was described as better, I want to go home. Her affect was restricted in range. Thought process was linear, but superficial. Thought content: Patient endorsed having suicidal ideation, and denied homicidal ideation, there were no delusions reported or noted, she denied any auditory or visual hallucinations. Attention and concentration appeared intact and memory was somewhat reliable but no more formally tested. She is alert and oriented to person and place. Insight and judgment are limited versus impaired and impulse control is impaired. Intelligen ce appeared commensurate with mild cognitive impairment. Discharge Data Studies Completed and Pending: Completed Studies During Hospitalization Category Date Time Status XR abdomen 1V* 74 018 Stat Exams 03/22/25 19:12 Completed Radiology Impressions Abdomen X-Ray 03/22/25 19:12 IMPRESSION: 1. No plain film evidence of acute int ra-abdominal or pelvic process. 2. No definitive radiopaque foreign [place] dy identified. Laboratory Results WBC 8.79 10^3/uL (4.5 -13.0) 03/22/25 08:52 RBC 4.56 10^6/uL (3.8 5-5.65) 03/22/25 08:52 Hgb 12.70 g/dL (12.4- 14.8) 03/22/25 08:52 Hct 39.3 % (36-47) 03/22/25 08:52 MCV 86.2 fl (85-98) 03/22/25 08:52 MCH 27.9 pg (27-33) 03/22/25 08:52 MCHC 32.3 g/dL (30-55) 03/22/25 08:52 RDW 13.8 % (12.1-15.1 ) 03/22/25 08:52 Plt Count 199 10^3/cmm (157 -399) 03/22/25 08:52 MPV 11.7 fL (7.4-10.4 ) H 03/22/25 08:52 Neut % (Auto) 66.8 % 03/22/25 08:52 Lymph % (Auto) 24.1 % 03/22/25 08:52 [place] % (Auto) 5.9 % 03/22/25 08:52 Eos % (Auto) 2.3 % 03/22/25 08:52 Baso % (Auto) 0.6 % 03/22/25 08:52 Neut # (Auto) 5.87 10^3/uL (1.8 -8.0) 03/22/25 08:52 Lymph # (Auto) 2.1 10^3/uL (1.5- 6.5) 03/22/25 08:52 [place] # (Auto) 0.5 10^3/uL (0.2- 0.9) 03/22/25 08:52 Eos # (Auto) 0.2 10^3/uL (0.0- 0.8) 03/22/25 08:52 Baso # (Auto) 0.1 10^3/uL (0.0- 0.1) 03/22/25 08:52 Nucleated RBC % (a uto) 0 % 03/22/25 08:52 Nucleated RBCs # 0.0 /100WBC 03/22/25 08:52 Sodium 140 mmol/L (136-1 45) 03/22/25 08:52 Potassium 3.9 mmol/L (3.5-5 .1) 03/22/25 08:52 Chloride 104 mmol/L (98-10 7) 03/22/25 08:52 Carbon Dioxide 24 mmol/L (22-29) 03/22/25 08:52 Anion Gap 15.9 (5-19) 03/22/25 08:52 BUN 9 mg/dL (6-20) 03/22/25 08:52 Creatinine 0.8 mg/dL (0.5-0. 9) 03/22/25 08:52 GFR Calculation 91.4 mL/min (90-1 30) 03/22/25 08:52 Glucose 135 mg/dL (65-115 ) H 03/22/25 08:52 POC Glucose 127 mg/dL (70-110 ) H 03/21/25 15:33 Fasting Glucose 86 mg/dL (74-109) 03/23/25 06:10 Calculated Osmolal ity 291 mOsm/kg (285- 295) 03/22/25 08:52 Calcium 9.6 mg/dL (8.5-10 .5) 03/22/25 08:52 Total Bilirubin 0.2 mg/dL (0.15-1 .2) 03/22/25 08:52 AST 31 U/L (0-32) 03/22/25 08:52 ALT 49 U/L (0-33) H 03/22/25 08:52 Alkaline Phosphata se 158 U/L (35-105) H 03/22/25 08:52 Total Protein 6.9 g/dL (6.6-8.7 ) 03/22/25 08:52 Albumin 4.3 g/dL (3.5-5.2 ) 03/22/25 08:52 Globulin 2.6 g/dL (1.3-4.6 ) 03/22/25 08:52 TSH 1.23 uIU/mL (0.27 -4.20) 03/22/25 08:52 Free T4 0.83 ng/dL (0.82- 1.77) 03/22/25 08:52 Urine Color Yellow (Yellow) 03/16/25 22:05 Urine Appearance Clear (CLEAR) 03/16/25 22:05 Urine pH 7.0 (5-7) 03/16/25 22:05 Ur Specific Gravit y 1.025 (1.005-1.0 30) 03/16/25 22:05 Urine Protein Negative (Negati ve) 03/16/25 22:05 Urine Glucose (UA) Negative (Normal ) 03/16/25 22:05 Urine Ketones Trace (Negative) 03/16/25 22:05 Urine Blood Negative (Negati ve) 03/16/25 22:05 Urine Nitrate Negative (Negati ve) 03/16/25 22:05 Urine Bilirubin Negative (Negati ve) 03/16/25 22:05 Urine Urobilinogen 1.0 mg/dL (Negati ve) 03/16/25 22:05 Ur Leukocyte [place] a[place] 1+ (Negative) A 03/16/25 22:05 Urine RBC 3-5 /hpf (0-2) 03/16/25 22:05 Urine WBC 21-50 /hpf (0-5) H 03/16/25 22:05 Ur Squamous Epith Cells 6-10 /hpf (0-5) 03/16/25 22:05 Amorphous Sediment Not Reportable 03/16/25 22:05 Urine Bacteria 3+ /hpf (NONE) H 03/16/25 22:05 Hyaline Casts 0-4 /lpf H 03/16/25 22:05 Salicylates < 0.3 mg/dL (3-10 ) L 03/16/25 22:23 Urine Opiates Scre en Negative ng/mL (N egative) 03/16/25 22:05 Acetaminophen < 5.0 ug/mL (10-3 0) L 03/16/25 22:23 Ur Barbiturates Sc reen Negative ng/mL (N egative) 03/16/25 22:05 Ur Phencyclidine S crn Negative ng/mL (N egative) 03/16/25 22:05 Ur Amphetamines Sc reen Negative ng/mL (N egative) 03/16/25 22:05 U Benzodiazepines Scrn Positive ng/mL (N egative) H 03/16/25 22:05 [place] 0.7 mmol/L (0.6-1 .2) 03/22/25 08:52 Urine Cocaine Scre en Negative ng/mL (N egative) 03/16/25 22:05 U Marijuana (THC) Screen Negative ng/mL (N egative) 03/16/25 22:05 Vitals: Last Vital Signs Temp 98.0 F 03/26/25 19:50 Pulse 94 03/27/25 06:00 Resp 18 03/27/25 06:00 BP 110/74 03/27/25 06:00 Pulse Ox 98 03/27/25 06:00 O2 Del Method Room Air 03/27/25 06:00 Discharge Plan Discharge Patient Disposition: Home Condition: Stable Prescriptions: New clonazepam 0.5 mg Tablet 0.5 mg PO BID PRN (Reason: Anxiety) 30 Days Qty: 60 1RF buspirone 10 mg Tablet 10 mg PO TID 30 Days Qty: 90 1RF naltrexone 50 mg Tablet 50 mg PO DAILY 30 Days Qty: 30 1RF metoclopramide HCl 10 mg Tablet 5 mg PO Q6H PRN (Reason: nausea) 30 Days Qty: 60 1RF ziprasidone HCl 40 mg Capsule 40 mg PO 0700,1700 30 Days Qty: 60 1RF Continued benztropine 1 mg tablet 1 mg PO BID Qty: 60 5RF guanfacine 4 mg tablet extended release 24 hr 4 mg PO DAILY Qty: 30 5RF hydroxyzine pamoate 100 mg capsule 100 mg PO TID PRN (Reason: sleep or anxiety) Qty: 90 5RF omeprazole 20 mg capsule,delayed release(DR/EC) 20 mg PO DAILY fluticasone propionate 50 mcg/actuation spray,suspension 1 spray INTRANASAL DAILY metformin 500 mg tablet 500 mg PO BID 30 Days Qty: 60 0RF Rx Instructions: WITH MEALS trazodone 50 mg tablet 50 mg PO DAILY PRN (Reason: sleep) 30 Days Qty: 30 1RF prazosin 1 mg Capsule 1 mg PO BEDTIME 30 Days Qty: 30 1RF sertraline 100 mg Tablet 200 mg PO DAILY 30 Days Qty: 60 1RF lithium carbonate 300 mg capsule 300 mg PO BID 30 Days Qty: 60 1RF Changed oxcarbazepine 300 mg Tablet 300 mg PO BID 30 Days Qty: 60 1RF Discontinued haloperidol decanoate [Haldol Decanoate] 50 mg/mL solution 50 mg IM .q 30 days 30 Days Qty: 1 3RF buspirone 5 mg tablet 5 mg PO TID PRN (Reason: anxiety) Qty: 90 3RF oxcarbazepine 300 mg Tablet 600 mg PO 2100 30 Days Qty: 60 0RF Discharge Orders: Discharge Order (Routine); Ordered 03/27/25 Ordered By: Andrade [place] Referrals: Antonieta Bradley MD [Primary Care Provider, Family Practice] Discharge Diet: Usual diet and Regular Discharge Activity: Resume usual activity Patient Instructions: Opioid Safety, Patient Portal & [place] Instructions Discharge Attestations NPU Time Spent in Discharge Care*: less than 30 min Specific Discharge Activities: Specific discharge activities: educating patient, discussing with porter sample case/social workers/dc planners, documenting/other paperwork and evaluating patient/reviewing data Coding Level of Care Code Acute Code for Chg Fwd Diagnoses Major depressive disorder, recurrent, severe with psychotic symptoms F33.3 Borderline personality disorder in adolescent F60.3 Post-traumatic stress disorder, unspecified F43.10 Generalized anxiety disorder F41.1 Suicidal ideation R45.851
[2025-03-27 14:00] VITALS: BP 105/75; PULSE 74; RESP 18; TEMP 36.7; O2SAT 100
[2025-03-27 14:51] VITALS: BP 105/75; PULSE 74; RESP 18; TEMP 36.7; O2SAT 100
== END 2025-03-27 15:38 | disposition home or self-care (01) | DRG 885 ==
LOC: ER 23:39 → NP 03-17 00:19
PROVIDERS: Emergency Medicine; Admitting Provider Psychiatry & Neurology Psychiatry; Emergency Provider Physician Assistant; PCP Family Medicine; Visit Provider Psychiatry & Neurology Psychiatry
DX: F33.3 Major depressive disorder, recurrent, severe with psychotic symptoms (principal); R45.851 Suicidal ideations; Z68.41 Body mass index [BMI] 40.0-44.9, adult; F60.3 Borderline personality disorder; F43.10 Post-traumatic stress disorder, unspecified; F41.1 Generalized anxiety disorder; E66.9 Obesity, unspecified; Z91.51 Personal history of suicidal behavior
CPT/HCPCS: 36415; 36416; 74018; 80053; 80178; 80306; 80307; 81001; 82947; 82962; 84439; 84443; 85025; 87086; 93005; 96372; 97150; 97165; 99285; J1200; J1630; J2060; J3486; J3490; J8597; J9999

== ENCOUNTER 2025-03-29 19:26 | Emergency (ER) | payer MEDICAID, SELFPAY ==
--- OUTSIDE RECORDS SUMMARY | 2020-02-14 06:33 | XMS_ITS | Continuity of Care Document ---
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 to obtain records of vaccines and bring to next visit with Suzie Merritt who will be the PCP , Discussed passive smoke exposure Advised vision and dental visits this yearNext WCC 1 year Related to Encntr for routine child health exam w/o abnormal findings Age appropriate anti cipatory guidance discussed (11-14 years) Related to Encntr for routine child health exam w/o abnormal findings Age appropriate diet discussed (-14 years) Related to Encntr for routine child health exam w/o abnormal findings Age appropriate safe ty discussed (11-14 years) Related to Encntr for routine child health exam w/o abnormal findings Oral Health Discussed (-14 yea rs) Related to Encntr for routine child health exam w/o abnormal findings Dietary management e ducation, guidance, and counseling Related to Encntr for routine child health exam w/o abnormal findings Patient advised about exercise R elated to Encntr for routine child health exam w/o abnormal findings Lifestyle education Related to D ental Examination Lifestyle education Related to D ental Examination Lifestyle education Related to D ental Examination Lifestyle education Related to D ental Examination Dietary counseling Related to RO UTIN CHILD HEALTH EXAM Physical activity counseling Rel ated to ROUTIN CHILD HEALTH EXAM Weight counseling Related to ROU TIN CHILD HEALTH EXAM Age approriate antic ipatory guidance discussed Related to routine infant/child health checkup Age appropriate safety discussed Related to routine infant/child health checkup Assessments Type Assessment Date No Information Patient Care Teams Name Effective Dates (start - stop) Status Members No Information
[2025-03-29 19:24] VITALS: BP 128/65; PULSE 72; RESP 20; TEMP 37.4; O2SAT 97; BMI 40.4
[2025-03-29] MEDS: OLANZapine 5 mg ODT PO (19:55)
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
[2025-03-29 20:02] LABS: Bilirubin Urine Negative (Negative); Blood Urine Negative (Negative); Glucose Urine UA Negative (Normal); Ketones Urine Trace (Negative); Leukocyte Esterase Urine 2+ (Negative); Nitrate Urine Negative (Negative); Protein Urine Negative (Negative); Specific Gravity, Urine 1.022 (1.005-1.030); Urine Appearance Cloudy (CLEAR); Urine Color Yellow (Yellow)
[2025-03-29 20:04] LABS: HCG Qualitative Urine. Negative (Negative)
[2025-03-29 20:08] LABS: Add Urine Microscopic? YES; Bacteria Urine 4+ /hpf; Hyaline Casts Urine 2.05 /lpf; RBC Urine 0-2 /hpf (0-2); WBC Urine 21-50 /hpf (0-5)
[2025-03-29 20:09] LABS: Amphetamines Screen Urine Negative (Negative); Barbiturates Screen Urine Negative (Negative); Benzodiazepines Screen Urine Positive (Negative); Cocaine Screen Urine Negative (Negative); Opiate Screen Urine Negative (Negative); PCP Screen Urine Negative (Negative); THC Screen Urine Negative (Negative)
[2025-03-29 20:13] LABS: Add Urine Culture? Yes
[2025-03-29 20:45] LABS: Basophils # 0.1 10^3/uL (0.0-0.1); Basophils % 0.7 %; Eosinophils # 0.1 10^3/uL (0.0-0.8); Eosinophils % 1.3 %; Hematocrit 38.6 % (36-47); Lymphocytes # 2.4 10^3/uL (1.5-6.5); Lymphocytes % 27.1 %; Mean Corpuscular HGB Conc 31.9 g/dL (30-55); Mean Corpuscular Hemoglobin 27.9 pg (27-33); Mean Corpuscular Volume 87.5 fl (85-98); Mean Platelet Volume 10.1 fL (7.4-10.4); Monocytes # 0.6 10^3/uL (0.2-0.9); Monocytes % 6.1 %; Neutrophils # 5.76 10^3/uL (1.8-8.0); Neutrophils % 64.2 %; Nucleated Red Blood Cells % 0 %; Platelet Count 316 10^3/cmm (157-399); Red Blood Count 4.41 10^6/uL (3.85-5.65); Red Cell Distribution Width 13.9 % (12.1-15.1); White Blood Count 8.97 10^3/uL (4.5-13.0)
[2025-03-29 21:00] LABS: Alanine Aminotransferase 40 U/L (0-33); Albumin Level 4.4 g/dL (3.5-5.2); Alkaline Phosphatase 138 U/L (35-105); Anion Gap 15.8 (5-19); Aspartate Amino Transferase 25 U/L (0-32); Blood Urea Nitrogen 9 mg/dL (6-20); Calcium 9.3 mg/dL (8.5-10.5); Carbon Dioxide 23 mmol/L (22-29); Chloride 105 mmol/L (98-107); Globulin 2.7 g/dL (1.3-4.6); Glomerular Filtration Rate 91.4 mL/min (90-130); Glucose 96 mg/dL (65-115); Osmolality Calculated 289 mOsm/kg (285-295); Potassium 3.8 mmol/L (3.5-5.1); Sodium 140 mmol/L (136-145); Total Bilirubin 0.2 mg/dL (0.15-1.2); Total Protein 7.1 g/dL (6.6-8.7)
[2025-03-29 21:05] LABS: Acetaminophen < 5.0 ug/mL (10-30); Alcohol Level < 10 mg/dL (0-10); Salicylate < 0.3 mg/dL (3-10)
[2025-03-29 21:07] LABS: Lithium 0.4 mmol/L (0.6-1.2)
[2025-03-30] MEDS: ziprasidone hcl 60 mg Capsule PO (06:27)
[2025-03-30 06:29] VITALS: BP 106/67; PULSE 61; O2SAT 98
== END 2025-03-30 10:00 | disposition home or self-care (01) ==
PROVIDERS: Emergency Provider Physician Assistant; PCP Family Medicine
DX: R45.851 Suicidal ideations (principal); F60.3 Borderline personality disorder
CPT/HCPCS: 80053; 80178; 80306; 80307; 81001; 81025; 85025; 87086; 99283; J9999

== ENCOUNTER → 2025-05-20 11:27 | Outpatient (BNVA) | payer OTHER, SELFPAY | PROVIDERS: PCP Family Medicine | DX: Z79.899 Other long term (current) drug therapy (principal) | CPT/HCPCS: 80178 ==

== ENCOUNTER → 2025-07-05 09:45 | Outpatient (BNVA) | payer OTHER, SELFPAY | PROVIDERS: PCP Family Medicine | DX: F60.3 Borderline personality disorder (principal) | CPT/HCPCS: 80178 ==

== ENCOUNTER 2025-08-18 17:18 | Inpatient (IN) | payer MEDICAID, SELFPAY ==
--- OUTSIDE RECORDS SUMMARY | 2024-07-03 04:00 | XMS_ITS ---
Author Organization [facility] Accounts Recei vable Address [address] [place] [address] Care Team Providers Care Talent Scout Name Role Phone Divina Mendoza Primary Care Provider [phone] Nathan Lyon [phone] REASON FOR VISIT redo 28-MOD, redo 19-M Social History Sex Assigned At : Social History Observation Description Sex Assigned At Female Encounters Encounter Location Date Provider Diagnosis [facility] Dental [address] [address] 07/03/2024 Nathan Lyon Plan Of Treatment No Information Progress Notes * Yari POLLOCK NDOB: (20 yo F)Acc No.[id number]:07/03/2024 Progress Note Patient: Yari Palma External MRN:[id number] Provider: Rere Vieyra DDS :2005 A ge:18 Y S ex:Female Date:07/03/2024 Address[address], [phone] Pcp:Divina Mendoza Patient's Default Facility:[facility] Subjective: * Chief Complaints: * r dustin 28-MOD, redo 19-M Billing Information: * Procedure Codes: * Electronic signature of Kvng Lyon DDS on 08/18/2025 at 05:23 PM CLAY ROASTER Sign off status: Pending * Provider: Rere Vieyra DDS Date: 1 Generated for Dong rivera/German/Ruchi on: 10/18/2024 05:23 PM CLAY ROASTER
--- OUTSIDE RECORDS SUMMARY | 2024-07-23 07:00 | XMS_ITS ---
Author Organization [facility] Accounts Recei vable Address [address] [place] [address] Care Team Providers Care Sewage Plant Supervisor Name Role Phone Divina Mendoza Primary Care Provider [phone] Nathan Lyon [phone] REASON FOR VISIT 28-MOD, redo 19-M Social History Sex Assigned At : Social History Observation Description Sex Assigned At Female Encounters Encounter Location Date Provider Diagnosis [facility] Dental [address] [address] 07/23/2024 Nathan Lyon Plan Of Treatment No Information Progress Notes * Yari POLLOCK NDOB: (20 yo F)Acc No.[id number]:07/23/2024 Progress Note Patient: Yari Palma External MRN:[id number] EC Provider: Rere Vieyra DDS :2005 A ge:18 Y S ex:Female Date:07/23/2024 Address:[address], [phone] Pcp:Divina Mendoza Patient's Default Facility:[facility] Subjective: * Chief Complaints: * 2 8-MOD, redo 19-M Billing Information: * Procedure Codes: * Electronic signature of Kvng Lyon DDS on 08/18/2025 at 05:23 PM WORKERS' COMPENSATION CLAIMS EXAMINER Sign off status: Pending * Provider: Rere Vieyra DDS Date: Generated for Dong rivera/German/Ruchi on: 10/18/2024 05:23 PM WORKERS' COMPENSATION CLAIMS EXAMINER
--- OUTSIDE RECORDS SUMMARY | 2024-09-10 07:00 | XMS_ITS ---
Author Organization [facility] Accounts Recei vable Address [address] [place] [address] Care Team Providers Care Rice Drier Operator Name Role Phone Divina Mendoza Primary Care Provider Nathan Lyon [phone] Social History Sex Assigned At : Social History Observation Description Sex Assigned At Female Encounters Encounter Location Date Provider Diagnosis [facility] Dental [address] [address] 09/10/2024 Nathan Lyon Plan Of Treatment No Information Progress Notes * Yari POLLOCK NDOB: (20 yo F)Acc No.[id number]:09/10/2024 Progress Note Patient: Yari Palma External MRN:[id number] Provider: Rere Vieyra DDS :2005 A ge:19 Y S ex:Female Date:09/10/2024 Address:[address], [id number] Pcp:Divina Mendoza Patient's Default Facility:[facility] * Electronic signature of Kvng Lyon DDS on 08/18/2025 at 05:23 PM SOILS TECHNICIAN Sign off status: Pending * Provider: Rere Vieyra DDS Date: 11/11/2023 Generated for Silviai miguel/German/eTransmitting on: 10/18/2024 05:23 PM SOILS TECHNICIAN
--- OUTSIDE RECORDS SUMMARY | 2024-10-04 07:00 | XMS_ITS ---
Author Organization [facility] Accounts Recei vable Address [address] [place] [address] Care Team Providers Care Licensed Massage Practitioner Name Role Phone Divina Mendoza Primary Care Provider Nathan Lyon REASON FOR VISIT #28 MOD, #19 M redo Social History Sex Assigned At : Social History Observation Description Sex Assigned At Female Encounters Encounter Location Date Provider Diagnosis [facility] Dental [address] [address] 10/04/2024 Nathan Lyon Plan Of Treatment No Information Progress Notes * Yari POLLOCK NDOB: (20 yo F)Acc No.[id number]:10/04/2024 Progress Note Patient: Yari Palma External MRN:[id number] EC Provider: Rere Vieyra DDS :2005 A ge:19 Y S ex:Female Date:10/04/2024 Address:[address], [phone] Pcp:Divina Mendoza Patient's Default Facility:[facility] Subjective: * Chief Complaints: * # 28 MOD, #19 M redo Billing Information: * Procedure Codes: * Electronic signature of Kvng Lyon DDS on 08/18/2025 at 05:22 PM STRATEGIC INSIGHTS LEAD Sign off status: Pending * Provider: Rere Vieyra DDS Date: 0 10/04/2024 Generated for Dong Fu on: 1 10/18/2024 05:22 PM STRATEGIC INSIGHTS LEAD
[2025-08-18 17:18] VITALS: BP 142/79; PULSE 81; RESP 16; TEMP 36.7; O2SAT 99; BMI 34.9
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
--- OUTSIDE RECORDS SUMMARY | 2025-08-18 17:24 | XMS_ITS | Patient Health Record ---
Author Organization [facility] Address [address] [place], [place] [id number] Care Team Providers Care Smog Technician Name Role Phone JUNE Kline Primary Care Provider [phone] Reason For Referral No Information Social History Sex Assigned At : Social History Observation Description Sex Assigned At Female Plan Of Treatment No Information Insurance Providers Payer Name Payer Address Payer Phone Subscriber Number Group Number Insured Name Patient Relationship to Insured Coverage Start Date Coverage End Date [employer] [address] [address] [place] [address] [id number] Yari Pollock Self - patient is the insured [employer] [address] [place] [address] [id number] Yari Pollock Self - patient is the insured
--- NOTE | 2025-08-18 17:49 | ECG_ITS ---
[facility] Test Date: 2025-08-18 Pat Name: Yari Pollock Department: Room: Gender: Female Fisheries Specialist: : 2005 Requested By: Cathie Ac Order Number: [id number] Lata MD: Alec Emanuel M.D. Measurements Intervals [place] Rate: 77 P: 60 MS: 169 QRS: 55 QRSD: 85 T: 34 QT: 368 QTc: 418 Interpretive Statements SINUS RHYTHM NONSPECIFIC T-WAVE ABNORMALITY Compared to ECG 03/16/2025 22:35:24 NO SIGNIFICANT CHANGE Electronically Signed On 08-18-2025 17:50:58 COAL TRIMMER MACHINE OPERATOR by Alec Emanuel M.D. [email or web address]
[2025-08-18 17:53] LABS: Hematocrit 41.5 % (36-47); Hemoglobin 12.60 g/dL (11.27-16.99); Mean Corpuscular HGB Conc 30.4 g/dL (30-55); Mean Corpuscular Hemoglobin 28.8 pg (27-33); Mean Corpuscular Volume 95.0 fl (85-98); Nucleated Red Blood Cells % 0 %; Platelet Count 226 10^3/cmm (157-399); Red Blood Count 4.37 10^6/uL (3.85-5.65); White Blood Count 7.72 10^3/uL (3.29-11.43)
--- NOTE | 2025-08-18 17:57 | W.ED.PSYCHS ---
Documented by User: TRINITY Hernandez 08/18/25 21:57 HPI - Psych General: Chief Complaint: ER Hold Stated Complaint: si Time Seen by Provider: 08/18/25 17:21 History of Present Illness: Patient is a 20-year-old female with psychiatric diagnosis, skipped her medication today, felt suicidal to this afternoon. She had a plan of wrapping a blanket around her neck and strangling herself. See affidavit. Associated symptoms: Reports depression and suicidal ideation Related Data Home Medications ?Medication ?Instructions ?Recorded ?Confirmed famotidine 20 mg tablet 20 mg PO BID 04/16/25 07/30/25 promethazine 12.5 mg tablet 12.5 mg PO Q6H PRN 04/16/25 07/30/25 tirzepatide (weight loss) 2.5 mg SUBCUT 07/05/25 07/30/25 mg/0.5 mL subcutaneous pen injector (Zepbound) Previous Rx's ?Medication ?Instructions ?Recorded haloperidol decanoate 100 mg/mL 100 mg IM .monthly #1 mL 07/05/25 intramuscular solution (Haldol Decanoate) benztropine 1 mg tablet 1 mg PO BID #60 tabs 07/12/25 bupropion HCl 300 mg 24 hr tablet, 300 mg PO QAM #30 tabs 07/12/25 extended release (Wellbutrin XL) buspirone 5 mg tablet 5 mg PO TID PRN anxiety #90 tabs 07/12/25 haloperidol 5 mg tablet 5 mg PO TID #90 tabs 07/12/25 lithium carbonate 300 mg capsule 300 mg PO .in AM #30 caps 07/12/25 lithium carbonate 600 mg capsule 600 mg PO .in PM #30 caps 07/12/25 naltrexone 50 mg tablet 50 mg PO DAILY 30 days #30 tabs 07/12/25 oxcarbazepine 300 mg tablet 300 mg PO BID 30 days #60 tabs 07/12/25 ziprasidone HCl 20 mg capsule 40 mg (2 x 20 mg) PO DAILY #30 caps 07/12/25 (Geodon) Allergies Allergy/AdvReac Type Severity Reaction Status Date / Time divalproex sodium (From Allergy makes me Verified 07/30/25 12:25 Depakote) stay awake for days at a time, no appetite ondansetron (From Zofran) Allergy hard time Verified 07/30/25 12:25 breathing Review of Systems General: Reports: 10 or more systems reviewed and unremarkable except in HPI and below Const: Denies: fever(s) or chills Eyes: Denies: change in vision or blurry vision ENMT: Denies: throat pain or mouth pain Card: Denies: chest pain or palpitations Resp: Denies: dyspnea or productive cough GI: Denies: abdominal pain, nausea or vomiting : Denies: flank pain or difficulty voiding Musc: Denies: neck pain or back pain Skin/Breast: Denies: rash or pruritus Neuro: Denies: headache(s) or numbness in extremities Psych: Reports: anxiety, depression and suicidal ideation Endo: Denies: polyuria or polydipsia Corona/Lymph: Denies: easy bruising or easy bleeding PFSH ED PFSH: Medical History (Updated 08/18/25 @ 21:57 by TRINITY Hernandez) Bipolar disorder, current episode mixed, severe, with psychotic features Psychiatric care Physical Exam Const: COMMON NORMALS: no acute distress, average body habitus and patient oriented x3 HENMT: COMMON NORMALS: normocephalic and atraumatic HEAD & SCALP: normocephalic and atraumatic Neck/C-Spine: COMMON NORMALS: full ROM and no lymphadenopathy Chest: COMMONS NORMALS: normal inspection of the chest and normal palpation of entire chest wall Resp: COMMON NORMALS: normal respiratory effort and clear to auscultation bilaterally AUSCULTATION: clear to auscultation bilaterally Cardio: COMMON NORMALS: regular rate and regular rhythm RATE: regular rate RHYTHM: regular rhythm : COMMON NORMALS: Yes no CVA tenderness BLADDER/KIDNEY EXAM: Yes no CVA tenderness Back/Pelvis: COMMON NORMALS: no CVA tenderness Extremity: COMMON NORMALS: normal to inspection, full ROM and capillary refill normal Neuro: COMMON NORMALS: patient oriented x3 Psych: COMMON NORMALS: mental status grossly normal, Normal thought process present and speech normal ATTITUDE: Yes calm ACTIVITY/MOTOR BEHAVIOR: Yes appropriate eye contact SPEECH: Yes normal speech THOUGHT PROCESS: Normal thought process present THOUGHT CONTENT: Yes Suicidality present ATTENTION/CONCENTRATION: Yes attention grossly intact and Yes concentration grossly intact MEMORY/COGNITION: Yes memory grossly intact Skin: COMMON NORMALS: no rashes or lesions noted and no wounds GENERAL SKIN EXAM: no rashes or lesions noted Course Consultations: Consultation #1: Contacted Dr. Madrid. He will call back. Consultation #2: Dr. Madrid accepted. (He did attempt to call back, however was on with [facility] on another patient) Vital Signs: Vital signs: Vital Signs Temperature 98.1 F 08/18/25 17:18 Pulse Rate 75 08/19/25 01:02 Respiratory Rate 16 08/19/25 01:02 Blood Pressure 139/71 08/19/25 01:02 Pulse Oximetry 99 08/19/25 01:02 Oxygen Delivery Me thod Room Air 08/19/25 01:02 MDM - Psych Medical Decision Making Patient is a 20-year-old female with PTSD, bipolar disorder, borderline personality disorder, suicide ideation, previous psychiatric care, that presented to the emergency room due to suicide ideations. She states she only missed 1 dose of her medication today. She had a plan of strangling herself with that sheet. Will contact Dr. Madrid for admission. Lab Data 08/18/25 17:47 08/18/25 17:47 Laboratory Results WBC 7.72 10^3/uL (3.29-11.43) 08/18/25 17:47 RBC 4.37 10^6/uL (3.85-5.65) 08/18/25 17:47 Hgb 12.60 g/dL (11.27-16.99) 08/18/25 17:47 Hct 41.5 % (36-47) 08/18/25 17:47 MCV 95.0 fl (85-98) 08/18/25 17:47 MCH 28.8 pg (27-33) 08/18/25 17:47 MCHC 30.4 g/dL (30-55) 08/18/25 17:47 RDW 12.6 % (12.1-15.1) 08/18/25 17:47 Plt Count 226 10^3/cmm (157-399) 08/18/25 17:47 MPV 11.1 fL (7.4-10.4) H 08/18/25 17:47 Neut % (Auto) 66.4 % 08/18/25 17:47 Lymph % (Auto) 26.9 % 08/18/25 17:47 [place] % (Auto) 5.2 % 08/18/25 17:47 Eos % (Auto) 0.6 % 08/18/25 17:47 Baso % (Auto) 0.8 % 08/18/25 17:47 Neut # (Auto) 5.12 10^3/uL (1.8-7.7) 08/18/25 17:47 Lymph # (Auto) 2.1 10^3/uL (0.8-4.8) 08/18/25 17:47 [place] # (Auto) 0.4 10^3/uL (0.2-0.9) 08/18/25 17:47 Eos # (Auto) 0.1 10^3/uL (0.0-0.8) 08/18/25 17:47 Baso # (Auto) 0.1 10^3/uL (0.0-0.1) 08/18/25 17:47 Nucleated RBC % (auto) 0 % 08/18/25 17:47 Nucleated RBCs # 0.0 /100WBC 08/18/25 17:47 Sodium 139 mmol/L (136-145) 08/18/25 17:47 Potassium 4.2 mmol/L (3.5-5.1) 08/18/25 17:47 Chloride 108 mmol/L (98-107) H 08/18/25 17:47 Carbon Dioxide 20 mmol/L (22-29) L 08/18/25 17:47 Anion Gap 15.2 (5-19) 08/18/25 17:47 BUN 11 mg/dL (6-20) 08/18/25 17:47 Creatinine 0.8 mg/dL (0.5-0.9) 08/18/25 17:47 GFR Calculation 90.5 mL/min (90-130) 08/18/25 17:47 Glucose 91 mg/dL (65-115) 08/18/25 17:47 Calculated Osmolality 287 mOsm/kg (285-295) 08/18/25 17:47 Calcium 9.4 mg/dL (8.5-10.5) 08/18/25 17:47 Total Bilirubin 0.2 mg/dL (0.15-1.2) 08/18/25 17:47 AST 23 U/L (0-32) 08/18/25 17:47 ALT 43 U/L (0-33) H 08/18/25 17:47 Alkaline Phosphatase 147 U/L (35-105) H 08/18/25 17:47 Total Protein 6.8 g/dL (6.6-8.7) 08/18/25 17:47 Albumin 4.5 g/dL (3.5-5.2) 08/18/25 17:47 Globulin 2.3 g/dL (1.3-4.6) 08/18/25 17:47 HCG, Qual Negative (Negative) 08/18/25 19:21 Salicylates < 0.3 mg/dL (3-10) L 08/18/25 17:47 Urine Opiates Screen Negative ng/mL (Negative) 08/18/25 19:21 Acetaminophen < 5.0 ug/mL (10-30) L 08/18/25 17:47 Ur Barbiturates Screen Negative ng/mL (Negative) 08/18/25 19:21 Ur Phencyclidine Scrn Negative ng/mL (Negative) 08/18/25 19:21 Ur Amphetamines Screen Negative ng/mL (Negative) 08/18/25 19:21 U Benzodiazepines Scrn Negative ng/mL (Negative) 08/18/25 19:21 Urine Cocaine Screen Negative ng/mL (Negative) 08/18/25 19:21 U Marijuana (THC) Screen Negative ng/mL (Negative) 08/18/25 19:21 Ethyl Alcohol < 10 mg/dL (0-10) 08/18/25 17:47 No radiology studies performed this visit EKG Data EKG 1: Interpretation: Normal sinus rhythm, normal axis Discharge Plan Discharge Patient Disposition: Xfer Psychiatric Hosp Clinical Impression: Suicidal ideation Condition: Stable Coding Level of Care Code ED Scheduling Coordinator for Chg Fwd Documented by User: Jason Case DO 08/19/25 01:27 HPI - Psych General: Chief Complaint: ER Hold Stated Complaint: si Time Seen by Provider: 08/18/25 17:21 Related Data Home Medications ?Medication ?Instructions ?Recorded ?Confirmed famotidine 20 mg tablet 20 mg PO BID 04/16/25 07/30/25 promethazine 12.5 mg tablet 12.5 mg PO Q6H PRN 04/16/25 07/30/25 tirzepatide (weight loss) 2.5 mg SUBCUT 07/05/25 07/30/25 mg/0.5 mL subcutaneous pen injector (Zepbound) Previous Rx's ?Medication ?Instructions ?Recorded haloperidol decanoate 100 mg/mL 100 mg IM .monthly #1 mL 07/05/25 intramuscular solution (Haldol Decanoate) benztropine 1 mg tablet 1 mg PO BID #60 tabs 07/12/25 bupropion HCl 300 mg 24 hr tablet, 300 mg PO QAM #30 tabs 07/12/25 extended release (Wellbutrin XL) buspirone 5 mg tablet 5 mg PO TID PRN anxiety #90 tabs 07/12/25 haloperidol 5 mg tablet 5 mg PO TID #90 tabs 07/12/25 lithium carbonate 300 mg capsule 300 mg PO .in AM #30 caps 07/12/25 lithium carbonate 600 mg capsule 600 mg PO .in PM #30 caps 07/12/25 naltrexone 50 mg tablet 50 mg PO DAILY 30 days #30 tabs 07/12/25 oxcarbazepine 300 mg tablet 300 mg PO BID 30 days #60 tabs 07/12/25 ziprasidone HCl 20 mg capsule 40 mg (2 x 20 mg) PO DAILY #30 caps 07/12/25 (Geodon) Allergies Allergy/AdvReac Type Severity Reaction Status Date / Time divalproex sodium (From Allergy makes me Verified 07/30/25 12:25 Depakote) stay awake for days at a time, no appetite ondansetron (From Zofran) Allergy hard time Verified 07/30/25 12:25 breathing PFSH ED PFSH: Medical History (Updated 08/18/25 @ 21:57 by TRINITY Hernandez) Bipolar disorder, current episode mixed, severe, with psychotic features Psychiatric care Course Vital Signs: Vital signs: Vital Signs Temperature 98.1 F 08/18/25 17:18 Pulse Rate 75 08/19/25 01:02 Respiratory Rate 16 08/19/25 01:02 Blood Pressure 139/71 11/17/25 01:02 Pulse Oximetry 99 08/19/25 01:02 Oxygen Delivery Me thod Room Air 08/19/25 01:02 MDM - Psych Medical Decision Making Patient is a 20-year-old female with PTSD, bipolar disorder, borderline personality disorder, suicide ideation, previous psychiatric care, that presented to the emergency room due to suicide ideations. She states she only missed 1 dose of her medication today. She had a plan of strangling herself with that sheet. Will contact Dr. Madrid for admission. This patient was originally seen by Ms. Osorio PA-C. I agree with her history, evaluation, and management. Lab Data 08/18/25 17:47 08/18/25 17:47 Laboratory Results WBC 7.72 10^3/uL (3.29-11.43) 08/18/25 17:47 RBC 4.37 10^6/uL (3.85-5.65) 08/18/25 17:47 Hgb 12.60 g/dL (11.27-16.99) 08/18/25 17:47 Hct 41.5 % (36-47) 08/18/25 17:47 MCV 95.0 fl (85-98) 08/18/25 17:47 MCH 28.8 pg (27-33) 08/18/25 17:47 MCHC 30.4 g/dL (30-55) 08/18/25 17:47 RDW 12.6 % (12.1-15.1) 08/18/25 17:47 Plt Count 226 10^3/cmm (157-399) 08/18/25 17:47 MPV 11.1 fL (7.4-10.4) H 08/18/25 17:47 Neut % (Auto) 66.4 % 08/18/25 17:47 Lymph % (Auto) 26.9 % 08/18/25 17:47 [place] % (Auto) 5.2 % 08/18/25 17:47 Eos % (Auto) 0.6 % 08/18/25 17:47 Baso % (Auto) 0.8 % 08/18/25 17:47 Neut # (Auto) 5.12 10^3/uL (1.8-7.7) 08/18/25 17:47 Lymph # (Auto) 2.1 10^3/uL (0.8-4.8) 08/18/25 17:47 [place] # (Auto) 0.4 10^3/uL (0.2-0.9) 08/18/25 17:47 Eos # (Auto) 0.1 10^3/uL (0.0-0.8) 08/18/25 17:47 Baso # (Auto) 0.1 10^3/uL (0.0-0.1) 08/18/25 17:47 Nucleated RBC % (auto) 0 % 08/18/25 17:47 Nucleated RBCs # 0.0 /100WBC 08/18/25 17:47 Sodium 139 mmol/L (136-145) 08/18/25 17:47 Potassium 4.2 mmol/L (3.5-5.1) 08/18/25 17:47 Chloride 108 mmol/L (98-107) H 08/18/25 17:47 Carbon Dioxide 20 mmol/L (22-29) L 08/18/25 17:47 Anion Gap 15.2 (5-19) 08/18/25 17:47 BUN 11 mg/dL (6-20) 08/18/25 17:47 Creatinine 0.8 mg/dL (0.5-0.9) 08/18/25 17:47 GFR Calculation 90.5 mL/min (90-130) 08/18/25 17:47 Glucose 91 mg/dL (65-115) 08/18/25 17:47 Calculated Osmolality 287 mOsm/kg (285-295) 08/18/25 17:47 Calcium 9.4 mg/dL (8.5-10.5) 08/18/25 17:47 Total Bilirubin 0.2 mg/dL (0.15-1.2) 08/18/25 17:47 AST 23 U/L (0-32) 08/18/25 17:47 ALT 43 U/L (0-33) H 08/18/25 17:47 Alkaline Phosphatase 147 U/L (35-105) H 08/18/25 17:47 Total Protein 6.8 g/dL (6.6-8.7) 08/18/25 17:47 Albumin 4.5 g/dL (3.5-5.2) 08/18/25 17:47 Globulin 2.3 g/dL (1.3-4.6) 08/18/25 17:47 HCG, Qual Negative (Negative) 08/18/25 19:21 Salicylates < 0.3 mg/dL (3-10) L 08/18/25 17:47 Urine Opiates Screen Negative ng/mL (Negative) 08/18/25 19:21 Acetaminophen < 5.0 ug/mL (10-30) L 08/18/25 17:47 Ur Barbiturates Screen Negative ng/mL (Negative) 08/18/25 19:21 Ur Phencyclidine Scrn Negative ng/mL (Negative) 08/18/25 19:21 Ur Amphetamines Screen Negative ng/mL (Negative) 08/18/25 19:21 U Benzodiazepines Scrn Negative ng/mL (Negative) 08/18/25 19:21 Urine Cocaine Screen Negative ng/mL (Negative) 08/18/25 19:21 U Marijuana (THC) Screen Negative ng/mL (Negative) 08/18/25 19:21 Ethyl Alcohol < 10 mg/dL (0-10) 08/18/25 17:47 Discharge Plan Discharge Patient Disposition: Xfer Psychiatric Hosp Clinical Impression: Suicidal ideation Condition: Stable Coding Level of Care Code ED Scheduling Coordinator for [place]os[place]
[2025-08-18 18:12] LABS: Alanine Aminotransferase 43 U/L (0-33); Albumin Level 4.5 g/dL (3.5-5.2); Alkaline Phosphatase 147 U/L (35-105); Aspartate Amino Transferase 23 U/L (0-32); Blood Urea Nitrogen 11 mg/dL (6-20); Calcium 9.4 mg/dL (8.5-10.5); Carbon Dioxide 20 mmol/L (22-29); Chloride 108 mmol/L (98-107); Globulin 2.3 g/dL (1.3-4.6); Glucose 91 mg/dL (65-115); Osmolality Calculated 287 mOsm/kg (285-295); Sodium 139 mmol/L (136-145); Total Protein 6.8 g/dL (6.6-8.7)
[2025-08-18 18:15] LABS: Acetaminophen < 5.0 ug/mL (10-30); Alcohol Level < 10 mg/dL (0-10); Salicylate < 0.3 mg/dL (3-10)
[2025-08-18 18:16] LABS: Anion Gap 15.2 (5-19); Potassium 4.2 mmol/L (3.5-5.1)
[2025-08-18 19:30] LABS: HCG Qualitative Urine. Negative (Negative)
[2025-08-18 19:40] LABS: PCP Screen Urine Negative (Negative)
[2025-08-18 20:54] VITALS: BP 138/77; PULSE 76; O2SAT 98
[2025-08-19 01:02] VITALS: BP 139/71; PULSE 75; RESP 16; O2SAT 99
[2025-08-19 04:50] VITALS: BP 143/81; PULSE 78; RESP 17; O2SAT 98
[2025-08-19 09:22] VITALS: BP 103/66; PULSE 96; RESP 20; TEMP 37.1; O2SAT 98
--- NOTE | 2025-08-19 09:31 | PC.ADMIT ---
[email or web address] [facility] Admission Note: The patient,Yari Pollock,20 y/o, was given written information regarding hospital policies, unit procedures and contact persons. Patient's smoking status: . Vital Signs - 8 hr 08/19/25 04:50 08/19/25 09:11 08/19/25 09:22 Temperature 98.7 F Pulse Rate 78 96 Respiratory Rate 17 20 H Blood Pressure 143/81 103/66 Pulse Oximetry 98 98 Oxygen Delivery Method Room Air Room Air Room Air Pt. admitted to [facility] from ER @ 0910 d/t hallucinations and SI. Pt. lives with her mom who is her guardian. Pt. stated her sister is moving away and is upset about this. Pt. also says she only forgot to take her medications one day. Pt. has recently lost wt. d/t she is on a weight loss inj. medication. No skin issues noted at time of assessment.
--- NOTE | 2025-08-19 09:43 | PC.NURSE ---
medications reconciled.
[2025-08-19 14:00] VITALS: BP 110/76; PULSE 77; RESP 18; TEMP 37; O2SAT 98
--- NOTE | 2025-08-19 17:37 | W.PM.NPUDCS ---
Reason for Visit Reason for Visit: si Involuntary Hold Information Hold Status: Legal Status: Active Guardianship 96 Hour Hold: 96 Hour Involuntary Admission: Yes Other Hold: Hold End Date: 11/02/24 Discharge Data Studies Completed and Pending: Laboratory Results WBC 7.72 10^3/uL (3.2 9-11.43) 08/18/25 17:47 RBC 4.37 10^6/uL (3.8 5-5.65) 08/18/25 17:47 Hgb 12.60 g/dL (11.27 -16.99) 08/18/25 17:47 Hct 41.5 % (36-47) 08/18/25 17:47 MCV 95.0 fl (85-98) 08/18/25 17:47 MCH 28.8 pg (27-33) 08/18/25 17:47 MCHC 30.4 g/dL (30-55) 08/18/25 17:47 RDW 12.6 % (12.1-15.1 ) 08/18/25 17:47 Plt Count 226 10^3/cmm (157 -399) 08/18/25 17:47 MPV 11.1 fL (7.4-10.4 ) H 08/18/25 17:47 Neut % (Auto) 66.4 % 08/18/25 17:47 Lymph % (Auto) 26.9 % 08/18/25 17:47 [place] % (Auto) 5.2 % 08/18/25 17:47 Eos % (Auto) 0.6 % 08/18/25 17:47 Baso % (Auto) 0.8 % 08/18/25 17:47 Neut # (Auto) 5.12 10^3/uL (1.8 -7.7) 08/18/25 17:47 Lymph # (Auto) 2.1 10^3/uL (0.8- 4.8) 08/18/25 17:47 [place] # (Auto) 0.4 10^3/uL (0.2- 0.9) 08/18/25 17:47 Eos # (Auto) 0.1 10^3/uL (0.0- 0.8) 08/18/25 17:47 Baso # (Auto) 0.1 10^3/uL (0.0- 0.1) 08/18/25 17:47 Nucleated RBC % (a uto) 0 % 08/18/25 17:47 Nucleated RBCs # 0.0 /100WBC 08/18/25 17:47 Sodium 139 mmol/L (136-1 45) 08/18/25 17:47 Potassium 4.2 mmol/L (3.5-5 .1) 08/18/25 17:47 Chloride 108 mmol/L (98-10 7) H 08/18/25 17:47 Carbon Dioxide 20 mmol/L (22-29) L 08/18/25 17:47 Anion Gap 15.2 (5-19) 08/18/25 17:47 BUN 11 mg/dL (6-20) 08/18/25 17:47 Creatinine 0.8 mg/dL (0.5-0. 9) 08/18/25 17:47 GFR Calculation 90.5 mL/min (90-1 30) 08/18/25 17:47 Glucose 91 mg/dL (65-115) 08/18/25 17:47 Calculated Osmolal ity 287 mOsm/kg (285- 295) 08/18/25 17:47 Calcium 9.4 mg/dL (8.5-10 .5) 08/18/25 17:47 Total Bilirubin 0.2 mg/dL (0.15-1 .2) 08/18/25 17:47 AST 23 U/L (0-32) 08/18/25 17:47 ALT 43 U/L (0-33) H 08/18/25 17:47 Alkaline Phosphata se 147 U/L (35-105) H 08/18/25 17:47 Total Protein 6.8 g/dL (6.6-8.7 ) 08/18/25 17:47 Albumin 4.5 g/dL (3.5-5.2 ) 08/18/25 17:47 Globulin 2.3 g/dL (1.3-4.6 ) 08/18/25 17:47 HCG, Qual Negative (Negati ve) 08/18/25 19:21 Salicylates < 0.3 mg/dL (3-10 ) L 08/18/25 17:47 Urine Opiates Scre en Negative ng/mL (N egative) 08/18/25 19:21 Acetaminophen < 5.0 ug/mL (10-3 0) L 08/18/25 17:47 Ur Barbiturates Sc reen Negative ng/mL (N egative) 08/18/25 19:21 Ur Phencyclidine S crn Negative ng/mL (N egative) 08/18/25 19:21 Ur Amphetamines Sc reen Negative ng/mL (N egative) 08/18/25 19:21 U Benzodiazepines Scrn Negative ng/mL (N egative) 08/18/25 19:21 Urine Cocaine Scre en Negative ng/mL (N egative) 08/18/25 19:21 U Marijuana (THC) Screen Negative ng/mL (N egative) 08/18/25 19:21 Ethyl Alcohol < 10 mg/dL (0-10) 08/18/25 17:47 Vitals: Last Vital Signs Temp 98.6 F 08/19/25 14:00 Pulse 77 08/19/25 14:00 Resp 18 08/19/25 14:00 BP 110/76 08/19/25 14:00 Pulse Ox 98 08/19/25 14:00 O2 Del Method Room Air 08/19/25 14:00 Discharge Plan Discharge Patient Disposition: Home Condition: Stable Prescriptions: No Action haloperidol decanoate [Haldol Decanoate] 100 mg/mL solution 100 mg IM .monthly Qty: 1 3RF benztropine 1 mg tablet 1 mg PO BID Qty: 60 5RF bupropion HCl [Wellbutrin XL] 300 mg tablet extended release 24 hr 300 mg PO QAM Qty: 30 3RF buspirone 5 mg tablet 5 mg PO TID PRN (Reason: anxiety) Qty: 90 3RF haloperidol 5 mg tablet 5 mg PO TID Qty: 90 3RF lithium carbonate 600 mg capsule 600 mg PO .in PM Qty: 30 3RF naltrexone 50 mg tablet 50 mg PO DAILY 30 Days Qty: 30 3RF oxcarbazepine 300 mg tablet 300 mg PO BID 30 Days Qty: 60 3RF ziprasidone HCl [Geodon] 20 mg capsule 40 mg PO DAILY Qty: 30 3RF Rx Instructions: give with food (meal/snack) Zepbound 2.5 mg/0.5 mL pen injector 2.5 mg SUBCUT Q7D Referrals: Jorge Alberto Rivas MD [Primary Care Provider, Family Practice] Patient Instructions: Opioid Safety, Patient Portal & [place] Instructions Coding Level of Care Code Acute Code for Chg Fwd
--- NOTE | 2025-08-19 17:59 | W.PM.NPUH&PS ---
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 Status/History: Current legal issues denied Demographics Marital Status: single Ethnicity: Cultural Background: No Other Cultural concerns Spiritual Pursuits: Confucianism (Yari asks to watch online sabianist every week. This is very important to her ) Do you think of yourself as: Straight/Heterosexual Gender Identity: Female Language(s) Spoken: Scottish Custody/Guardianship [facility] until March 2023 Education Highest Education Level Reached: middle school (8th grade ) Academic Performance: Performance below grade level Extracurricular Activities: None Special Accommodations: None Disciplinary Actions: None Health Is Patient in Pain?: No Primary Care Provider: Yes (See's the provider at the residential ) Have you been seen by your primary care provider or [employer] in the past 12 months?: Yes Last Physical Exam: Within past year Other Healthcare Providers Dr. Bishop-Psychiatrist, aJir Mathews, Therapist Client's Medical History: None Reported Family Medical History: Cancer and Diabetes Allergies divalproex sodium [From Depakote] Allergy (Verified 01/29/21 07:50) makes me stay awake for days at a time, no appetiteondansetron [From Zofran] Allergy (Verified 01/29/21 07:50) hard time breathing. Hospital Course Hospital Course She slowly acclimated to the individual, group and milieu therapies provided.? She presented to the hospital with reports of increased depression, anxiety and some suicidal thinking.? This is consistent with previous hospitalizations which have been filled with the challenges of her borderline personality disorder, self-injurious behavior and wanting to be on a one-to-one to have people around her.? Towards the end of her stay we did not have her on a one-to-one and continue to encourage her to focus on things she could do to get her privileges back on the unit.? It is noteworthy that her self-injurious behavior has never clearly put her in danger but seem to be a clear indication of her being emotionally unstable and having significant emotional instability.? Her Tegretol was decreased to 300 mg p.o. twice daily with the plan that her outpatient team could consider discontinuing that.? She was restarted on BuSpar and given Klonopin as a as needed medication without difficulty.? Her medications were otherwise unchanged.? We continued to stressed that we wanted her to engage in a DBT as an outpatient.? We discussed with mom that there seemed to be no true suicidal intent or desire to but that she continue to do small things that would not lead to significant injury.? The medication changes along with the treatment milieu led to a positive response.? During that admission she had significant improvement.? She was able to contract for safety outside of the hospital prior to discharge.? But we discussed with mother the likelihood of continued self-injurious behavior which she expected.? She worked with the social work team on outpatient resources and follow-ups' During hospitalization she had routine laboratory studies which were within normal limits except for a few outliers.? Additionally had a general medical evaluation which is also within normal limits and revealed no new acute processes. Discharge summary: At the time of discharge, she was absent lethality and psychosis.? Mood and anxiety were well managed.? Patient endorsed a plan to avoid all drugs of abuse and follow-up with the aftercare recommendations of the treatment team.? Patient was evaluated and deemed to be absent credible lethality, and had achieved the maximum benefit from an inpatient hospitalization, so was discharged. Meds NPU Home Medications ?Medication ?Instructions ?Recorded ?Confirmed ?Last Taken ?Type haloperidol decanoate 100 mg/mL 100 mg IM .monthly #1 mL 07/05/25 08/19/25 Unknown Rx intramuscular solution (Haldol Decanoate) benztropine 1 mg tablet 1 mg PO BID #60 tabs 07/12/25 08/19/25 Unknown Rx bupropion HCl 300 mg 24 hr tablet, 300 mg PO QAM #30 tabs 07/12/25 08/19/25 Unknown Rx extended release (Wellbutrin XL) buspirone 5 mg tablet 5 mg PO TID PRN anxiety #90 tabs 07/12/25 08/19/25 Unknown Rx haloperidol 5 mg tablet 5 mg PO TID #90 tabs 07/12/25 08/19/25 Unknown Rx lithium carbonate 600 mg capsule 600 mg PO .in PM #30 caps 07/12/25 08/19/25 Unknown Rx naltrexone 50 mg tablet 50 mg PO DAILY 30 days #30 tabs 07/12/25 08/19/25 Unknown Rx oxcarbazepine 300 mg tablet 300 mg PO BID 30 days #60 tabs 07/12/25 08/19/25 Unknown Rx ziprasidone HCl 20 mg capsule 40 mg (2 x 20 mg) PO DAILY #30 caps 07/12/25 08/19/25 Unknown Rx (Geodon) tirzepatide (weight loss) 2.5 2.5 mg SUBCUT Q7D 08/19/25 08/19/25 Unknown History mg/0.5 mL subcutaneous pen injector (Zepbound) Allergies Allergy/AdvReac Type Severity Reaction Status Date / Time divalproex sodium (From Allergy makes me Verified 07/30/25 12:25 Depakote) stay awake for days at a time, no appetite ondansetron (From Zofran) Allergy hard time Verified 07/30/25 12:25 breathing PFSH NPU PFSH: Medical History (Updated 08/18/25 @ 21:57 by TRIINTY Hernandez) Bipolar disorder, current episode mixed, severe, with psychotic features Psychiatric care Mental Status Exam MSE Comments: This is an obese versus obese white female in hospital scrubs with limited grooming and fair eye contact. No abnormal involuntary motor movements appreciated except for mild psychomotor retardation. There were no new scratch griffin appreciated. Mood was described as okay. Her affect was restricted in range. Thought process was linear, but superficial. Thought content: Patient denied suicidal or homicidal ideation although she had acknowledged making threats to strangle herself. There were no delusions reported or noted, she denied any auditory or visual hallucinations. Attention and concentration appeared intact and memory was somewhat reliable but no more formally tested. She is alert and oriented to person and place and time. Insight and judgment are limited versus impaired and impulse control is impaired. Intelligence appeared commensurate with mild cognitive impairment. Vitals/I&O/Wt Last Vital Signs Temp 98.6 F 08/19/25 14:00 Pulse 77 08/19/25 14:00 Resp 18 08/19/25 14:00 BP 110/76 08/19/25 14:00 Pulse Ox 98 08/19/25 14:00 O2 Del Method Room Air 08/19/25 14:00 Weight last 48 hrs Weight 78.471 kg Data NPU 08/18/25 17:47 08/18/25 17:47 A&P Assessment and plan 1. Major depressive disorder, recurrent, severe with psychotic symptoms: 2. Borderline personality disorder in adolescent: 3. Post-traumatic stress disorder, unspecified: 4. Generalized anxiety disorder: 5. Suicidal ideation: Plan: This is a 20-year-old white female with a long history of mental health challenges with dozens of inpatient hospitalizations and past outpatient services who was last hospitalized here in March of 2025 who presented again with reports of suicidal thinking and thoughts to self-harm. S She has a guardian which is her mother and she endorsed symptoms consistent with borderline personality disorder. 1. Restart outpatient medications. 2. Encourage individual, group and milieu therapy. Patient would benefit from outpatient DBT. 3. Return to every 15 minute checks for safety as she had been placed on one-to-one overnight. We will continue to fight to keep her off of one-to-one as she continues to do very minuscule self-harm behaviors in an attempt to get one-to-one back. We will have a conversation with mother tomorrow about how to approach this moving forward. 4. She has expressed interest in returning home and a short stay may be warranted at this time. PDMP PDMP Reviewed: Not Reviewed Involuntary Hold Information Hold Status: Legal Status: Active Guardianship 96 Hour Hold: 96 Hour Involuntary Admission: Yes Other Hold: Hold End Date: 11/02/24 Attestations NPU Medical Necessity Statement*: Inpatient hospitalization is medically necessary and the clinically appropriate intervention at this time. We will monitor medications and make changes as indicated. She will be in the hospital for over 2 midnights. Likely length of stay 4 to 6 days. Coding Level of Care Code Acute Code for [facility] Fwd Diagnoses Major depressive disorder, recurrent, severe with psychotic symptoms F33.3 Borderline personality disorder in adolescent F60.3 Post-traumatic stress disorder, unspecified F43.10 Generalized anxiety disorder F41.1 Suicidal ideation R45.858
[2025-08-19 20:51] VITALS: BP 133/92; PULSE 89; RESP 19; TEMP 36.9; O2SAT 95
[2025-08-20 06:00] VITALS: BP 122/87; PULSE 98; RESP 18; TEMP 36.6; O2SAT 96
[2025-08-20 14:00] VITALS: BP 101/67; PULSE 84; RESP 16; TEMP 36.7; O2SAT 98
[2025-08-20 14:09] VITALS: BP 101/67; PULSE 84; RESP 16; TEMP 36.7; O2SAT 98
--- NOTE | 2025-08-20 17:17 | W.PM.NPUDCS ---
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 Assistance, Cooperative and Good Communication Individual's Obstacles: Low Self-Esteem, Chronic Mental Illness, Chaotic Lifestyle, Limited Insight and Poor Support System Legal Status/History: Current legal issues denied Demographics Marital Status: single Ethnicity: Cultural Background: No Other Cultural concerns Spiritual Pursuits: Yazidism (Yari asks to watch online yazidi every week. This is very important to her ) Do you think of yourself as: Straight/Heterosexual Gender Identity: Female Language(s) Spoken: Croatian Custody/Guardianship [facility] until March 2023 Education Highest Education Level Reached: middle school (8th grade ) Academic Performance: Performance below grade level Extracurricular Activities: None Special Accommodations: None Disciplinary Actions: None Health Is Patient in Pain?: No Primary Care Provider: Yes (See's the provider at the residential ) Have you been seen by your primary care provider or [employer]OR in the past 12 months?: Yes Last Physical Exam: Within past year Other Healthcare Providers Dr. Bishop-Psychiatrist, Jair Mathews, Therapist Client's Medical History: None Reported Family Medical History: Cancer and Diabetes Allergies divalproex sodium [From Depakote] Allergy (Verified 01/29/21 07:50) makes me stay awake for days at a time, no appetiteondansetron [From Zofran] Allergy (Verified 01/29/21 07:50) hard time breathing. Hospital Course She slowly acclimated to the individual, group and milieu therapies provided.? She presented to the hospital with reports of increased depression, anxiety and some suicidal thinking.? This is consistent with previous hospitalizations which have been filled with the challenges of her borderline personality disorder, self-injurious behavior and wanting to be on a one-to-one to have people around her.? Towards the end of her stay we did not have her on a one-to-one and continue to encourage her to focus on things she could do to get her privileges back on the unit.? It is noteworthy that her self-injurious behavior has never clearly put her in danger but seem to be a clear indication of her being emotionally unstable and having significant emotional instability.? Her Tegretol was decreased to 300 mg p.o. twice daily with the plan that her outpatient team could consider discontinuing that.? She was restarted on BuSpar and given Klonopin as a as needed medication without difficulty.? Her medications were otherwise unchanged.? We continued to stressed that we wanted her to engage in a DBT as an outpatient.? We discussed with mom that there seemed to be no true suicidal intent or desire to but that she continue to do small things that would not lead to significant injury.? The medication changes along with the treatment milieu led to a positive response.? During that admission she had significant improvement.? She was able to contract for safety outside of the hospital prior to discharge.? But we discussed with mother the likelihood of continued self-injurious behavior which she expected.? She worked with the social work team on outpatient resources and follow-ups' During hospitalization she had routine laboratory studies which were within normal limits except for a few outliers.? Additionally had a general medical evaluation which is also within normal limits and revealed no new acute processes. Discharge summary: At the time of discharge, she was absent lethality and psychosis.? Mood and anxiety were well managed.? Patient endorsed a plan to avoid all drugs of abuse and follow-up with the aftercare recommendations of the treatment team.? Patient was evaluated and deemed to be absent credible lethality, and had achieved the maximum benefit from an inpatient hospitalization, so was discharged. Hospital Course Hospital Course The patient was restarted on her outpatient medications with no changes made during her hospital stay. She had not engaged in any self injury while she was on the unit and expressed interest in returning home and learning better ways to manage her frequent thoughts of self-injury. During the hospitalization, the patient had routine laboratory studies which were within normal limits except for a few outliers.? Additionally, there was a general medical evaluation which was also within normal limits and revealed no new acute processes.? At the time of discharge, lethality was denied and psychosis was resolving.? Mood and anxiety were well managed.? The patient endorsed a plan to avoid all drugs of abuse and follow up with the aftercare recommendations of the treatment team.? The patient was evaluated and deemed to be absent credible lethality and had achieved the maximum benefit from an inpatient hospitalization, and so was discharged.? Involuntary Hold Information Hold Status: Legal Status: Active Guardianship 96 Hour Hold: 96 Hour Involuntary Admission: Yes Other Hold: Hold End Date: 11/02/24 Mental Status Exam MSE Comments: This is an obese versus obese white female in hospital scrubs with limited grooming and fair eye contact. No abnormal involuntary motor movements appreciated except for mild psychomotor retardation. Speech was normal in volume with a clear speech impediment appreciated. There were no new scratch griffin appreciated. Mood was described as good. Her affect was euthymic. Thought process was linear, logical and goal directed. Thought content: Patient denied suicidal or homicidal ideation on discharge. There were no delusions reported or noted, she denied any auditory or visual hallucinations. Attention and concentration appeared intact and memory was somewhat reliable but no more formally tested. She is alert and oriented to person and place and time. Insight was limited. Judgment was fair on discharge. and judgment and impulse control is fair. Intelligence appeared commensurate with mild cognitive impairment. Discharge Data Studies Completed and Pending: Laboratory Results WBC 7.72 10^3/uL (3.2 9-11.43) 08/18/25 17:47 RBC 4.37 10^6/uL (3.8 5-5.65) 08/18/25 17:47 Hgb 12.60 g/dL (11.27 -16.99) 08/18/25 17:47 Hct 41.5 % (36-47) 08/18/25 17:47 MCV 95.0 fl (85-98) 08/18/25 17:47 MCH 28.8 pg (27-33) 08/18/25 17:47 MCHC 30.4 g/dL (30-55) 08/18/25 17:47 RDW 12.6 % (12.1-15.1 ) 08/18/25 17:47 Plt Count 226 10^3/cmm (157 -399) 08/18/25 17:47 MPV 11.1 fL (7.4-10.4 ) H 08/18/25 17:47 Neut % (Auto) 66.4 % 08/18/25 17:47 Lymph % (Auto) 26.9 % 08/18/25 17:47 [place] % (Auto) 5.2 % 08/18/25 17:47 Eos % (Auto) 0.6 % 08/18/25 17:47 Baso % (Auto) 0.8 % 08/18/25 17:47 Neut # (Auto) 5.12 10^3/uL (1.8 -7.7) 08/18/25 17:47 Lymph # (Auto) 2.1 10^3/uL (0.8- 4.8) 08/18/25 17:47 [place] # (Auto) 0.4 10^3/uL (0.2- 0.9) 08/18/25 17:47 Eos # (Auto) 0.1 10^3/uL (0.0- 0.8) 08/18/25 17:47 Baso # (Auto) 0.1 10^3/uL (0.0- 0.1) 08/18/25 17:47 Nucleated RBC % (a uto) 0 % 08/18/25 17:47 Nucleated RBCs # 0.0 /100WBC 08/18/25 17:47 Sodium 139 mmol/L (136-1 45) 08/18/25 17:47 Potassium 4.2 mmol/L (3.5-5 .1) 08/18/25 17:47 Chloride 108 mmol/L (98-10 7) H 08/18/25 17:47 Carbon Dioxide 20 mmol/L (22-29) L 08/18/25 17:47 Anion Gap 15.2 (5-19) 08/18/25 17:47 BUN 11 mg/dL (6-20) 08/18/25 17:47 Creatinine 0.8 mg/dL (0.5-0. 9) 08/18/25 17:47 GFR Calculation 90.5 mL/min (90-1 30) 08/18/25 17:47 Glucose 91 mg/dL (65-115) 08/18/25 17:47 Calculated Osmolal ity 287 mOsm/kg (285- 295) 08/18/25 17:47 Calcium 9.4 mg/dL (8.5-10 .5) 08/18/25 17:47 Total Bilirubin 0.2 mg/dL (0.15-1 .2) 08/18/25 17:47 AST 23 U/L (0-32) 08/18/25 17:47 ALT 43 U/L (0-33) H 08/18/25 17:47 Alkaline Phosphata se 147 U/L (35-105) H 08/18/25 17:47 Total Protein 6.8 g/dL (6.6-8.7 ) 08/18/25 17:47 Albumin 4.5 g/dL (3.5-5.2 ) 08/18/25 17:47 Globulin 2.3 g/dL (1.3-4.6 ) 08/18/25 17:47 HCG, Qual Negative (Negati ve) 08/18/25 19:21 Salicylates < 0.3 mg/dL (3-10 ) L 08/18/25 17:47 Urine Opiates Scre en Negative ng/mL (N egative) 08/18/25 19:21 Acetaminophen < 5.0 ug/mL (10-3 0) L 08/18/25 17:47 Ur Barbiturates Sc reen Negative ng/mL (N egative) 08/18/25 19:21 Ur Phencyclidine S crn Negative ng/mL (N egative) 08/18/25 19:21 Ur Amphetamines Sc reen Negative ng/mL (N egative) 08/18/25 19:21 U Benzodiazepines Scrn Negative ng/mL (N egative) 08/18/25 19:21 Urine Cocaine Scre en Negative ng/mL (N egative) 08/18/25 19:21 U Marijuana (THC) Screen Negative ng/mL (N egative) 08/18/25 19:21 Ethyl Alcohol < 10 mg/dL (0-10) 08/18/25 17:47 Vitals: Last Vital Signs Temp 98.1 F 08/20/25 14:09 Pulse 84 08/20/25 14:09 Resp 16 08/20/25 14:09 BP 101/67 08/20/25 14:09 Pulse Ox 98 08/20/25 14:09 O2 Del Method Room Air 08/20/25 14:00 Discharge Plan Discharge Patient Disposition: Home Condition: Stable Prescriptions: New lithium carbonate 300 mg Capsule 300 mg PO 0900 30 Days Qty: 30 2RF Continued haloperidol decanoate [Haldol Decanoate] 100 mg/mL solution 100 mg IM .monthly Qty: 1 3RF benztropine 1 mg tablet 1 mg PO BID Qty: 60 5RF bupropion HCl [Wellbutrin XL] 300 mg tablet extended release 24 hr 300 mg PO QAM Qty: 30 3RF buspirone 5 mg tablet 5 mg PO TID PRN (Reason: anxiety) Qty: 90 3RF haloperidol 5 mg tablet 5 mg PO TID Qty: 90 3RF lithium carbonate 600 mg capsule 600 mg PO .in PM Qty: 30 3RF naltrexone 50 mg tablet 50 mg PO DAILY 30 Days Qty: 30 3RF oxcarbazepine 300 mg tablet 300 mg PO BID 30 Days Qty: 60 3RF Zepbound 2.5 mg/0.5 mL pen injector 2.5 mg SUBCUT Q7D ziprasidone HCl [Geodon] 20 mg capsule 40 mg PO DAILY Qty: 60 3RF Rx Instructions: give with food (meal/snack) Discharge Order = DC NOW: Discharge Order (Routine); Ordered 08/20/25 Ordered By: John Shaw Referrals: Jacey Alicea PMHNP [Staff Physician, Psychiatry] - 08/27/25 1:45 pm Referral Note: Hospital follow up Jorge Alberto Rivas MD [Primary Care Provider, Family Practice] Discharge Diet: Usual diet Discharge Activity: Resume usual activity Patient Instructions: Depression (DC), Anxiety (DC), Suicide Prevention (DC), Opioid Safety, Patient Portal & [place] Instructions Discharge Attestations NPU Time Spent in Discharge Care*: less than 30 min Specific Discharge Activities: Specific discharge activities: educating patient, documenting/other paperwork and evaluating patient/reviewing data Coding Level of Care Code Acute Code for [facility] Fwd Diagnoses Major depressive disorder, recurrent, severe with psychotic symptoms F33.3 Borderline personality disorder in adolescent F60.3 Post-traumatic stress disorder, unspecified F43.10 Generalized anxiety disorder F41.1 Suicidal ideation R45.852
== END 2025-08-20 14:40 | disposition home or self-care (01) | DRG 750 ==
LOC: ER 21:57 → ER IP 22:04 → NP 08-19 09:05
PROVIDERS: Emergency Medicine; Admitting Provider Psychiatry & Neurology Psychiatry; Emergency Provider Physician Assistant; PCP Family Medicine; Visit Provider Psychiatry & Neurology Psychiatry
DX: F33.3 Major depressive disorder, recurrent, severe with psychotic symptoms (principal); F60.3 Borderline personality disorder; F43.10 Post-traumatic stress disorder, unspecified; F41.1 Generalized anxiety disorder; R45.851 Suicidal ideations; E66.9 Obesity, unspecified; Z68.34 Body mass index [BMI] 34.0-34.9, adult
CPT/HCPCS: 80053; 80306; 80307; 81025; 85025; 93005; 97150; 97165; 99285; J9999